=== PATIENT | female | born 1990 | race Caucasian/White ===

== ENCOUNTER 2019-08-03 11:59 | Outpatient (CLI) | payer OTHER, SELFPAY ==
--- NOTE | 2019-08-03 12:39 | ECG_ITS ---
Measurements Intervals [place] Rate: 64 P: 27 MT: 137 QRS: 10 QRSD: 106 T: 5 QT: 447 QTc: 463 Interpretive Statements SINUS RHYTHM INCOMPLETE RIGHT BUNDLE BRANCH BLOCK BORDERLINE T WAVE ABNORMALITY- INFERIOR LEADS BORDERLINE ECG Electronically Signed On 08-03-2019 14:22:39 COMMUNITY EDUCATOR by Jaciel Amaro D.O.
[2019-08-03 12:49] LABS: Hematocrit 40.5 % (37.0-47.0); Hemoglobin 13.3 g/dL (12.0-15.0); Mean Corpuscular HGB Conc 32.8 g/dl (32-36); Mean Corpuscular Hemoglobin 30.5 pg (26-34); Mean Corpuscular Volume 92.9 fl (80-100); Mean Platelet Volume 11.7 fl (7.4-10.4); Platelet Count Result 236 k/mm3 (150-375); Red Blood Count 4.36 M/mm3 (4.2-5.4); Red Cell Distribution Width 13.1 % (11.5-14.5); White Blood Count 10.8 K/mm3 (4.5-10.0)
[2019-08-03 12:55] LABS: Alanine Aminotransferase 36 U/L (4-35); Alkaline Phosphatase 71 U/L (38-126); Aspartate Amino Transferase 28 U/L (14-36); Bilirubin,Total 0.4 mg/dL (0.2-1.3); Blood Urea Nitrogen 9 mg/dL (7-17); Calcium 9.1 mg/dL (8.4-10.2); Carbon Dioxide 23 mmol/L (22-30); Chloride 103 mmol/L (98-107); Estimated Glomerular Filt Rate > 60; Glucose 98 mg/dL (65-105); Potassium 4.3 mmol/L (3.4-5.0); Sodium 141 mmol/L (137-145)
[2019-08-03 13:14] LABS: Add Urine Microscopic? YES; Appearance Urine Cloudy (Clear); Bacteria Urine Trace /hpf; Bilirubin Urine Negative (Negative); Blood Urine Negative (Negative); Color Urine Yellow (Yellow); Glucose Urine UA Negative (Negative); Ketones Urine Negative (Negative); Leukocyte Esterase Ur 2+ LEU/UL (NEGATIVE); Mucus Urine Heavy /lpf; Nitrate Urine Negative (Negative); Protein Urine Negative (Negative); Specific Grav Ur 1.021 (1.001-1.035); Squamous Epithelial Cell Urine Many /hpf (Few); Urobilinogen Urine Negative mg/dL (<2.0)
[2019-08-03 13:25] LABS: Hepatitis B Surface Antigen Negative (Negative)
[2019-08-03 13:31] LABS: HAV RESULT Negative (Negative); Hepatitis B Core IgM Result Negative (Negative)
[2019-08-03 13:43] LABS: Hepatitis C Virus Antibody Negative (Negative)
[2019-08-06 00:44] LABS: Amphetamines negative; Barbiturates negative; Benzodiazepines negative; Cocaine Metabolites negative; Marijuana Metabolites POSITIVE; PCP negative
[2019-08-06 07:26] LABS: Rapid Plasma Reagin Non-Reactive (NonReactive)
== END 2019-08-03 12:00 | disposition home or self-care (01) ==
DX: Z51.81 Encounter for therapeutic drug level monitoring (principal); Z79.899 Other long term (current) drug therapy; F11.20 Opioid dependence, uncomplicated; I45.10 Unspecified right bundle-branch block
CPT/HCPCS: 36415; 80053; 80074; 80307; 81001; 85027; 86592; 93005

== ENCOUNTER 2023-04-28 17:17 | Emergency (ER) | payer OTHER, SELFPAY ==
--- NOTE | ~2023-04-28 | XR_ITS ---
EXAMINATION: XR chest 2V DATE: 04/28/2023 17:45 INDICATION: Cough. Shortness of breath. TECHNIQUE: Frontal and lateral views of the chest were obtained. COMPARISON: Chest 2 views 10/12/2018, chest CT 10/12/2018 FINDINGS: There is no pneumonia, pleural effusion, or pneumothorax. The heart size is normal. IMPRESSION: 1. No acute cardiopulmonary disease. Reviewed, dictated and finalized at location E. [facility]
--- NOTE | 2023-04-28 17:30 | ED.URI ---
HPI - URI/Sore Throat General Chief Complaint: Upper Respiratory Infection Stated Complaint: short of breath, sinus pressure Time Seen by Provider: 04/28/23 17:30 Source: patient, RN notes reviewed and old records reviewed Mode of arrival: ambulatory Limitations: no limitations History of Present Illness HPI Narrative: 32-year-old female presents to the [facility] with complaints of sinus congestion, shortness of breath, productive cough for 10 days. Had been taking Mucinex with no relief. Patient is a smoker. Related Data Home Medications Medication Instructions Recorded Confirmed buprenorphine 8 mg-naloxone 2 mg 1 tablet sublingual DIRECTED 04/28/23 04/28/23 sublingual tablet quetiapine 50 mg tablet 50 mg DIRECTED 04/28/23 04/28/23 Allergies Allergy/AdvReac Type Severity Reaction Status Date / Time amoxicillin [From Augmentin] Allergy Mild Hypertensio Verified 04/28/23 17:49 n clavulanic acid Allergy Mild Hypertensio Verified 04/28/23 17:49 [From Augmentin] n Review of Systems Review of Systems: All systems reviewed & are unremarkable except as noted in HPI and below Constitutional: Constitutional: Reports no additional constitutional complaints Eyes: Eyes: Reports no additional eye complaints ENT: Reports as per HPI Cardiovascular: Cardiovascular: Reports no additional cardiovascular complaints, Denies chest pain and Denies dyspnea Respiratory: Respiratory: Reports as per HPI, Reports chest congestion, Reports cough and Denies dyspnea Gastrointestinal: Gastrointestinal: Reports no additional gastrointestinal complaints, Denies abdominal pain, Denies nausea and Denies vomiting Musculoskeletal: Musculoskeletal: Reports no additional musculoskeletal complaints Integumentary/Breasts: Skin/Breast: Reports system reviewed and no additional complaints, except as docu Neurologic: Reports system reviewed and no additional complaints, except as documented Psychiatric: Psychiatric: Reports no additional psychiatric complaints Allergic/Immunologic: Allergic/Immunologic: Reports no additional allergic/immunologic complaints PMFSH Past Medical History Medical History (Updated 04/28/23 @ 19:24 by Keeley Kaba APRN) Anxiety and depression Comments At the time of my signature, I reviewed and agree with the nursing past medical, surgical, social, and family history. There is no relevant family history pertinent to the patient complaint. Exam Const: General: cooperative, healthy appearing, comfortable, no acute distress, well developed, alert and well nourished Nutritional Appearance: well nourished and obese Orientation/consciousness: patient oriented x3 Limitations: no limitations HENMT: Head: normal to inspection Ears: hearing grossly normal bilaterally, external ears normal, TM's normal bilaterally, EAC's normal, mastoids normal and no periauricular adenopathy Face/Nose/Sinus: Normal external nose present, Normal nares present, Normal nasal mucous membranes and turbinates present, normal facial exam and face symmetric Face and sinus: normal facial exam and face symmetric Mouth: Yes Normal oral and palatal mucosa present, Yes lip normal and Yes moist mucous membranes Throat: posterior oropharynx normal, uvula midline and postnasal drainage Eyes: General: appearance normal, both eyes and all related structures Alignment and Position: alignment normal Periorbital: periorbital findings normal Pupils: Equal, round and reactive pupils present EOM: EOMs intact bilaterally Neck: Neck: normal visual inspection, full ROM, no lymphadenopathy and no meningeal signs Chest: Chest palpation & inspection: normal inspection of the chest Resp: Effort & Inspection: normal respiratory effort and able to speak in complete sentences Auscultation: no crackles, no rales, no rhonchi and wheezes inspiratory wheezes and throughout Cardio: Rate: regular rate Rhythm: regular rhythm Back/Spine/Pelvis: Ce
[2023-04-28 17:31] VITALS: BP 116/76; PULSE 81; RESP 16; TEMP 36.7; O2SAT 97
[2023-04-28 17:49] VITALS: BP 116/76; PULSE 81; RESP 16; TEMP 36.7; O2SAT 97
== END 2023-04-28 18:04 | disposition home or self-care (01) ==
PROVIDERS: Emergency Provider Nurse Practitioner
DX: J40 Bronchitis, not specified as acute or chronic (principal)
CPT/HCPCS: 71046; 99213; G0463

== ENCOUNTER 2023-06-18 16:43 | Emergency (ER) | payer OTHER, SELFPAY ==
[2023-06-18 16:53] VITALS: BP 137/69; PULSE 65; RESP 16; TEMP 36.1; O2SAT 98
--- NOTE | 2023-06-18 17:51 | ED.DENTAL ---
HPI - Dental/Oral General Chief complaint: Dental/Oral Stated complaint: tooth pain right side Time Seen by Provider: 06/18/23 17:51 Source: patient Mode of arrival: ambulatory Limitations: no limitations History of Present Illness HPI Narrative: 32-year-old female presents with right lower dental pain for 2 days. Afebrile. Does not a dentist. Requesting antibiotic and viscous lidocaine. All systems reviewed and negative except as noted above. Related Data Allergies Allergy/AdvReac Type Severity Reaction Status Date / Time amoxicillin [From Augmentin] Allergy Mild Hypertensio Verified 04/28/23 17:49 n clavulanic acid Allergy Mild Hypertensio Verified 04/28/23 17:49 [From Augmentin] n Review of Systems Review of Systems: CONSTITUTIONAL: Denies fever, chills, or sweats. EYES: Denies visual changes, redness, or discharge. ENT: Denies rhinorrhea, congestion, sore throat, or otalgia. Reports right lower dental pain. CARDIOVASCULAR: Denies chest pain, palpitations, or edema. RESPIRATORY: Denies cough or dyspnea. GASTROINTESTINAL: Denies abdominal pain, nausea, vomiting, or diarrhea. GENITOURINARY: Denies dysuria or hematuria. SKIN: Denies rash or itching. MUSCULOSKELETAL: Denies back pain, joint pain, or myalgia. NEUROLOGIC: Denies headache, numbness, or weakness. PSYCHIATRIC: Denies anxiety or depression. All other systems reviewed are negative, except as documented in HPI. [facility] Past Medical History Medical History (Updated 06/18/23 @ 17:55 by Jennyfer So NP) Anxiety and depression Comments At time of signature, agree with nursing past medical, surgical, social and family history. There is no relevant family history pertinent to the presenting complaint. Exam Narrative: GENERAL: This is a well-nourished, well-developed patient, in no apparent distress. HEAD: normocephalic, atraumatic. EYES: PERRL. Sclera clear/white. Vision is grossly intact. EARS: External ears normal NOSE: External nose normal MOUTH: multiple decayed broken teeth. some broken down to gumline. tooth # 31 decayed, broken down to gumline, tender on palpation. NECK: Neck supple, non-tender without lymphadenopathy, masses or thyromegaly. CARDIOVASCULAR: Regular rate and rhythm without murmurs, gallops, or rubs. RESPIRATORY: Clear to auscultation. Breath sounds equal bilaterally. No wheezes, rales, or rhonchi. SKIN: warm, Dry, intact with no suspicious lesions or rash, good texture and turgor. NEURO: awake, alert, and oriented to person, place and time. There were no obvious focal neurologic abnormalities. EXTREMITIES: No joint tenderness, effusion, or edema noted. Course Course Level of Care: Express Care Visit Vital Signs Vital signs: Vital Signs Temperature 36.1 C L 06/18/23 16:53 Pulse Rate 65 06/18/23 16:53 Respiratory Rate 16 06/18/23 16:53 Blood Pressure 137/69 06/18/23 16:53 Pulse Oximetry 98 06/18/23 16:53 Oxygen Delivery Room Air 06/18/23 16:53 Temperature 36.1 C L 06/18/23 16:53 Pulse Rate 65 06/18/23 16:53 Respiratory Rate 16 06/18/23 16:53 Blood Pressure 137/69 06/18/23 16:53 Pulse Oximetry 98 06/18/23 16:53 Oxygen Delivery Room Air 06/18/23 16:53 Reviewed MDM - Dental/Oral MDM Narrative Medical decision making narrative: Patient is aware of diagnosis, understands and agrees to treatment plan. Anticipatory guidance given. Patient agrees to follow-up as directed and is aware of reasons to seek care at the emergency department. Portions of this record may have been created with voice recognition software Differential Diagnosis Differential diagnosis: Likely dental caries and toothache Discharge Plan Discharge Clinical Impression: Pain, dental Patient Disposition: Home, Self-Care Condition: Stable Instructions: Antibiotic Form, Toothache (ED) Additional Instructions: take medications as prescribed. Take ibuprofen or Ty
== END 2023-06-18 18:07 | disposition home or self-care (01) ==
PROVIDERS: Emergency Provider Nurse Practitioner Family
DX: K08.89 Other specified disorders of teeth and supporting structures (principal)
CPT/HCPCS: 99213; G0463

== ENCOUNTER 2023-11-22 19:46 | Emergency (ER) | payer OTHER, SELFPAY ==
--- NOTE | 2023-11-22 19:48 | ED.BACK ---
HPI - Back Pain/Injury General Chief Complaint: Abdominal Pain Stated Complaint: pain in lower back Time Seen by Provider: 11/22/23 19:57 Source: patient, RN notes reviewed and old records reviewed Mode of arrival: ambulatory Limitations: no limitations History of Present Illness HPI Narrative: 33-year-old female presents to the [facility] with complaints abdominal pain wrapping around to her lower back. States this started about a week ago. States that she has taken ibuprofen with no relief. Patient denies any concerns for STDs. Patient reports that the right lower quadrant has been getting worse. In clinic patient is tachycardic, low-grade fever Last menstrual period was 10 years ago, is currently on her 2nd IUD which she states is over 5 years Onset (ago): week(s) (1) Treatments prior to arrival: NSAIDS Related Data Home Medications Medication Instructions Recorded Confirmed buprenorphine 8 mg-naloxone 2 mg 1 film buccal Q24H 11/22/23 11/22/23 sublingual film (Suboxone) quetiapine 50 mg tablet 50 mg PO HS 11/22/23 11/22/23 Allergies Allergy/AdvReac Type Severity Reaction Status Date / Time amoxicillin [From Augmentin] Allergy Mild Hypertensio Verified 11/22/23 19:48 n clavulanic acid Allergy Mild Hypertensio Verified 11/22/23 19:48 [From Augmentin] n Review of Systems Review of Systems: All systems reviewed & are unremarkable except as noted in HPI and below Constitutional: Constitutional: Reports no additional constitutional complaints Eyes: Eyes: Reports no additional eye complaints ENT: Reports system reviewed and no additional complaints, except as documented Cardiovascular: Cardiovascular: Reports no additional cardiovascular complaints, Denies chest pain and Denies dyspnea Respiratory: Respiratory: Reports no additional respiratory complaints, Denies chest congestion, Denies cough and Denies dyspnea Gastrointestinal: Gastrointestinal: Reports as per HPI, Reports abdominal pain, Reports nausea and Denies vomiting Genitourinary: Genitourinary: Reports as per HPI Musculoskeletal: Musculoskeletal: Reports as per HPI Integumentary/Breasts: Skin/Breast: Reports system reviewed and no additional complaints, except as docu Neurologic: Reports system reviewed and no additional complaints, except as documented Psychiatric: Psychiatric: Reports no additional psychiatric complaints Allergic/Immunologic: Allergic/Immunologic: Reports no additional allergic/immunologic complaints PMFSH Past Medical History Medical History (Updated 11/22/23 @ 20:05 by Keeley Kaba APRN) Anxiety and depression Social History Social History (Updated 11/22/23 @ 20:16 by Keeley Kaba APRN) Substance use type: former substance user Other substance usage details: Fentanyl Comments At the time of my signature, I reviewed and agree with the nursing past medical, surgical, social, and family history. There is no relevant family history pertinent to the patient complaint. Exam Const: General: cooperative, healthy appearing, comfortable, no acute distress, well developed, alert and well nourished Nutritional Appearance: well nourished and obese Orientation/consciousness: patient oriented x3 Limitations: no limitations HENMT: Head: normal to inspection Ears: hearing grossly normal bilaterally and external ears normal Face/Nose/Sinus: Normal external nose present, Normal nares present, Normal nasal mucous membranes and turbinates present, normal facial exam and face symmetric Face and sinus: normal facial exam and face symmetric Eyes: General: appearance normal, both eyes and all related structures Alignment and Position: alignment normal Periorbital: periorbital findings normal Pupils: Equal, round and reactive pupils present EOM: EOMs intact bilaterally Neck: Neck: normal visual inspection, full ROM, no lymphadenopathy and no meningeal signs Chest: Chest palpation & inspection: normal inspection
[2023-11-22 19:55] VITALS: BP 140/79; PULSE 123; RESP 18; TEMP 37.8; O2SAT 98
--- NOTE | 2023-11-22 20:11 | PC.NURSE ---
CALL TO 911 FOR FURTHER EVAL AT [facility] FOR WORSENING LOWER ABD PAIN, RLQ PAIN. [facility]
== END 2023-11-22 20:17 | disposition short-term general hospital (02) ==
PROVIDERS: Emergency Provider Nurse Practitioner
DX: N39.0 Urinary tract infection, site not specified (principal); B96.20 Unspecified Escherichia coli [E. coli] as the cause of diseases classified elsewhere; Z32.02 Encounter for pregnancy test, result negative; F32.A Depression, unspecified
CPT/HCPCS: 81003; 81025; 87077; 87086; 87186; 99215; G0463

== ENCOUNTER 2023-11-22 20:28 | Inpatient (IN) | payer OTHER, SELFPAY ==
--- NOTE | ~2023-11-22 | MR_ITS ---
EXAMINATION: MR MRCP wo/w con/w 3D wo ind DATE: 11/23/2023 13:24 INDICATION: Pancreas lesion. TECHNIQUE: Magnetic resonance imaging (MRI) of the abdomen was performed without and with 20 mL Multi Jh intravenous contrast. Sequences included coronal T2-weighted FS FSE, coronal T2-weighted FSE, a xial T1-weighted LAVA, coronal FS FIESTA, axial dual-echo T1-weighted SPGR, coronal lava-FLEX, sagitt al T2-weighted FSE, axial T2-weighted FSE, and axial DWI. Thick-slab T2-weighted FSE images were obta ined for magnetic resonance cholangiopancreatography (MRCP). Maximum intensity projection 3-D reconst ructions of the volumetric data were created by the technologist. Postcontrast sequences included cor onal LAVA-flex and time course of axial T1-weighted LAVA. COMPARISON: CT abdomen and pelvis 11/22/2023 FINDINGS: ABDOMEN MRI: There is diffuse hepatic steatosis. There is a gallstone in the gallbladder which is nor mal in size. The spleen, pancreas, and adrenal glands are normal. The kidneys demonstrate striated ne phrograms, consistent with pyelonephritis. There are no dilated loops of bowel. There is mild peripor calixto lymphadenopathy, likely reactive. ABDOMEN MRCP: The common duct is normal and measures 5 mm. No choledocholithiasis. IMPRESSION: 1. Bilateral pyelonephritis. 2. Normal pancreas. 3. Mild periportal lymphadenopathy, likely reactive. Reviewed, dictated and finalized at location A.
--- NOTE | ~2023-11-22 | CT_ITS ---
EXAMINATION: CT abdomen pelvis w con DATE: 11/22/2023 23:34 INDICATION: B/L flank pain TECHNIQUE: Computed tomography (CT) of the abdomen and pelvis was performed with 100 mL Omnipaque-350 intravenous contrast. Automated exposure control and iterative reconstruction technique were employe d. The dose-length product was 1799.16 mGy-cm. COMPARISON: 08/10/2017. FINDINGS: Lower thorax: Unremarkable Liver: Normal. Biliary/Gallbladder: Gallbladder is normal. No bile duct dilation. Pancreas: Lobular contour of the head of the pancreas with the suggestion of a 2.5 cm slightly hypere nhancing lesion. Spleen: Normal. Adrenals:No mass. Kidneys: Patchy bilateral renal enhancement. Mild urothelial enhancement in the ureters. Subcentimete r left midpole angiomyolipoma. No suspicious mass or obstructing stone. GI tract: No small or large bowel dilation. Normal appendix. Mesentery/Peritoneum: No ascites, mass, or free air. Retroperitoneum: No mass. Pelvis: Well distended urinary bladder with mild wall thickening. Normal uterus. Normal ovaries. 3.2 cm simple right ovarian cyst which requires no additional evaluation. Soft Tissues: Soft tissues and body wall unremarkable. Bones: No acute osseous finding. IMPRESSION: Possible 2.5 cm slightly hyperenhancing pancreatic head lesion, recommend nonemergent but timely outp atient MRI of the pancreas without and with contrast for further evaluation. Cystitis with ascending infection and bilateral pyelonephritis. Reviewed, dictated and finalized at location K. IMPRESSION: Possible 2.5 cm slightly hyperenhancing pancreatic head lesion, recommend nonem ergent but timely outpatient MRI of the pancreas without and with contrast for further evaluation. Cystitis with ascending infection and bilateral pyelonephritis.
[2023-11-22 20:37] VITALS: BP 140/88; PULSE 130; RESP 15; TEMP 37.5; O2SAT 100
[2023-11-22] MEDS: SODIUM CHLORIDE 0.9% IV 1,000 ML 999 ML IV CONT ×2 (21:07→22:50)
[2023-11-22] MEDS: ONDANSETRON INJ 4 MG/2 ML VIAL IV PUSH ×2 (21:09→22:51)
[2023-11-22 21:14] LABS: Basophils Percent Auto 0.3 % (0.2-1.2); Eosinophils Absolute Auto 0.1 K/mm3 (0-0.3); Eosinophils Percent Auto 0.7 % (0-4.4); Hematocrit 41.8 % (37.0-47.0); Hemoglobin 13.9 g/dL (12.0-15.0); Immature Granulocyte Absolute 0.04 K/mm3 (0.00-0.031); Immature Granulocyte Percent A 0.3 % (0-0.5); Lymphocytes Absolute Auto 1.95 K/mm3 (0.9-3.2); Lymphocytes Percent Auto 15.5 % (18.3-44.2); Mean Corpuscular HGB Conc 33.3 g/dl (32-36); Mean Corpuscular Hemoglobin 30.5 pg (26-34); Mean Corpuscular Volume 91.9 fl (80-100); Mean Platelet Volume 11.2 fl (7.4-10.4); Monocytes Absolute Auto 0.9 K/mm3 (0.1-0.6); Monocytes Percent Auto 6.8 % (2.6-8.5); Neutrophils Absolute Auto 9.6 K/mm3 (1.3-6.7); Neutrophils Percent Auto 76.4 % (45.5-73.1); Platelet Count Result 196 k/mm3 (150-375); Red Blood Count 4.55 M/mm3 (4.2-5.4); Red Cell Distribution Width 12.9 % (11.5-14.5); White Blood Count 12.6 K/mm3 (4.5-10.0)
[2023-11-22 21:18] LABS: Appearance Urine Cloudy (Clear); Bacteria Urine 4+ /hpf; Bilirubin Urine Negative (Negative); Blood Urine 1+ (Negative); Color Urine Yellow (Yellow); Glucose Urine UA Negative (Negative); Ketones Urine Negative (Negative); Leukocyte Esterase Ur 3+ LEU/UL (Negative); Nitrate Urine Positive (Negative); Non Pathogenic Casts 0-2; Protein Urine 2+ mg/dL (Negative); RBC Urine 0-2 /hpf (0-2); Specific Grav Ur 1.012 (1.001-1.035); Squamous Epithelial Cell Urine Few /hpf (Few); WBC Urine >100 /hpf (0-3); pH Urine 7.5 (5.0-9.0)
[2023-11-22 21:24] LABS: Add Urine Microscopic? YES; Lactic Acid Reflex 1.3 mmol/L (0.7-2.0)
[2023-11-22 21:31] VITALS: BP 111/45; PULSE 109; RESP 22; O2SAT 100
--- NOTE | 2023-11-22 21:45 | PC.NURSE ---
Phlebotomy contacted to redraw pt labs.
[2023-11-22 22:15] VITALS: BP 128/74; PULSE 106; RESP 20; O2SAT 100
[2023-11-22] MEDS: ACETAMINOPHEN 500 MG TABLET 1000 MG PO (22:51)
[2023-11-22] MEDS: MORPHINE SULFATE (*CRX) 4 MG/ML INJ IV PUSH (22:56)
[2023-11-22 23:04] LABS: Alanine Aminotransferase 95 U/L (6-35); Albumin Level 4.6 g/dL (3.5-5.1); Alkaline Phosphatase 84 U/L (38-126); Anion Gap 8 mmol/L (4-12); Aspartate Amino Transferase 57 U/L (14-36); Blood Urea Nitrogen 12 mg/dL (7-17); Calcium 9.1 mg/dL (8.4-10.2); Carbon Dioxide 26 mmol/L (22-30); Chloride 105 mmol/L (98-107); Estimated CRCL calculation 104 ml/min; Estimated Glomerular Filt Rate > 60; Glucose 108 mg/dL (65-110); Lipase 97 U/L (23-300); Potassium 5.1 mmol/L (3.4-5.0); Sodium 139 mmol/L (137-145)
--- NOTE | 2023-11-22 23:14 | ED.ABDPAIN ---
HPI - Abdominal Pain General Chief Complaint: Abdominal Pain <SARAH Carodna Last Filed: 11/23/23 01:59> Stated Complaint: R flank pain <SARAH Cardona Last Filed: 11/23/23 01:59> Time Seen by Provider: 11/22/23 21:58 <SARAH Cardona Last Filed: 11/23/23 01:59> Source: patient <SARAH Cardona Last Filed: 11/23/23 01:59> Mode of arrival: EMS <SARAH Cardona Filed: 11/23/23 01:59> Limitations: no limitations <SARAH Cardona Last Filed: 11/23/23 01:59> History of Present Illness HPI narrative: Patient is a 33-year-old female, with PMH of former IVDA currently on Suboxone therapy, who presents to the ED with report of abdominal pain. Patient reports having pain throughout her right-sided abdomen, radiating around to her right mid back for the last 1 week. States pain became significantly worse yesterday into today. Does extend slightly to left sided abd/back. She went to an urgent care where she was found to be tachycardic, febrile, positive urinalysis for infection. She was then sent here for further evaluation. Patient denies any urinary complaints. Denies dysuria or hematuria. She does report nausea with dry heaving, denies diarrhea, constipation. Denied knowingly having a fever. She has family history of kidney stones, denies personal history. <SARAH Cardona Last Filed: 11/23/23 01:59> Related Data Home Medications: Home Medications Medication Instructions Recorded Confirmed buprenorphine 8 mg-naloxone 2 mg 1 film buccal TID 11/22/23 11/23/23 sublingual film (Suboxone) quetiapine 50 mg tablet 50 mg PO HS 11/22/23 11/23/23 <SARAH Cardona Last Filed: 11/23/23 01:59> Allergies/Adverse Reactions: Allergies Allergy/AdvReac Type Severity Reaction Status Date / Time amoxicillin [From Augmentin] Allergy Mild Hypertensio Verified 11/22/23 19:48 n clavulanic acid Allergy Mild Hypertensio Verified 11/22/23 19:48 [From Augmentin] n <Danielle Jackson PA-C - Last Filed: 11/23/23 01:59> Review of Systems Review of Systems: CONSTITUTIONAL: See HPI GASTROINTESTINAL: See HPI. GENITOURINARY: Denies dysuria or hematuria. MUSCULOSKELETAL: See HPI. <Danielle Jackson PA-C - Last Filed: 11/23/23 01:59> All systems reviewed & are unremarkable except as noted in HPI and below <SARAH Cardona Last Filed: 11/23/23 01:59> [facility] Past Medical History Medical History: Medical History (Updated 11/23/23 @ 03:42 by Nadine Gutiérrez DO) Anxiety and depression Hepatitis C Intravenous drug abuse in remission Patient used IV methamphetamines, heroin, fentanyl, prescription narcotics and smoked methamphetamines in the past. She entered rehab in October of 2022. Morbid obesity <SARAH Cardona Last Filed: 11/23/23 01:59> Surgical History Surgical History: Surgical History (Updated 11/23/23 @ 03:42 by Nadine Gutiérrez DO) History of tonsillectomy and adenoidectomy <SARAH Cardona Last Filed: 11/23/23 01:59> Family History Family History: Family History Grandparent Pancreatic cancer Cancer <SARAH Cardona Last Filed: 11/23/23 01:59> Social History Social History: Social History (Updated 11/23/23 @ 03:49 by Nadine Gutiérrez DO) Social History: Patient lives at home with her 10-year-old son and her grandmother and grandfather. She was raised by her grandparents after her father overdosed and her mother committed suicide. Her son is 10 years old (as of November 2023). She has smoked 1-2 packs cigarettes per day since she was in her early teens. She does drink alcohol on occasion. She has a long history of polysubstance abuse. She started smoking and injecting meth at 21 and then in her mid 20s transit
[2023-11-22 23:39] LABS: SPREG INTERNAL CONTROL Positive; Serum Qual hCG Negative
--- NOTE | 2023-11-22 23:49 | PC.NURSE ---
IV US placed by EDP Dr. Chappell infiltrated. EDP Danielle made aware. Meds paused in AUG. IV removed.
[2023-11-23] VITALS (10 sets, daily range): BP systolic 101–129; BP diastolic 57–77; PULSE 82–110; RESP 16–22; TEMP 36.5–37.2; O2SAT 97–100; BMI 44.6
[2023-11-23] MEDS: KETOROLAC (*BKC) 60 MG/2 ML VIAL IM (00:09)
--- NOTE | 2023-11-23 01:40 | ADMGEN ---
This patient, Yohana Mathis, was admitted to Medical Room 243-. Patient/family oriented to hospital policies and general routines including ID bracelet, bed and alarms, visiting hours, pain management, procedures, bathroom and other care routines, personal items, smoking policy, room service/diet, and visiting hours. Information on how to activate the Rapid Response Team has been discussed. Patient/Family are encouraged to report perceived risks to care and to ask questions if they do not understand what they are told or what they should do.
--- NOTE | 2023-11-23 03:30 | PM.IMHP ---
H&P: HPI History of Present Illness Date/Time: 11/23/23 03:30 Chief Complaint: Lower abdominal pain and bilateral back Narrative: 33-year-old female with a mass medical history of IV drug abuse in remission for 1 year, depression, hepatitis-C and morbid obesity presented to the ER with suprapubic pain and bilateral flank pain for 1 week. The patient reports that while at work the other day she began having lower abdominal pain and bilateral flank pain. 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 She denied having any dysuria or changes in urinary frequency. She reports she has chronic urinary frequency but had not noticed any increased urgency or urinary incontinence. She did have her port of feeling feverish but did not check her temperature. She reports denies feeling nauseated or having decreased appetite but was having regurgitation of anything she would eat or drink. She reports that the pain her back is aching in nature and worse with walking and movement. Pain is not reproducible with exam or palpation. She reports that the lower abdominal pain was more for pressure-like sensation. As time progressed the pain in her back seemed to be getting worse and was developing a pulsating quality her pain was severe in intensity. She reports that after she received Tylenol, Toradol, antiemetics and antibiotics in the ER her pain went from a 10/10 down to a 3/10. Patient was initially tachycardic on presentation with heart rates in the 130s but after she received 1 L of IV fluids her heart rate was down to the 90s. Unfortunately the patient has poor venous access due to her history of IV meth and heroin use over the years and she lost her IV access and was unable to received a complete 2 L in bolus. She is intermittently sexually active and does not practice post coital voiding. She denies any GI symptoms but does know that she has a history of hepatitis C. she has had difficulty following through with follow-up for outpatient studies in the past including treatment of her hepatitis-C. She was afraid received treatment due to perceived risk of side effects. She does not have a history of frequent UTIs. Patient had taken [id number] NSAIDs without relief in symptoms CT scan with contrast performed in the ER demonstrated cystitis with ascending infection and bilateral pyelonephritis as well as a 2.5 cm slightly hyperenhancing pancreatic head lesion for which nonemergent MRI without contrast was recommended. The patient reports that her grandmother is currently undergoing treatment for stage IV pancreatic cancer. She reports that since she quit using drugs in October of 2022 she has gained a significant amount of weight. She does report flat mood and chronic fatigue. She says that that is why she started using drugs years ago was to give herself some energy than she discovered she ended up after intake other drugs to bring her down. She has no desire to use drugs at this time but is taking Suboxone t.i.d.. She has been trying to get into a counselor for her mood difficulties and was unable to establish follow-up with chest not and has now switched to [facility]. She does report intermittent tooth pain and dental infections but has not had a dental infection in a couple of months. She does occasionally report shortness of breath with anxiety. She also states that she feels short of breath a lot of the time with activity due to her size. Hypothyroidism is listed under the patient's past medical history on nursing documentation but patient had denied history of thyroid disease at the time of my evaluation Review of Systems Review of Systems: 12 systems were reviewed with pertinent positives and negatives per HPI. Except as documented in the HPI, all other systems were reviewed and are negative. She reports poor memory due to her drug use. She reports fatigue, anhedonia and weight gain is worsened over t
[2023-11-23] MEDS: QUEtiapine FUMARATE 25 MG TABLET 50 MG PO ×2 (03:40→21:18)
[2023-11-23 05:36] LABS: Thyroid Stimulating Hormone Reflex 0.752 uIU/mL (0.465-4.68)
[2023-11-23] MEDS: KETOROLAC 30 MG/ML VIAL (*BKC) IV PUSH (08:20)
[2023-11-23] MEDS: FAMOTIDINE 20 MG TABLET PO ×2 (09:07→21:18)
[2023-11-23] MEDS: ACETAMINOPHEN 500 MG TABLET 1000 MG PO ×2 (09:07→21:18)
[2023-11-23] MEDS: BUPRENORPHINE/NALOXONE (*CRX) 4 MG/1 MG SL FILM 2 EACH SUBLINGUAL ×2 (09:08→21:16)
--- NOTE | 2023-11-23 10:14 | PM.IMPN ---
Progress Note: A&P Assessment and Plan (1) Sepsis: Qualifiers: Sepsis acute organ dysfunction status: unspecified Sepsis type: sepsis due to unspecified organism Qualified Code(s): A41.9 - Sepsis, unspecified organism Code(s): A41.9 - Sepsis, unspecified organism Status: Acute Assessment and Plan: Urine and blood cultures in process. UA indicative of urinary tract infection and imaging indicates cystitis with ascending infection and bilateral pyelonephritis. Continue Rocephin pending cultures. No obstructive uropathy noted. (2) Pyelonephritis: Code(s): N12 - Tubulo-interstitial nephritis, not specified as acute or chronic Status: Acute Assessment and Plan: See above (3) Dehydration: Code(s): E86.0 - Dehydration Status: Acute Assessment and Plan: Status post IV fluid rehydration and oral rehydration after loss of IV site. New IV inserted by vascular access team (4) Lesion of pancreas: Code(s): K86.9 - Disease of pancreas, unspecified Status: Acute Assessment and Plan: MRCP with and without contrast ordered results pending (5) Fatigue: Qualifiers: Fatigue type: unspecified Qualified Code(s): R53.83 - Other fatigue Code(s): R53.83 - Other fatigue Status: Acute Assessment and Plan: Likely related to sepsis/urinary tract infection but also could be result pancreatic lesion (6) Morbid obesity: Code(s): E66.01 - Morbid (severe) obesity due to excess calories Status: Acute (7) Continuous tobacco abuse: Code(s): Z72.0 - Tobacco use Status: Acute Assessment and Plan: Nicotine patch in place Encouraged smoking cessation (8) Intravenous drug abuse in remission: Code(s): F19.11 - Other psychoactive substance abuse, in remission Status: Acute Assessment and Plan: Patient requesting Suboxone only twice daily instead of 3 times a day while hospitalized States that taking Suboxone too late in the day will cause her not to be able to sleep. Request dosing 8:00 a.m. and 8:00 p.m. so this was ordered. Patient aware that additional narcotic pain medication may not be effective due to taking Suboxone. Time Spent With Patient Time with patient: 25 - 35 minutes Subjective Date/time seen: 11/23/23 10:14 Interval history: 33-year-old female patient admitted for bilateral pyelonephritis with increased pain as well as a pancreatic lesion. Patient has history of IV drug abuse and is on Suboxone that she takes either 2 or 3 times a day depending on whether she is active in working up for just resting. If she takes it too late in the day it causes her difficulty to sleep. Patient requesting Suboxone twice daily while in the hospital instead of 3 times a day. She was having significant back pain this morning and new IV access was established so patient received Toradol 30 mg IV and then 15 mg IV q.6 was made available p.r.n. Review of Systems Review of Systems: All systems reviewed & are unremarkable except as noted in HPI and below Exam Narrative: Weight 102.8 kg BMI 44.7 Const: Other: Obese, uncomfortable appearing, appears stated age HENMT: Other: Head is normocephalic atraumatic, crowded posterior oropharynx, no oral pharyngeal erythema, multiple dental caries and several missing or broken teeth Eyes: Other: Pupils are equal and reactive bilaterally, mild conjunctival pallor, no scleral icterus Neck: Other: Large neck circumference, no JVD no obvious thyromegaly Resp: Other: Clear to auscultation bilaterally, no increased work of breathing Cardio: Other: Sinus tachycardia, 2+ bilateral radial pedal pulses, no murmur GI: Other: Obese, soft, nontender, normoactive bowel sounds, bilateral CVA tenderness Skin: Other: Warm and diaphoretic Neuro: Other: Alert orient x4, speech is clear, no facial
[2023-11-23 14:12] LABS: Alanine Aminotransferase 70 U/L (6-35); Albumin Level 3.6 g/dL (3.5-5.1); Alkaline Phosphatase 75 U/L (38-126); Anion Gap 9 mmol/L (4-12); Aspartate Amino Transferase 42 U/L (14-36); Bilirubin,Total 0.8 mg/dL (0.2-1.3); Blood Urea Nitrogen 16 mg/dL (7-17); Calcium 8.4 mg/dL (8.4-10.2); Carbon Dioxide 21 mmol/L (22-30); Chloride 107 mmol/L (98-107); Estimated CRCL calculation 116 ml/min; Estimated Glomerular Filt Rate > 60; Glucose 145 mg/dL (65-110); Potassium 3.8 mmol/L (3.4-5.0); Sodium 137 mmol/L (137-145)
[2023-11-23] MEDS: NICOTINE (*PBKC) 21 MG PATCH 1 PATCH TRANSDERM (14:13)
[2023-11-23] MEDS: cefTRIAXone 2 GM/NS 100 ML 2 GM/100 ML BAG IVPB (15:40)
[2023-11-23] MEDS: KETOROLAC 15 MG/ML VIAL (*BKC) IV PUSH ×3 (15:40→22:55)
[2023-11-23] MEDS: PROMETHAZINE HCL 25 MG/ML AMPUL IM (21:18)
[2023-11-24 04:43] VITALS: BP 108/53; PULSE 78; RESP 14; TEMP 36.5; O2SAT 100
[2023-11-24 05:01] LABS: Basophils Absolute Auto 0.1 K/mm3 (0.0-0.1); Basophils Percent Auto 0.3 % (0.2-1.2); Eosinophils Absolute Auto 0.1 K/mm3 (0-0.3); Eosinophils Percent Auto 0.3 % (0-4.4); Hematocrit 38.9 % (37.0-47.0); Hemoglobin 12.5 g/dL (12.0-15.0); Immature Granulocyte Absolute 0.18 K/mm3 (0.00-0.031); Lymphocytes Absolute Auto 1.61 K/mm3 (0.9-3.2); Lymphocytes Percent Auto 8.8 % (18.3-44.2); Mean Corpuscular HGB Conc 32.1 g/dl (32-36); Mean Corpuscular Hemoglobin 30.9 pg (26-34); Mean Corpuscular Volume 96.3 fl (80-100); Monocytes Absolute Auto 1.8 K/mm3 (0.1-0.6); Monocytes Percent Auto 9.6 % (2.6-8.5); Neutrophils Absolute Auto 14.7 K/mm3 (1.3-6.7); Platelet Count Result 145 k/mm3 (150-375); Red Blood Count 4.04 M/mm3 (4.2-5.4); Red Cell Distribution Width 13.1 % (11.5-14.5); White Blood Count 18.4 K/mm3 (4.5-10.0)
[2023-11-24 05:13] LABS: Alanine Aminotransferase 59 U/L (6-35); Albumin Level 3.7 g/dL (3.5-5.1); Alkaline Phosphatase 83 U/L (38-126); Anion Gap 7 mmol/L (4-12); Aspartate Amino Transferase 32 U/L (14-36); Bilirubin,Total 0.9 mg/dL (0.2-1.3); Blood Urea Nitrogen 19 mg/dL (7-17); Calcium 8.1 mg/dL (8.4-10.2); Carbon Dioxide 21 mmol/L (22-30); Chloride 108 mmol/L (98-107); Estimated CRCL calculation 104 ml/min; Estimated Glomerular Filt Rate > 60; Glucose 117 mg/dL (65-110); Magnesium 2.1 mg/dL (1.6-2.3); Potassium 3.9 mmol/L (3.4-5.0); Sodium 136 mmol/L (137-145)
[2023-11-24] MEDS: KETOROLAC 15 MG/ML VIAL (*BKC) IV PUSH ×3 (08:11→20:25)
[2023-11-24 08:15] VITALS: O2SAT 97
[2023-11-24] MEDS: NICOTINE (*PBKC) 21 MG PATCH 1 PATCH TRANSDERM (08:16)
[2023-11-24] MEDS: FAMOTIDINE 20 MG TABLET PO ×2 (08:18→20:27)
[2023-11-24] MEDS: BUPRENORPHINE/NALOXONE (*CRX) 4 MG/1 MG SL FILM 2 EACH SUBLINGUAL (10:39)
[2023-11-24] MEDS: diphenhydrAMINE HCl INJ 50 MG/ML VIAL 25 MG IV PUSH (10:43)
[2023-11-24] MEDS: METOCLOPRAMIDE HCL INJ 10 MG/2 ML VIAL IV PUSH (10:44)
[2023-11-24] MEDS: SUMAtriptan SUCCINATE 6 MG/0.5 ML VIAL SUB-Q (10:56)
--- NOTE | 2023-11-24 12:22 | P.PNIM_ITS ---
Progress Note: A&P Assessment and Plan (1) Bacteremia due to Escherichia coli: Code(s): R78.81 - Bacteremia; B96.20 - Unspecified Escherichia coli [E. coli] as the cause of diseases classified elsewhere Status: Acute Assessment and Plan: * Blood cultures positive for E coli and anaerobic bottle * Ceftriaxone converted to Bactrim * Awaiting sensitivities (2) Sepsis: Qualifiers: Sepsis acute organ dysfunction status: unspecified Sepsis type: sepsis due to unspecified organism Qualified Code(s): A41.9 - Sepsis, unspecified organism Code(s): A41.9 - Sepsis, unspecified organism Status: Acute Assessment and Plan: * Presented with WBC 12.6, tachycardia (HR 105-130), tachypnea RR of 22 which meets SIRS criteria * IV fluids given in the ED and continued on the unit * Blood cultures positive in one set as Ecoli * Urine culture positive Ecoli * Currently on Ceftriaxone, convert to levaquin 750 mg PO daily * WBC increasing 18.4 * Cultures pending sensitivities * Continue to follow * Most likely discharge in the am (3) Pyelonephritis: Code(s): N12 - Tubulo-interstitial nephritis, not specified as acute or chronic Status: Acute Assessment and Plan: * CT indicated pyelonephritis bilaterally with cystitis * IV ceftriaxone was converted to Bactrim * Continue trend labs and vital signs * White blood cell count to 18.4 today * Awaiting current sensitivities. (4) Lesion of pancreas: Code(s): K86.9 - Disease of pancreas, unspecified Status: Acute Assessment and Plan: * CT of the abdomen pelvis 2.5 cm hyperenhancing pancreatic head lesion * MRCP with and without contrast normal pancreas * Stable at this time (5) Morbid obesity: Code(s): E66.01 - Morbid (severe) obesity due to excess calories Status: Acute Assessment and Plan: * Lifestyle changes * Calorie restriction (6) Continuous tobacco abuse: Code(s): Z72.0 - Tobacco use Status: Acute Assessment and Plan: * Nicotine patch in place * Encouraged smoking cessation (7) Intravenous drug abuse in remission: Code(s): F19.11 - Other psychoactive substance abuse, in remission Status: Acute Assessment and Plan: * Patient requesting Suboxone only twice daily instead of 3 times a day while hospitalized * States that taking Suboxone too late in the day will cause her not to be able to sleep. * Request dosing 8:00 a.m. and 8:00 p.m. so this was ordered. * Patient aware that additional narcotic pain medication may not be effective due to taking Suboxone. Plan Patient is complaining of a migraine. Migraine cocktail given patient did state that she was relieved of her migraine at this time. Time Spent With Patient Time: 51 minutes Time with patient: Greater than 35 minutes Subjective Date/time seen: 11/24/23 12:22 Interval history: 11/22/2023 03:30 33-year-old female with a mass medical history of IV drug abuse in remission for 1 year, depression, hepatitis-C and morbid obesity presented to the ER with suprapubic pain and bilateral flank pain for 1 week. The patient reports that while at work the other day she began having lower abdominal pain and bilateral flank pain. 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
--- NOTE | 2023-11-24 12:22 | PM.IMPN ---
Progress Note: A&P Assessment and Plan (1) Bacteremia due to Escherichia coli: Code(s): R78.81 - Bacteremia; B96.20 - Unspecified Escherichia coli [E. coli] as the cause of diseases classified elsewhere Status: Acute Assessment and Plan: Blood cultures positive for E coli and anaerobic bottle Ceftriaxone converted to Bactrim Awaiting sensitivities (2) Sepsis: Qualifiers: Sepsis acute organ dysfunction status: unspecified Sepsis type: sepsis due to unspecified organism Qualified Code(s): A41.9 - Sepsis, unspecified organism Code(s): A41.9 - Sepsis, unspecified organism Status: Acute Assessment and Plan: Presented with WBC 12.6, tachycardia (HR 105-130), tachypnea RR of 22 which meets SIRS criteria IV fluids given in the ED and continued on the unit Blood cultures positive in one set as Ecoli Urine culture positive Ecoli Currently on Ceftriaxone, convert to levaquin 750 mg PO daily WBC increasing 18.4 Cultures pending sensitivities Continue to follow Most likely discharge in the am (3) Pyelonephritis: Code(s): N12 - Tubulo-interstitial nephritis, not specified as acute or chronic Status: Acute Assessment and Plan: CT indicated pyelonephritis bilaterally with cystitis IV ceftriaxone was converted to Bactrim Continue trend labs and vital signs White blood cell count to 18.4 today Awaiting current sensitivities. (4) Lesion of pancreas: Code(s): K86.9 - Disease of pancreas, unspecified Status: Acute Assessment and Plan: CT of the abdomen pelvis 2.5 cm hyperenhancing pancreatic head lesion MRCP with and without contrast normal pancreas Stable at this time (5) Morbid obesity: Code(s): E66.01 - Morbid (severe) obesity due to excess calories Status: Acute Assessment and Plan: Lifestyle changes Calorie restriction (6) Continuous tobacco abuse: Code(s): Z72.0 - Tobacco use Status: Acute Assessment and Plan: Nicotine patch in place Encouraged smoking cessation (7) Intravenous drug abuse in remission: Code(s): F19.11 - Other psychoactive substance abuse, in remission Status: Acute Assessment and Plan: Patient requesting Suboxone only twice daily instead of 3 times a day while hospitalized States that taking Suboxone too late in the day will cause her not to be able to sleep. Request dosing 8:00 a.m. and 8:00 p.m. so this was ordered. Patient aware that additional narcotic pain medication may not be effective due to taking Suboxone. Plan Patient is complaining of a migraine. Migraine cocktail given patient did state that she was relieved of her migraine at this time. Time Spent With Patient Time: 51 minutes Time with patient: Greater than 35 minutes Subjective Date/time seen: 11/24/23 12:22 Interval history: 11/22/2023 03:30 33-year-old female with a mass medical history of IV drug abuse in remission for 1 year, depression, hepatitis-C and morbid obesity presented to the ER with suprapubic pain and bilateral flank pain for 1 week. The patient reports that while at work the other day she began having lower abdominal pain and bilateral flank pain. 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 She denied having any dysuria or changes in urinary frequency. She reports she has chronic urinary frequency but had not noticed any increased urgency or urinary incontinence. She did have her port of feeling feverish but did not check her temperature. She reports denies feeling nauseated or having decreased appetite but was having regurgitation of anything she would eat or drink. She reports that the pain her back is aching in nature and worse with walking and movement. Pain is not reproducible with exam or palpation. She reports that the lower ab
[2023-11-24 13:51] VITALS: BP 113/53; PULSE 87; RESP 24; TEMP 36.5; O2SAT 100
[2023-11-24] MEDS: SULFAMETHOXAZOLE/TRIMETHOPRIM 800/160 MG DS TABLET 1 TAB PO (20:27)
[2023-11-24] MEDS: QUEtiapine FUMARATE 25 MG TABLET 50 MG PO (20:27)
[2023-11-24 21:31] VITALS: BP 116/59; PULSE 90; RESP 16; TEMP 36.6; O2SAT 99
[2023-11-25] MEDS: KETOROLAC 15 MG/ML VIAL (*BKC) IV PUSH ×2 (04:16→10:23)
[2023-11-25] MEDS: ONDANSETRON INJ 4 MG/2 ML VIAL IV PUSH (04:24)
[2023-11-25 04:55] LABS: Basophils Percent Auto 0.2 % (0.2-1.2); Eosinophils Absolute Auto 0.2 K/mm3 (0-0.3); Eosinophils Percent Auto 1.6 % (0-4.4); Hematocrit 38.1 % (37.0-47.0); Hemoglobin 12.5 g/dL (12.0-15.0); Immature Granulocyte Absolute 0.04 K/mm3 (0.00-0.031); Immature Granulocyte Percent A 0.3 % (0-0.5); Lymphocytes Percent Auto 18.7 % (18.3-44.2); Mean Corpuscular HGB Conc 32.8 g/dl (32-36); Mean Corpuscular Hemoglobin 30.6 pg (26-34); Mean Corpuscular Volume 93.4 fl (80-100); Mean Platelet Volume 11.6 fl (7.4-10.4); Monocytes Absolute Auto 1.1 K/mm3 (0.1-0.6); Monocytes Percent Auto 8.7 % (2.6-8.5); Neutrophils Absolute Auto 8.7 K/mm3 (1.3-6.7); Neutrophils Percent Auto 70.5 % (45.5-73.1); Platelet Count Result 184 k/mm3 (150-375); Red Blood Count 4.08 M/mm3 (4.2-5.4); Red Cell Distribution Width 13.2 % (11.5-14.5); White Blood Count 12.3 K/mm3 (4.5-10.0)
[2023-11-25 05:06] VITALS: BP 130/66; PULSE 100; RESP 16; TEMP 36.6; O2SAT 98
[2023-11-25 05:07] LABS: Alanine Aminotransferase 54 U/L (6-35); Albumin Level 3.9 g/dL (3.5-5.1); Alkaline Phosphatase 95 U/L (38-126); Anion Gap 7 mmol/L (4-12); Aspartate Amino Transferase 32 U/L (14-36); Bilirubin,Total 0.5 mg/dL (0.2-1.3); Blood Urea Nitrogen 18 mg/dL (7-17); Calcium 8.6 mg/dL (8.4-10.2); Carbon Dioxide 24 mmol/L (22-30); Chloride 108 mmol/L (98-107); Estimated CRCL calculation 94 ml/min; Estimated Glomerular Filt Rate > 60; Glucose 100 mg/dL (65-110); Magnesium 2.4 mg/dL (1.6-2.3); Potassium 3.8 mmol/L (3.4-5.0); Sodium 139 mmol/L (137-145)
--- NOTE | 2023-11-25 07:50 | P.DS_ITS ---
DS: Admitting Diagnosis Discharge Date 11/25/2023 0800 Admitting Diagnosis pylonephritis DS: Discharge Diagnosis Discharge Diagnosis (1) Bacteremia due to Escherichia coli: Code(s): R78.81 - Bacteremia; B96.20 - Unspecified Escherichia coli [E. coli] as the cause of diseases classified elsewhere Status: Acute Assessment and Plan: * Blood cultures positive for E coli and anaerobic bottle * Ceftriaxone converted to Bactrim * Awaiting sensitivities (2) Sepsis: Qualifiers: Sepsis acute organ dysfunction status: unspecified Sepsis type: sepsis due to unspecified organism Qualified Code(s): A41.9 - Sepsis, unspecified organism Code(s): A41.9 - Sepsis, unspecified organism Status: Acute Assessment and Plan: * Presented with WBC 12.6, tachycardia (HR 105-130), tachypnea RR of 22 which meets SIRS criteria * IV fluids given in the ED and continued on the unit * Blood cultures positive in one set as Ecoli * Urine culture positive Ecoli * Currently on Ceftriaxone, convert to levaquin 750 mg PO daily * WBC increasing 18.4 * Cultures pending sensitivities * Continue to follow * Most likely discharge in the am (3) Pyelonephritis: Code(s): N12 - Tubulo-interstitial nephritis, not specified as acute or chronic Status: Acute Assessment and Plan: * CT indicated pyelonephritis bilaterally with cystitis * IV ceftriaxone was converted to Bactrim * Continue trend labs and vital signs * White blood cell count to 18.4 today * Awaiting current sensitivities. (4) Lesion of pancreas: Code(s): K86.9 - Disease of pancreas, unspecified Status: Acute Assessment and Plan: * CT of the abdomen pelvis 2.5 cm hyperenhancing pancreatic head lesion * MRCP with and without contrast normal pancreas * Stable at this time (5) Morbid obesity: Code(s): E66.01 - Morbid (severe) obesity due to excess calories Status: Acute Assessment and Plan: * Lifestyle changes * Calorie restriction (6) Continuous tobacco abuse: Code(s): Z72.0 - Tobacco use Status: Acute Assessment and Plan: * Nicotine patch in place * Encouraged smoking cessation (7) Intravenous drug abuse in remission: Code(s): F19.11 - Other psychoactive substance abuse, in remission Status: Acute Assessment and Plan: * Patient requesting Suboxone only twice daily instead of 3 times a day while hospitalized * States that taking Suboxone too late in the day will cause her not to be able to sleep. * Request dosing 8:00 a.m. and 8:00 p.m. so this was ordered. * Patient aware that additional narcotic pain medication may not be effective due to taking Suboxone. Plan Patient is complaining of a migraine. Migraine cocktail given patient did state that she was relieved of her migraine at this time. DS: Summary Hospital Course Hospital Course: Patient is adamant female with a past medical history IV drug abuse, depression, CP, morbid obesity presented to the ED super pubic pain and bilateral flank pain for a week. Upon arrival white blood cell count was 12.6 did reach 18.4. IV fluids were given in the ED blood cultures did test positive for E coli 1 set. Urine culture was also positive for E coli. Patient was initiated on ceftriaxone to been converted to Levaquin. Levaquin had been cohen
--- NOTE | 2023-11-25 07:50 | PM.DS ---
DS: Admitting Diagnosis Discharge Date 11/25/2023 0800 Admitting Diagnosis pylonephritis DS: Discharge Diagnosis Discharge Diagnosis (1) Bacteremia due to Escherichia coli: Code(s): R78.81 - Bacteremia; B96.20 - Unspecified Escherichia coli [E. coli] as the cause of diseases classified elsewhere Status: Acute Assessment and Plan: Blood cultures positive for E coli and anaerobic bottle Ceftriaxone converted to Bactrim Awaiting sensitivities (2) Sepsis: Qualifiers: Sepsis acute organ dysfunction status: unspecified Sepsis type: sepsis due to unspecified organism Qualified Code(s): A41.9 - Sepsis, unspecified organism Code(s): A41.9 - Sepsis, unspecified organism Status: Acute Assessment and Plan: Presented with WBC 12.6, tachycardia (HR 105-130), tachypnea RR of 22 which meets SIRS criteria IV fluids given in the ED and continued on the unit Blood cultures positive in one set as Ecoli Urine culture positive Ecoli Currently on Ceftriaxone, convert to levaquin 750 mg PO daily WBC increasing 18.4 Cultures pending sensitivities Continue to follow Most likely discharge in the am (3) Pyelonephritis: Code(s): N12 - Tubulo-interstitial nephritis, not specified as acute or chronic Status: Acute Assessment and Plan: CT indicated pyelonephritis bilaterally with cystitis IV ceftriaxone was converted to Bactrim Continue trend labs and vital signs White blood cell count to 18.4 today Awaiting current sensitivities. (4) Lesion of pancreas: Code(s): K86.9 - Disease of pancreas, unspecified Status: Acute Assessment and Plan: CT of the abdomen pelvis 2.5 cm hyperenhancing pancreatic head lesion MRCP with and without contrast normal pancreas Stable at this time (5) Morbid obesity: Code(s): E66.01 - Morbid (severe) obesity due to excess calories Status: Acute Assessment and Plan: Lifestyle changes Calorie restriction (6) Continuous tobacco abuse: Code(s): Z72.0 - Tobacco use Status: Acute Assessment and Plan: Nicotine patch in place Encouraged smoking cessation (7) Intravenous drug abuse in remission: Code(s): F19.11 - Other psychoactive substance abuse, in remission Status: Acute Assessment and Plan: Patient requesting Suboxone only twice daily instead of 3 times a day while hospitalized States that taking Suboxone too late in the day will cause her not to be able to sleep. Request dosing 8:00 a.m. and 8:00 p.m. so this was ordered. Patient aware that additional narcotic pain medication may not be effective due to taking Suboxone. Plan Patient is complaining of a migraine. Migraine cocktail given patient did state that she was relieved of her migraine at this time. DS: Summary Hospital Course Hospital Course: Patient is adamant female with a past medical history IV drug abuse, depression, CP, morbid obesity presented to the ED super pubic pain and bilateral flank pain for a week. Upon arrival white blood cell count was 12.6 did reach 18.4. IV fluids were given in the ED blood cultures did test positive for E coli 1 set. Urine culture was also positive for E coli. Patient was initiated on ceftriaxone to been converted to Levaquin. Levaquin had been changed to p.o. Bactrim. CT was performed did show pyelonephritis bilaterally with cystitis. White blood cell count trended down and is currently 12. CT of the abdomen pelvis also showed pancreatic head lesion however MRCP did rule at home. Patient was giving cessation education about nicotine. Patient also did complain of a migraine which was treated a migraine cocktail. Currently patient is doing better she denies any current chest pain, shortness a breath, nausea, vomiting, diarrhea constipation. Patient this time is stable for discharge
[2023-11-25] MEDS: SULFAMETHOXAZOLE/TRIMETHOPRIM 800/160 MG DS TABLET 1 TAB PO (08:46)
[2023-11-25] MEDS: FAMOTIDINE 20 MG TABLET PO (08:46)
[2023-11-25] MEDS: BUPRENORPHINE/NALOXONE (*CRX) 4 MG/1 MG SL FILM 2 EACH SUBLINGUAL (08:48)
[2023-11-25] MEDS: NICOTINE (*PBKC) 21 MG PATCH 1 PATCH TRANSDERM (08:48)
[2023-12-13 10:13] LABS: Estimated CRCL calculation 104 ml/min; Estimated Glomerular Filt Rate > 60
== END 2023-11-25 11:26 | disposition home or self-care (01) | DRG 720 ==
LOC: ANHED 21:58 → ANH2MED 11-23 01:20
PROVIDERS: Emergency Medicine; Nurse Practitioner; Admitting Provider Internal Medicine; Emergency Provider Physician Assistant; Visit Provider Nurse Practitioner
DX: A41.51 Sepsis due to Escherichia coli [E. coli] (principal); N12 Tubulo-interstitial nephritis, not specified as acute or chronic; K86.9 Disease of pancreas, unspecified; E86.0 Dehydration; E66.01 Morbid (severe) obesity due to excess calories; F41.9 Anxiety disorder, unspecified; F32.A Depression, unspecified; F15.11 Other stimulant abuse, in remission; F17.210 Nicotine dependence, cigarettes, uncomplicated; Z68.41 Body mass index [BMI] 40.0-44.9, adult; Z86.19 Personal history of other infectious and parasitic diseases; G43.909 Migraine, unspecified, not intractable, without status migrainosus
CPT/HCPCS: 36415; 74177; 74183; 76376; 80053; 81001; 81025; 82565; 83605; 83690; 83735; 84443; 84703; 85025; 87040; 87077; 87086; 87088; 87186; 96361; 96365; 96372; 96374; 96375; 96376; 99285; A9270; A9577; G0378; G0379; J0696; J1200; J1885; J2270; J2405; J2550; J2765; J3030; J7030; Q9967

== ENCOUNTER 2024-01-04 15:14 | Emergency (ER) | payer OTHER, SELFPAY ==
[2024-01-04 15:35] LABS: EDUAAPPEAR Clear; EDUABILI 1+; EDUABLOOD Negative; EDUACOLOR1 Amber; EDUAGLUCOSE Negative; EDUAKETONE Negative; EDUALEUKO 1+; EDUANITRATE Negative; EDUAPH 5.5; EDUAPROTEIN Negative; EDUAUROBILI 0.2
--- NOTE | 2024-01-04 15:47 | ED.URI ---
HPI - URI/Sore Throat General Chief Complaint: Urogenital-Female Stated Complaint: urinary issue,Covid exposure, achey Time Seen by Provider: 01/04/24 15:48 Source: patient Mode of arrival: ambulatory Limitations: no limitations History of Present Illness HPI Narrative: 33-year-old female presents with complaint of urinary frequency, urgency, dysuria, suprapubic pain and pain to left side of back for the past 3-4 days. Also reports some vaginal discharge. Reports pain with intercourse. Also wants COVID test due to recent exposure. No URI symptoms. All systems reviewed and negative except as noted above. Related Data Home Medications Medication Instructions Recorded Confirmed buprenorphine 8 mg-naloxone 2 mg 1 film buccal TID 11/22/23 11/23/23 sublingual film (Suboxone) quetiapine 50 mg tablet 50 mg PO HS 11/22/23 11/23/23 Allergies Allergy/AdvReac Type Severity Reaction Status Date / Time amoxicillin [From Augmentin] Allergy Mild Hypertensio Verified 01/04/24 15:17 n clavulanic acid Allergy Mild Hypertensio Verified 01/04/24 15:17 [From Augmentin] n Review of Systems Review of Systems: CONSTITUTIONAL: Denies fever, chills, or sweats. EYES: Denies visual changes, redness, or discharge. ENT: Denies rhinorrhea, congestion, sore throat, or otalgia. CARDIOVASCULAR: Denies chest pain, palpitations, or edema. RESPIRATORY: Denies cough or dyspnea. GASTROINTESTINAL: Denies abdominal pain, nausea, vomiting, or diarrhea. GENITOURINARY: Reports dysuria, frequency, urgency. Denies hematuria. SKIN: Denies rash or itching. MUSCULOSKELETAL: Denies back pain, joint pain, or myalgia. NEUROLOGIC: Denies headache, numbness, or weakness. PSYCHIATRIC: Denies anxiety or depression. All other systems reviewed are negative, except as documented in HPI. [facility] Past Medical History Medical History (Updated 01/04/24 @ 15:56 by Jennyfer So NP) Anxiety and depression Cervical dysplasia Hepatitis C HPV (human papilloma virus) anogenital infection Intravenous drug abuse in remission Patient used IV methamphetamines, heroin, fentanyl, prescription narcotics and smoked methamphetamines in the past. She entered rehab in October of 2022. Irritable bowel syndrome Morbid obesity Schizophrenia ?? Surgical History Surgical History (Updated 11/23/23 @ 03:42 by Nadine Gutiérrez DO) History of tonsillectomy and adenoidectomy Family History Family History (Updated 11/23/23 @ 03:54 by Nadine Gutiérrez DO) Grandparent Pancreatic cancer Social History Social History (Updated 11/23/23 @ 03:49 by Nadine Gutiérrez DO) Social History: Patient lives at home with her 10-year-old son and her grandmother and grandfather. She was raised by her grandparents after her father overdosed and her mother committed suicide. Her son is 10 years old (as of November 2023). She has smoked 1-2 packs cigarettes per day since she was in her early teens. She does drink alcohol on occasion. She has a long history of polysubstance abuse. She started smoking and injecting meth at 21 and then in her mid 20s transition to combination of meth and fentanyl. She still smokes marijuana somewhat regularly. Code status: Full code Surrogate decision maker: Joseph Mathis Smoking packs per day: 2 Smoking cigarettes per day: 40.0 Years smoked: 15 Smoking pack-years: 30.00 Smoking status: Current every day smoker Tobacco type: cigarettes Alcohol intake: current Substance use: current Substance use type: marijuana, heroin, opiates, IV drugs and methamphetamine Other substance usage details: Patient has used a combination of meth, fentanyl/opiates in various forms Last use: October 2022 Do You Feel Safe in your Home?: Yes Lack of Transportation: No Lack of Food: Sometimes True Current Housing: I Have Housing Concerned About Future Housing: No Difficulty Paying Gas/Electric Bills: No Difficulty Paying for
[2024-01-04 20:48] LABS: Trichomonas Vag PCR DETECTED (NOT DETECTE)
[2024-01-04 21:25] LABS: Chlamydia trachomatis NOT DETECTED (NOT DETECTE); Neisseria gonorrhoeae PCR NOT DETECTED (NOT DETECTE)
== END 2024-01-04 16:00 | disposition home or self-care (01) ==
PROVIDERS: Emergency Provider Nurse Practitioner Family
DX: N39.0 Urinary tract infection, site not specified (principal); A59.9 Trichomoniasis, unspecified; F17.210 Nicotine dependence, cigarettes, uncomplicated; Z20.822 Contact with and (suspected) exposure to COVID-19
CPT/HCPCS: 81003; 87086; 87088; 87426; 87491; 87591; 87661; 99214; G0463

== ENCOUNTER 2024-05-13 17:10 | Emergency (ER) | payer SELFPAY ==
[2024-05-13 17:24] VITALS: BP 135/74; PULSE 99; RESP 18; TEMP 37.1; O2SAT 97
--- NOTE | 2024-05-13 17:50 | ED.URI ---
HPI - URI/Sore Throat General Chief Complaint: Upper Respiratory Infection Stated Complaint: Sinus Time Seen by Provider: 05/13/24 17:31 Source: patient and RN notes reviewed Mode of arrival: ambulatory Limitations: no limitations History of Present Illness HPI Narrative: Patient presents today complaining of 4 day history of productive cough, headache, nausea, fever of 99 max. She does report some shortness of breath, but states she does have some at baseline due to obesity and smoking and it is no worse than normal. She has been taking Zofran for her nausea and Tylenol with some relief. Son sick with similar symptoms. Related Data Home Medications Medication Instructions Recorded Confirmed buprenorphine 8 mg-naloxone 2 mg 1 film buccal TID 11/22/23 05/13/24 sublingual film (Suboxone) quetiapine 50 mg tablet 50 mg PO HS 11/22/23 05/13/24 Allergies Allergy/AdvReac Type Severity Reaction Status Date / Time amoxicillin [From Augmentin] Allergy Mild Hypertensio Verified 05/13/24 17:11 n clavulanic acid Allergy Mild Hypertensio Verified 05/13/24 17:11 [From Augmentin] n Review of Systems Review of Systems: CONSTITUTIONAL: Denies body aches, chills, or sweats.+ fever EYES: Denies visual changes, redness, or discharge. ENT: Denies rhinorrhea, congestion, sore throat, or otalgia. CARDIOVASCULAR: Denies chest pain, palpitations, or edema. RESPIRATORY: +, shortness of breath GASTROINTESTINAL: Denies abdominal pain, vomiting, or diarrhea.+ nausea GENITOURINARY: Denies dysuria or hematuria. SKIN: Denies rash, itching, or wounds. MUSCULOSKELETAL: Denies back pain, joint pain, or myalgia. NEUROLOGIC: Denies numbness, tingling, or weakness.+ headache PSYCH: Denies depression or anxiety. [facility] Past Medical History Medical History (Reviewed 05/13/24 @ 17:52 by Vanessa Dowell, [facility], ) Anxiety and depression Cervical dysplasia Hepatitis C HPV (human papilloma virus) anogenital infection Intravenous drug abuse in remission Patient used IV methamphetamines, heroin, fentanyl, prescription narcotics and smoked methamphetamines in the past. She entered rehab in October of 2022. Irritable bowel syndrome Morbid obesity Schizophrenia ?? Surgical History Surgical History (Reviewed 05/13/24 @ 17:52 by Vanessa Dowell, [facility], ) History of tonsillectomy and adenoidectomy Family History Family History (Reviewed 05/13/24 @ 17:52 by Vanessa Dowell, [facility], ) Grandparent Pancreatic cancer Social History Social History (Reviewed 05/13/24 @ 17:52 by Vanessa Dowell, [facility], ) Social History: Patient lives at home with her 10-year-old son and her grandmother and grandfather. She was raised by her grandparents after her father overdosed and her mother committed suicide. Her son is 10 years old (as of November 2023). She has smoked 1-2 packs cigarettes per day since she was in her early teens. She does drink alcohol on occasion. She has a long history of polysubstance abuse. She started smoking and injecting meth at 21 and then in her mid 20s transition to combination of meth and fentanyl. She still smokes marijuana somewhat regularly. Code status: Full code Surrogate decision maker: Joseph Mathis Smoking packs per day: 2 Smoking cigarettes per day: 40.0 Years smoked: 15 Smoking pack-years: 30.00 Smoking status: Current every day smoker Tobacco type: cigarettes Alcohol intake: current Substance use: current Substance use type: marijuana, heroin, opiates, IV drugs and methamphetamine Other substance usage details: Patient has used a combination of meth, fentanyl/opiates in various forms Last use: October 2022 Do You Feel Safe in your Home?: Yes Lack of Transportation: No Lack of Food: Sometimes True Current Housing: I Have Housing Concerned About Future Housing: No Difficulty Paying Gas/Electric Bills: No Difficulty Paying for Meds: No Currently Unemployed: No Education: High School Diploma/GED Difficulty w/ Childcare or Family Care: No Occupation/Education: occupation Additional occupation/education comments: She works in a [employer] Spiritual care concerns: No Comments At time of signature, I have reviewed and agree with nursing past medical, surgical, social and family history unless otherwise noted. Please see nursing chart for further information. There is no relevant family history pertinent to the presenting complaint Exam Narrative: GENERAL: Mildly ill-appearing, well-nourished, and in no acute distress. HEAD: Normocephalic, atraumatic. EYES: EOMI. No redness or drainage. Conjunctivae normal. ENT: Mucous membranes pink and moist. Nares congested with rhinorrhea. TMs normal bilaterally. Throat normal. Uvula midline. NECK: Normal AROM. Supple. No lymphadenopathy. CHEST: No respiratory distress. Clear to auscultation. HEART: Regular rate and rhythm. No murmur appreciated. EXTREMITIES: Normal range of motion. No edema. SKIN: Warm, dry, no rash. Capillary refill normal. Normal skin turgor. NEURO: No focal deficits. Alert and oriented x3. Gait steady. PSYCH: Normal affect. No signs of depression or anxiety. Course Course Level of Care: Express Care Visit Vital Signs Vital signs: Vital Signs Temperature 98.7 F 05/13/24 17:24 Pulse Rate 99 05/13/24 17:24 Respiratory Rate 18 05/13/24 17:24 Blood Pressure 135/74 05/13/24 17:24 Pulse Oximetry 97 05/13/24 17:24 Oxygen Delivery Room Air 05/13/24 17:24 Temperature 98.7 F 05/13/24 17:24 Pulse Rate 99 05/13/24 17:24 Respiratory Rate 18 05/13/24 17:24 Blood Pressure 135/74 05/13/24 17:24 Pulse Oximetry 97 05/13/24 17:24 Oxygen Delivery Room Air 05/13/24 17:24 Reviewed MDM - URI/Sore Throat MDM Narrative Medical decision making narrative: COVID and influenza negative. Symptoms likely viral in etiology. Discussed [id number] medication use and duration of illness. Patient would like some additional Zofran for her intermittent nausea. Prescription sent to pharmacy.. Anticipatory guidance given. ED precautions given. Differential Diagnosis Differential diagnosis: Likely upper respiratory infection, sinusitis, viral infection, bronchitis, influenza and other (COVID) Lab Data Attestation: I reviewed the patient's lab results. Labs: Lab Results 05/13/24 Range/Units 17:54 POC Influenza A Ag Negative (Negative) POC Influenza B Ag Negative (Negative) POC SARS CoV-2 Ag Negative (Negative) Critical Care Time Critical Care Time Critical Care Time: No Discharge Plan Discharge Clinical Impression: Upper respiratory infection Qualifiers: URI type: unspecified URI Qualified Code(s): J06.9 - Acute upper respiratory infection, unspecified Patient Disposition: Home, Self-Care Condition: Stable Instructions: Upper Respiratory Infection (DC) Additional Instructions: Your COVID and influenza swabs are both negative today. Your Symptoms are likely due to a viral illness, which is not treated with antibiotics. Virus symptoms can last for up to 7-14 days. Take Tylenol or ibuprofen for pain or fever. Continue [id number] medication as needed. Take Zofran for nausea. Rest and stay hydrated. Follow up with your PCP in 7 days if symptoms are not improving. Go to the ER immediately if you develop shortness of breath, difficulty swallowing, or any other concerning symptoms. Your blood pressure was elevated above 120/80 today at Urgent Care. This puts you above the threshold for follow up. Please schedule a followup visit with your personal physician as soon as possible, for further evaluation and treatment. Even blood pressure exceeding 120/80 may indicate pre-hypertension. Prescriptions: New ondansetron 4 mg tablet,disintegrating 4 mg PO TID PRN (Reason: nausea and vomiting) Qty: 15 0RF No Action quetiapine 50 mg tablet 50 mg PO HS buprenorphine-naloxone [Suboxone] 8-2 mg Film 1 film BUCCAL TID Follow-up/Referrals: PHYSICIAN,[employer] [Primary Care Provider] - Time of Disposition: 18:04
[2024-05-13 17:56] LABS: EDCOVIDSCREEN Negative (Negative); EDINFLUASCREEN Negative (Negative); EDINFLUBSCREEN Negative (Negative)
== END 2024-05-13 18:10 | disposition home or self-care (01) ==
PROVIDERS: Emergency Provider Nurse Practitioner
DX: J06.9 Acute upper respiratory infection, unspecified (principal); Z20.822 Contact with and (suspected) exposure to COVID-19; F17.210 Nicotine dependence, cigarettes, uncomplicated; F32.A Depression, unspecified; E66.01 Morbid (severe) obesity due to excess calories; Z68.42 Body mass index [BMI] 45.0-49.9, adult; F12.90 Cannabis use, unspecified, uncomplicated
CPT/HCPCS: 87426; 87804; 99213; G0463

== ENCOUNTER 2024-08-09 11:12 | Emergency (ER) | payer SELFPAY ==
[2024-08-09 11:21] VITALS: BP 104/53; PULSE 81; RESP 15; TEMP 36.8; O2SAT 100
[2024-08-09 11:38] LABS: EDCOVIDSCREEN Negative (Negative); EDINFLUASCREEN Negative (Negative); EDINFLUBSCREEN Negative (Negative)
--- NOTE | 2024-08-09 11:48 | ED.URI ---
HPI - URI/Sore Throat General Chief Complaint: Upper Respiratory Infection Stated Complaint: SOB Time Seen by Provider: 08/09/24 11:15 Source: patient Mode of arrival: ambulatory Limitations: no limitations History of Present Illness HPI Narrative: Patient is a 33-year-old female who presents with 10 days of congestion and cough. Patient states over the last 2 days cough has become more productive and has feelings of shortness of breath when having coughing fits. Patient reports cough is worse at night. Patient states last night was the worst it has been with wheezing and inability to take a deep breath. Patient states she is also smoking 1 pack per day. Has tried [id number] medication with no relief. Denies any fever, chills, nausea, vomiting, diarrhea. Related Data Home Medications ?Medication ?Instructions ?Recorded ?Confirmed ?Last Taken ?Type buprenorphine 8 mg-naloxone 2 mg 1 film buccal TID 11/22/23 05/13/24 Unknown History sublingual film (Suboxone) quetiapine 50 mg tablet 50 mg PO HS 11/22/23 05/13/24 Unknown History Allergies Allergy/AdvReac Type Severity Reaction Status Date / Time amoxicillin (From Augmentin) Allergy Mild Hypertensio Verified 08/09/24 11:14 n clavulanic acid (From Allergy Mild Hypertensio Verified 08/09/24 11:14 Augmentin) n Review of Systems Review of Systems: All systems reviewed & are unremarkable except as noted in HPI and below Constitutional: Constitutional: Denies chills, Denies fatigue, Denies fever(s), Denies headache(s), Denies malaise and Denies weakness Eyes: Eyes: Denies blurry vision, Denies itchy eyes and Denies loss of vision ENT: Denies otalgia, Denies headache(s), Reports nasal congestion, Denies sinus pain and Denies sore throat Cardiovascular: Cardiovascular: Denies chest pain, Denies irregular heart rhythm and Denies dyspnea Respiratory: Respiratory: Reports chest congestion, Reports cough, Denies dyspnea and Reports wheezing Gastrointestinal: Gastrointestinal: Denies abdominal pain, Denies diarrhea, Denies nausea and Denies vomiting Musculoskeletal: Musculoskeletal: Denies back pain, Denies myalgias and Denies arthralgias Integumentary/Breasts: Skin/Breast: Denies pruritus and Denies rash Neurologic: Denies headache(s), Denies loss of vision and Denies weakness Psychiatric: Psychiatric: Reports no additional psychiatric complaints Endocrine: Endocrine: Denies fatigue Allergic/Immunologic: Allergic/Immunologic: Denies itchy eyes PMFSH Past Medical History Medical History Schizophrenia ?? Irritable bowel syndrome HPV (human papilloma virus) anogenital infection Cervical dysplasia Hepatitis C Intravenous drug abuse in remission Patient used IV methamphetamines, heroin, fentanyl, prescription narcotics and smoked methamphetamines in the past. She entered rehab in October of 2022. Morbid obesity Anxiety and depression Surgical History Surgical History History of tonsillectomy and adenoidectomy Family History Family History Grandparent Pancreatic cancer Social History Social History Social History: Patient lives at home with her 10-year-old son and her grandmother and grandfather. She was raised by her grandparents after her father overdosed and her mother committed suicide. Her son is 10 years old (as of November 2023). She has smoked 1-2 packs cigarettes per day since she was in her early teens. She does drink alcohol on occasion. She has a long history of polysubstance abuse. She started smoking and injecting meth at 21 and then in her mid 20s transition to combination of meth and fentanyl. She still smokes marijuana somewhat regularly. Code status: Full code Surrogate decision maker: Joseph Briceñosonali Smoking packs per day: 2 Smoking cigarettes per day: 40.0 Years smoked: 15 Smoking pack-years: 30.00 Smoking status: Current every day smoker Tobacco type: cigarettes Alcohol intake: current Substance use: current Substance use type: marijuana, heroin, opiates, IV drugs and methamphetamine Other substance usage details: Patient has used a combination of meth, fentanyl/opiates in various forms Last use: October 2022 Do You Feel Safe in your Home?: Yes Lack of Transportation: No Lack of Food: Sometimes True Current Housing: I Have Housing Concerned About Future Housing: No Difficulty Paying Gas/Electric Bills: No Difficulty Paying for Meds: No Currently Unemployed: No Education: High School Diploma/GED Difficulty w/ Childcare or Family Care: No Occupation/Education: occupation Additional occupation/education 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 There is no relevant family history pertinent to the presenting complaint. Exam Const: General: cooperative, healthy appearing, comfortable, no acute distress and well nourished Nutritional Appearance: well nourished Orientation/consciousness: patient oriented x3 Limitations: no limitations HENMT: Head: normal to inspection, normocephalic and atraumatic Ears: hearing grossly normal bilaterally, external ears normal, TM's normal bilaterally, EAC's normal and no periauricular adenopathy Face/Nose/Sinus: Normal external nose present, Abnormal mucous membranes and turbinates present erythematous bilateral and diffuse, normal facial exam, sinuses nontender and face symmetric Face and sinus: normal facial exam, sinuses nontender and face symmetric Mouth: Yes Normal oral and palatal mucosa present, Yes lip normal, Yes tongue normal, Yes Normal salivary glands and ducts present, Yes oropharynx normal and Yes moist mucous membranes Teeth and gingiva: dentition normal Throat: posterior oropharynx normal, tonsils normal and uvula midline Eyes: General: appearance normal, both eyes and all related structures Alignment and Position: alignment normal and position normal Periorbital: periorbital findings normal Eyelids: eyelids normal Pupils: Equal, round and reactive pupils present Neck: Neck: normal visual inspection, full ROM, no lymphadenopathy and supple Chest: Chest palpation & inspection: normal inspection of the chest and normal palpation of entire chest wall Resp: Effort & Inspection: normal respiratory effort and able to speak in complete sentences Auscultation: no crackles, no rales, rhonchi upper bilaterally (clears with cough) and wheezes scattered wheezes Cardio: Rate: regular rate Rhythm: regular rhythm Heart sounds: S1 normal heart sound present and S2 normal heart sound present GI: Inspection: normal to inspection Skin: General skin exam: normal color and no rashes or lesions noted Neuro: General: patient oriented x3 and moves all extremities Cranial nerves: Yes Equal, round and reactive pupils present Speech: normal speech Gait exam (Neuro): Normal gait present Extrem: General: normal to inspection, full ROM and no edema Psych: Appearance: grossly normal and well kempt Mental Status: mental status grossly normal Speech and movement: Normal speech and movement present Affect: normal affect Attitude: cooperative Thought process: Normal thought process present Course Course Emergency Course: Discharge instructions reviewed with patient, as well as provided in writing per nursing staff. The instructions also include specific and strict return/GO TO THE ER as well as f/u information. All questions have been answered, and the patient deny any further questions with discharge and discharge plan. Portions of this record may have been created with voice recognition software Level of Care: Express Care Visit Vital Signs Vital signs: Vital Signs Temperature 36.8 C 08/09/24 11:21 Pulse Rate 81 08/09/24 11:21 Respiratory Rate 15 08/09/24 11:21 Blood Pressure 104/53 L 08/09/24 11:21 Pulse Oximetry 100 08/09/24 11:21 Oxygen Delivery Room Air 08/09/24 11:21 Temperature 36.8 C 08/09/24 11:21 Pulse Rate 81 08/09/24 11:21 Respiratory Rate 15 08/09/24 11:21 Blood Pressure 104/53 L 08/09/24 11:21 Pulse Oximetry 100 08/09/24 11:21 Oxygen Delivery Room Air 08/09/24 11:21 Reviewed MDM - URI/Sore Throat MDM Narrative Medical decision making narrative: Pt well hydrated appearing, in no respiratory distress, hemodynamically stable. Recommend supportive care. The patient is stable at time of discharge the clinical impression was discussed and the patient was given the opportunity to ask questions, which were addressed as completely as possible given the information available at present. Anticipatory guidance and return to care precautions were discussed and the importance of primary care follow-up was stressed and encouraged. The patient voiced understanding of the plan, indications to return, and the need for follow-up. Differential diagnosis considered: Bronchitis, Infante virus, strep pharyngitis, allergic rhinitis, upper respiratory tract infection, sinusitis, rhinosinusitis, nasopharyngitis. viral pharyngitis, otitis media, otitis externa, otitis effusion, foreign body, cerumen impaction, viral syndrome, and influenza.? Exam findings show no acute concerns or changes; patient is non-toxic appearing and is in no distress.? Patient is appropriate for outpatient treatment and follow-up.? Medical Records Attestation: I reviewed the patient's medical records. Lab Data Attestation: I reviewed the patient's lab results. Labs: Lab Results 08/09/24 Range/Units 11:36 POC Influenza A Ag Negative (Negative) POC Influenza B Ag Negative (Negative) POC SARS CoV-2 Ag Negative (Negative) Discharge Plan Discharge Clinical Impression: Acute purulent bronchitis Patient Disposition: Home, Self-Care Condition: Stable Instructions: Acute Bronchitis (ED) Additional Instructions: Take antibiotic as prescribed. Take steroids in the morning with food. Use Tessalon Perles as needed for cough. Use inhaler with spacer as needed. Other symptomatic treatments include: -Alternate Tylenol and Motrin per package directions for fever or pain: Tylenol 650-1000mg by mouth every 4-6 hours. Do not exceed 4000mg in 24 hours. Advil (Ibuprofen) 600 mg by mouth every 6 hours. Do not exceed 2400mg in 24 hours. 8 AM: Tylenol 11 AM: Ibuprofen 2 PM: Tylenol 5 PM: Ibuprofen 8 PM: Tylenol 11 PM: Ibuprofen 2 AM: Tylenol 5 AM: Ibuprofen -Antihistamine medication such as Benadryl at night and Zyrtec/Claritin/Nola during the day can help improve symptoms. -Use Flonase twice a day for 5 days then daily to help reduce the inflammation and dry up your sinuses. -You can also use Sudafed or Mucinex. Be sure to drink plenty of water with these medications at least 8 ounces with every dose and it is important to drink 8 to 10 glasses of water per day. Water is a natural decongestant -Eat and drink things that are easy to swallow, like tea or soup, or popsicles. -Oral rinses such as: Salt water gargles and/or may use topical anesthetic (eg. Chloraseptic spray) or lozenges to relieve dryness or throat pain). -Frequent hand washing or hand airline transport pilot is one of the best ways to prevent spread of infection. -Using a vaporizer or humidifier at night will also help thin secretions and help with coughing up phlegm. Call your Primary Care Doctor and make a follow-up appointment in 3 days. If your cough worsens, you develop a fever greater than 103, you develop shaking chills, a fast heartbeat, trouble breathing and/or feel you are are breathing much faster than usual, call your Primary Care Doctor or go to the ER. Patient Language: Kosovan Prescriptions: New prednisone 20 mg tablet 40 mg PO DAILY 5 Days Qty: 10 0RF amoxicillin 875 mg tablet 875 mg PO Q12H 7 Days Qty: 14 0RF benzonatate 100 mg capsule 100 mg PO BID PRN (Reason: cough) Qty: 14 0RF albuterol sulfate 90 mcg/actuation HFA aerosol inhaler 2 puff inhalation QID PRN (Reason: shortness of breath or wheezing) Qty: 6.7 0RF (DME) Aerochamber MV Spacer See Rx Instructions .Route Qty: 1 0RF Rx Instructions: As directed No Action quetiapine 50 mg tablet 50 mg PO HS buprenorphine-naloxone [Suboxone] 8-2 mg Film 1 film BUCCAL TID ondansetron 4 mg tablet,disintegrating 4 mg PO TID PRN (Reason: nausea and vomiting) Qty: 15 0RF Follow-up/Referrals: PHYSICIAN,ELECTROLYTIC DE SCALER [Primary Care Provider] - Duy Hall MD [Physician] - 3 Days Stand Alone Forms: Work/School Release IP Time of Disposition: 11:50
== END 2024-08-09 11:59 | disposition home or self-care (01) ==
PROVIDERS: Emergency Provider Nurse Practitioner Family
DX: J20.9 Acute bronchitis, unspecified (principal); Z20.822 Contact with and (suspected) exposure to COVID-19; F17.210 Nicotine dependence, cigarettes, uncomplicated; E66.01 Morbid (severe) obesity due to excess calories; Z68.42 Body mass index [BMI] 45.0-49.9, adult
CPT/HCPCS: 87426; 87804; 99213; G0463

== ENCOUNTER 2024-09-19 13:49 | Emergency (ER) | payer SELFPAY ==
[2024-09-19 13:56] VITALS: BP 137/63; PULSE 80; RESP 19; TEMP 36.7; O2SAT 98
--- NOTE | 2024-09-19 14:36 | ED_ITS ---
HPI - Abdominal Pain General Chief Complaint: Dental/Oral Stated Complaint: Back Pain/Abdominal Pain Time Seen by Provider: 09/19/24 14:18 Source: patient and RN notes reviewed History of Present Illness HPI narrative: Patient presents today complaining of a 4 to five-day history of bilateral low back pain, nausea, and bilateral lower abdominal pain. Pain has been constant. Denies injury or trauma to the back. Denies lifting. Denies radiation of the back pain. Denies loss of bowel or bladder control, numbness or tingling in the extremities or genitalia. Denies vomiting or fever, urinary frequency, dysuria, hematuria.. She currently rates her pain 4/10. She has tried Tylenol with some mild relief. Related Data Home Medications ?Medication ?Instructions ?Recorded ?Confirmed ?Last Taken ?Type buprenorphine 8 mg-naloxone 2 mg 1 film buccal TID 11/22/23 05/13/24 Unknown History sublingual film (Suboxone) quetiapine 50 mg tablet 50 mg PO HS 11/22/23 05/13/24 Unknown History Allergies Allergy/AdvReac Type Severity Reaction Status Date / Time amoxicillin (From Augmentin) Allergy Mild Hypertensio Verified 09/19/24 13:51 n clavulanic acid (From Allergy Mild Hypertensio Verified 09/19/24 13:51 Augmentin) n Review of Systems Review of Systems: CONSTITUTIONAL: Denies body aches, fever, chills, or sweats. EYES: Denies visual changes, redness, or discharge. ENT: Denies rhinorrhea, congestion, sore throat, or otalgia. CARDIOVASCULAR: Denies chest pain, palpitations, or edema. RESPIRATORY: Denies cough or dyspnea. GASTROINTESTINAL: Abdominal pain, nausea GENITOURINARY: Denies dysuria or hematuria. SKIN: Denies rash, itching, or wounds. MUSCULOSKELETAL: Denies joint pain, or myalgia.+ low back pain NEUROLOGIC: Denies headache, numbness, tingling, or weakness. PSYCH: Denies depression or anxiety. [facility]LY [facility], [facility] Past Medical History Medical History Schizophrenia ?? Irritable bowel syndrome HPV (human papilloma virus) anogenital infection Cervical dysplasia Hepatitis C Intravenous drug abuse in remission Patient used IV methamphetamines, heroin, fentanyl, prescription narcotics and smoked methamphetamines in the past. She entered rehab in October of 2022. Morbid obesity Anxiety and depression Surgical History Surgical History History of tonsillectomy and adenoidectomy Family History Family History Grandparent Pancreatic cancer Social History Social History Social History: Patient lives at home with her 10-year-old son and her grandmother and grandfather. She was raised by her grandparents after her father overdosed and her mother committed suicide. Her son is 10 years old (as of November 2023). She has smoked 1-2 packs cigarettes per day since she was in her early teens. She does drink alcohol on occasion. She has a long history of polysubstance abuse. She started smoking and injecting meth at 21 and then in her mid 20s transition to combination of meth and fentanyl. She still smokes marijuana somewhat regularly. Code status: Full code Surrogate decision maker: Joseph Mathis Smoking packs per day: 2 Smoking cigarettes per day: 40.0 Years smoked: 15 Smoking pack-years: 30.00 Smoking status: Current every day smoker Tobacco type: cigarettes Alcohol intake: current Substance use: current Substance use type: marijuana, heroin, opiates, IV drugs and methamphetamine Other substance usage details: Patient has used a combination of meth, fentanyl/opiates in various forms Last use: October 2022 Do You Feel Safe in your Home?: Yes Lack of Transportation: No Lack of Food: Sometimes True Current Housing: I Have Housing Concerned About Future Housing: No Difficulty Paying Gas/Electric Bills: No Difficulty Paying for Meds: No Currently Unemployed: No Education: High School Diploma/GED Difficulty w/ Childcare or Family Care: No Occupation/Education: occupation Additional occupation/education comments: She works in a [employer] Spiritual care concerns: No Comments At time of signature, I have reviewed and agree with nursing past medical, surgical, social and family history unless otherwise noted. Please see nursing chart for further information. There is no relevant family history pertinent to the presenting complaint Exam Narrative: GENERAL: Well-appearing, well-nourished, and in no acute distress. HEAD: Normocephalic, atraumatic. EYES: EOMI. No redness or drainage. Conjunctivae normal. ENT: Mucous membranes pink and moist. NECK: Normal AROM. CHEST: No respiratory distress. Clear to auscultation. HEART: Regular rate and rhythm. No murmur appreciated. Normal peripheral pulses. ABDOMEN: Soft, nondistended, normal active bowel sounds.+ tenderness to the right lower quadrant without rebound or guarding MUSCULOSKELETAL: No bony tenderness of the spine. Mild tenderness in bilateral lower lumbar paraspinal muscle tenderness. Distal sensation intact. Saddle sensation intact. Capillary refill normal. 5/5 strength in BLE EXTREMITIES: Normal range of motion. No edema. SKIN: Warm, dry, no rash. Capillary refill normal. Normal skin turgor. NEURO: No focal deficits. Alert and oriented x3. Gait steady. PSYCH: Normal affect. No signs of depression or anxiety. Course Course Level of Care: Express Care Visit Vital Signs Vital signs: Vital Signs Temperature 98.1 F 09/19/24 13:56 Pulse Rate 80 09/19/24 13:56 Respiratory Rate 19 09/19/24 13:56 Blood Pressure 137/63 09/19/24 13:56 Pulse Oximetry 98 09/19/24 13:56 Oxygen Delivery Room Air 09/19/24 13:56 Temperature 98.1 F 09/19/24 13:56 Pulse Rate 80 09/19/24 13:56 Respiratory Rate 19 09/19/24 13:56 Blood Pressure 137/63 09/19/24 13:56 Pulse Oximetry 98 09/19/24 13:56 Oxygen Delivery Room Air 09/19/24 13:56 Reviewed Transfer Transfered to: [facility] Transportation: Other (Private vehicle) Transfer rationale: Abdominal pain, back pain Accepting physician: Glen KAPADIA - Abdominal Pain MDM Narrative Medical decision making narrative: Urinalysis is not consistent with infection. Patient will be transferred to the ER for further evaluation of her abdominal pain. Differential Diagnosis Differential diagnosis: Likely abdominal pain, acute appendicitis, diverticulitis and other (UTI, ovarian cyst, ovarian torsion) Lab Data Attestation: I reviewed the patient's lab results. Labs: Lab Results 09/19/24 Range/Units 14:05 POC Urine Color [place] POC Urine Clarity Cloudy POC Urine pH 5.5 POC Ur Specif [place] 1.030 POC Urine Protein Negative (Negative) POC Ur Glucose (UA) Negative (Negative) POC Urine Ketones Negative (Negative) POC Urine Blood Negative (Negative) POC Urine Nitrite Negative (Negative) POC Urine Bilirubin 1+ (Negative) POC Urine Urobilinogen 1.0 POC U Leukocyte Esteras Negative (Negative) Critical Care Time Critical Care Time Critical Care Time: No Discharge Plan Discharge Clinical Impression: Abdominal right lower quadrant tenderness Qualifiers: Presence of rebound: absent Qualified Code(s): R10.813 - Right lower quadrant abdominal tenderness Low back pain Qualifiers: Chronicity: acute Back pain laterality: bilateral Sciatica presence: without sciatica Qualified Code(s): M54.50 - Low back pain, unspecified Patient Disposition: Acute Care Hospital Condition: Stable Patient Language: Vincentian Prescriptions: No Action (DME) Aerochamber MV Spacer See Rx Instructions .Route Qty: 1 0RF Rx Instructions: As directed quetiapine 50 mg tablet 50 mg PO HS buprenorphine-naloxone [Suboxone] 8-2 mg Film 1 film BUCCAL TID ondansetron 4 mg tablet,disintegrating 4 mg PO TID PRN (Reason: nausea and vomiting) Qty: 15 0RF Follow-up/Referrals: PHYSICIAN,STRAP MAKER [Primary Care Provider] - Time of Disposition: 14:43
[2024-09-19 14:44] LABS: EDUAAPPEAR Cloudy; EDUABILI 1+ (Negative); EDUABLOOD Negative (Negative); EDUACOLOR1 Amber; EDUAGLUCOSE Negative (Negative); EDUAKETONE Negative (Negative); EDUALEUKO Negative (Negative); EDUANITRATE Negative (Negative); EDUAPH 5.5; EDUAPROTEIN Negative (Negative)
== END 2024-09-19 14:35 | disposition short-term general hospital (02) ==
PROVIDERS: Emergency Provider Nurse Practitioner
DX: R10.813 Right lower quadrant abdominal tenderness (principal); M54.50 Low back pain, unspecified; F17.210 Nicotine dependence, cigarettes, uncomplicated; E66.01 Morbid (severe) obesity due to excess calories; Z68.42 Body mass index [BMI] 45.0-49.9, adult
CPT/HCPCS: 81003; 99212; G0463

== ENCOUNTER 2024-09-19 15:34 | Emergency (ER) | payer SELFPAY ==
--- NOTE | ~2024-09-19 | US_ITS ---
EXAM: PELVIC ULTRASOUND HISTORY: L ovarian enlargement, lower abd pain, r/o torsion COMPARISON: . Reference is also made to the CT examination of the abdomen and pelvis performed on the same day, pili roximately 1 hour earlier FINDINGS: UTERUS: 10.1 x 3.4 x 4.1 cm. The uterus is anteverted and retroflexed. The endometrial complex measures 3.9 mm. RIGHT OVARY: The right ovary is unremarkable in echogenicity and size measuring 2.0 x 1.6 x 2.6 cm. Dopplerable flow is identified. LEFT OVARY: The left ovary is increased in size measuring 4.6 x 4.3 x 4.4 cm Dopplerable flow is identified. A single anechoic avascular focus is identified within the left ovary measuring 4.6 x 3.5 x 3.6 cm, r epresenting a cyst. A smaller cystic cavity is identified within the larger cyst. No Doppler interrogation was performed of the smaller cystic cavity confirm the absence of flow. No free fluid is identified within the pelvis. IMPRESSION: Within the left adnexa is a focus of fluid (as described on previous CT examination) within the left ovary. This cystic focus is consistent with a simple cyst measuring 4.6 cm in greatest dimension, which cont ains a smaller cystic cavity. Nonemergent follow-up is recommended to confirm the absence of vascularity within this smaller cystic focus, as detailed above. Typically, no follow-up is needed for cysts less than 5 to 6 cm in size. Reviewed, dictated and finalized at location A. IMPRESSION: Within the left adnexa is a focus of fluid (as described on previous CT examina tion) within the left ovary. This cystic focus is consistent with a simple cyst measuring 4.6 cm in greatest dimension, which contains a smaller cystic cavity. Nonemergent follow-up is recommended to confirm the absence of vascularity with in this smaller cystic focus, as detailed above. Typically, no follow-up is needed for cysts less than 5 to 6 cm in size.
--- NOTE | ~2024-09-19 | CT_ITS ---
CLINICAL INDICATION: Lower abdominal and lower back pain COMPARISON: 11/22/2023. TECHNIQUE: Multiple contiguous axial images of the abdomen, pelvis and lumbar spine were performed fo llowing the administration of with 100 mL Omnipaque-350 intravenous contrast The dose-length product (DLP) was 1675.37 mGy-cm. Automated exposure control and iterative reconstruction technique were employed. FINDINGS/OBSERVATIONS: Visualized lower thorax: The bilateral lung bases are clear. The heart is of normal size, without pericardial effusion. Small hiatal hernia is present. Liver: The liver demonstrates homogeneous enhancement and is enlarged measuring 23 cm in longitudinal dimens ion. Gallbladder and biliary system: The gallbladder is only minimally distended, and otherwise unremarkable. Pancreas: The pancreas enhances homogeneously without ductal dilatation. Spleen: The spleen enhances homogeneously and is enlarged measuring 13 the cm in longitudinal dimension. Kidneys: The bilateral kidneys enhance symmetrically without hydronephrosis or renal calculi. Adrenal glands: Unremarkable. Gastrointestinal tract: Trace fecal stasis within the colon. Appendix: The air-filled appendix is of normal caliber (axial series, images 134 through 137). Vasculature: Unremarkable. Lymph nodes: No pathologically enlarged or morphologically suspicious lymph nodes within the retroperitoneum or at the root of the mesentery. Pelvic structures: The bladder is only minimally distended, and otherwise unremarkable. The uterus is retroverted and retroflexed. Within the left hemipelvis, the left ovary measures 6.2 x 4.5 x 5.3 cm, asymmetrically enlarged when compared to the right, for which nonemergent follow-up ultrasound is suggested. Internally, the left ovary measures fluid attenuation, consistent with a cyst, and is without surrounding inflammatory héctor nge. Body wall and musculoskeletal: Small fat-containing umbilical hernia. No significant degenerative disease within the lower thoracic or lumbosacral spine. Specifically: No acute fracture or significant degenerative disease is identified within the lumbar spine. IMPRESSION: Hepatosplenomegaly. Asymmetric enlargement of the left ovary, likely representing a cyst (rather than ovarian torsion) fo r which ultrasound examination may be performed as nonemergent follow-up. Reviewed, dictated and finalized at location A. IMPRESSION: Hepatosplenomegaly. Asymmetric enlargement of the left ovary, likely representing a cyst (rather th an ovarian torsion) for which ultrasound examination may be performed as noneme rgent follow-up.
[2024-09-19 15:47] VITALS: BP 138/71; PULSE 80; RESP 20; TEMP 36.5; O2SAT 99
--- OUTSIDE RECORDS SUMMARY | 2024-09-19 16:36 | XMS_ITS ---
Author Organization [facility] Address [address] [place] [address] Care Team Providers Care Laser Machine Operator Name Role Phone JimLaure Primary Care Provider [phone] Mar Eason Unavailable [phone] REASON FOR VISIT Housing Resources Social History Sex Assigned At : Social History Observation Description Sex Assigned At Female Encounters Encounter Location Date Provider Diagnosis [address] [address] 08/21/2024 Mar Eason Plan Of Treatment No Information Progress Notes * Vic MATHISOB:1990 (33 yo F)Acc No.[id number]:08/21/2024 Patient: Yohana SUTTON :1990 A ge:33 Y S ex:Female Address:[address] [place], [address] * true * Date: Generated for Printi ng/Faselenag/eTransmitting on: 0 09/19/2024 04:36 PM CDT
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
--- OUTSIDE RECORDS SUMMARY | 2024-09-19 16:36 | XMS_ITS ---
Author Organization [facility] Address [address] [place] [address] Care Team Providers Care Vessel Ordinary Seaman Name Role Phone JimAnibalLaure Primary Care Provider Carlos Holley [phone] Allergies Allergen (clinical drug ingredient) Drug/Non Drug Allergy documented on EMR Reaction Allergy Type Onset Date Status amoxicillin / clavulanate Augmentin Unknown Drug Allergy Active Results Component Value Reference Range Notes 12 Panel Urine Drug Screen Reviewed date:07/19/2024 02:10:17 PM Interpretation: Performing Lab: Notes/Report: THC NEG ZAIRA NEG MOP (OPI) NEG AMP NEG MET NEG BAR NEG BZO NEG MDMA NEG MTD NEG OXY NEG PCP NEG BUP POS REASON FOR VISIT Walk-In Medications Medication SIG (Take, Route, Frequency, Duration) Notes Start Date End Date Status QUEtiapine Fumarate 50 mg TAKE 1 TABLET BY MOUTH AT BEDTIME Active Nicotine 21 MG/24HR 1 patch to skin Transdermal Once a day for 30 days remove at bedtime 02/22/2024 Active Buprenorphine HCl-Naloxone HCl 8-2 MG 1 film under the tongue and allow to dissolve Sublingual twice a day for 30 days will lease picker 07/2307/19/2024 Active Nicotine Polacrilex 4 MG 1 piece chew for 30 minutes as needed Mouth/Throat WINTER 1-2 HOURS As needed smoking cessation 02/22/2024 Active Social History Tobacco Use: Social History Observation Description Date Details (start date - stop date) Current Smoker NA - NA Sex Assigned At : Social History Observation Description Sex Assigned At Female Dont use, Tobacco Use/Smoking Question Answer Notes Are you a light tobacco smoker Additional Findings: Tobacco User Moderate cigar ette smoker (10-19 cigs/day) Alcohol Screen (Audit-C) Question Answer Notes Did [...] with others, in a hotel, in a prison, living outside on the street, on a [...] phone, visiting friends or family, going to mormon or club meetings) More than 5 times a week How stressed are you? Stress is when someone feels tense, nervous, anxious, or can\t sleep at night because their mind is troubled Very much In the past year have you sp ent more than 2 nights in a row in a long-term, care home, residential center, or juvenile correctional facility? No Are you a refugee? No What country are you from? [place] Do you feel physically and emotionally safe where you currently live? Yes In the past year, have you b een afraid of your partner or ex-partner? Yes PRAPARE Score: 10 Tobacco Control (Standard) Question Answer Notes Tobacco use: Current smoker Section Notes: - - - - - [...] Father Anxiety - None Vital Signs Weight 297.2 lbs 07/19/2024 Height 65 in 07/19/2024 BMI 49.45 kg/m2 07/19/2024 Blood pressure systolic 118 mm Hg 07/19/19 25 Blood pressure diastolic 68 mm Hg 025 Heart Rate 87 /min 07/19/2024 Oximetry 98 % 07/19/2024 Respiratory Rate 16 /min 07/19/2024 Encounters Encounter Location Date Provider Diagnosis [address] [place] [address] 07/19/2024 Carlos Holley Opioid use disorder F11.99 Assessments Encounter Date Diagnosis (ICD Code) Assessment Notes Treatment Notes Treatment Clinical Notes Section Notes 07/19/2024 Opioid use disorder (ICD-10 - F11.99) Plan Of Treatment Medication Medication Name Sig Start Date Stop Date Notes Buprenorphine HCl-Naloxone HCl 8-2 MG 1 film under the tongue and allow to dissolve Sublingual twice a day for 30 days 07/19/2024 will lease picker 2/3 Next Appt Details Follow Up: 4 Weeks, Reason: mar Progress Notes * Vic MATHISOB:1990 (33 yo F)Acc No.[id number]:07/19/2024 Patient: Yohana SUTTON Provider: Cherrie Holley :1990 A ge:33 Y S ex:Female Date:07/19/2024 Address:[address] [place], [place] [id number] Pcp:Laure Fernandez Check 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 Was hospitalized N o. D epression Screening: PHQ-9 L ittle interest or pleasure in doing things?Several days F eeling down, depressed, or hopeless S everal days T rouble falling or staying asleep, or sleeping too much N early every day F eeling tired or having little energy N early every day P oor appetite or overeating S everal days F eeling bad about yourself or that you are a failure, or have let yourself or your family down N ot at all T rouble concentrating on things, such as reading the newspaper or watching television N ot at all M oving or speaking so slowly that other people could have noticed; or the opposite, being so fidgety or restless that you have been moving around a lot more than usual N ot at all T houghts that you would be better off or of hurting yourself in some way N ot at all T otal Score 9 I nterpretation M ild Depression Intervention D epression Screening Findings P ositive F ollow-Up for Depression N o Referral necessary, patient involved in behavioral health treatment . S creening: [place] Suicide Severity Rating Scale (LF) 1 . Wish to be : Have you wished you were or wished you could go to sleep and not wake up? N o 2 . Suicidal Thoughts: Have you actually had any thoughts of killing yourself? N o 6 . Suicide Behaviour: Have you ever done anything,started to do anything, or prepared to end your life? N o I nterpretation: L ow Risk C SSRS Interpretation and Follow Up Plan: CSSRS Interpretation and Follow Up Plan C SSRS Screen documented using SF Y es R isk Disposition from SF L ow - No Follow Up Plan Required F ollow Up Plan N o Follow Up Plan required at this time. P reventative Health and Wellness follow-up: Action Plans for Clinical Quality Measures: C ervical Cancer Screening: N ot addressed during this visit. See notes for details. . M AR follow-up: AUG W/I W/O ISSUES. WAS STRETCHING OUT BUP DUE TO DIFFICULTY GETTING TO APPT. FOUND THAT 8 MG BID WORKED WELL 8 MG TID. 8 MG DAILY NOT EFFECTIVE. WOULD LIKE TO CONTINUE 8 MG BID. Medication Monitoring and Risk Mitigation U p-to-date on ASAM recommended lab testing??Yes P rescribed a buprenorphine product? Y es H as patient had a buprenorphine and metabolite lab ordered/collected? Y es (see notes for date of last metabolite testing) D ate of last buprenorphine and metabolite?11/15/2023 P rescription Drug Monitoring Program Review?Yes. No concerns at this time. P austin to address any concerns identified: N o concerns identified. Will continue treatment plan as is. Cravings, Setbacks, Substance use, and Stressors C ravings since last visit: N o. Patient denies cravings since last visit. S etbacks since last visit? N o, patient denies setbacks since last visit. M isuse of substances since last visit: N o, patient denies. S tressors Y es, patient admits to stressors. See notes. Recent lapse in insurance. Withdrawal and Intoxication Symptoms I ntoxication Symptoms: N o signs of intoxication are present during visit. W ithdrawal Symptoms: N o withdrawal signs are present during visit. Mental Health, Support System, and Social Determinants M ental Health Status S table. S upport Systems Include: P ersonal support system (see notes). C ourt System Involvement? N o H ousing Stability: S table and safe housing. 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 R eferrals needed: N o referrals needed at this time. Recommended Wellness and Prevention Follow-up R ecommended Wellness and Prevention reviewed:?Yes. No additional orders/actions needed at this time. Other concerns: O ther Concerns? N o. N arcan need N o. Patient already has Narcan. * ROS: B asic ROS: Denies S ubstance Abuse. * Medical History: * Surgical History: t onsillectomy 2009 * Hospitalization/Major Diagno stic Procedure: c hild 04/09 [facility] 11/2023 * Family History: F ather: , suicide. M other: , suicide. 1 sister(s) - healthy. 1 son(s) - healthy. . * Social History: P genevieve Social History: L iving Arrangement L iving Arrangement: I ndependent Living I s this a supportive environment? 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 I do not have housing (staying with others, in a hotel, in a prison, living outside on the street, on a beach, or in a park) Staying with sister for right now. A re you worried about losing your housing??No W hat is the highest level of school that you have finished? M ore than high school W hat is your current work situation? U nemployed and seeking work H as lack of transportation kept you from medical appointments, meetings, work or from getting things needed for daily living? Y es, it has kept me from medical appointments or from getting my medications,Yes, it has kept me from non-medical meetings, appointments, work, or getting things needed for daily living H ow often do you see or talk to people that you care about and feel close to? (For example: talking to friends on the phone, visiting friends or family, going to mormon or club meetings) M ore than 5 times a week H ow stressed are you? Stress is when someone feels tense, nervous, anxious, or can\t sleep at night because their mind is troubled V deandra much I n the past year have you spent more than 2 nights in a row in a long-term, care home, residential center, or juvenile correctional facility? N o A re you a refugee? N o W hat country are you from[place] D o you feel physically and emotionally safe where you currently live? Y es I n the past year, have you been afraid of your partner or ex-partner? Y es P RAPARE Score: 1 0 T obacco Use: D ont use, Tobacco Use/Smoking A re you a l ight tobacco smoker A dditional Findings: Tobacco User M oderate cigarette smoker (10-19 cigs/day) Tobacco Control (Standard) T obacco use: C urrent smoker D rugs/Alcohol: A lcohol Screen (Audit-C) D id you have a drink containing alcohol in the past year? Y es H ow often did you have a drink containing alcohol in the past year? 2 to 4 times a month (2 points) H ow many drinks did you have on a typical day when you were drinking in the past year? 1 or 2 drinks (0 point) H ow often did you have 6 or more drinks on one occasion in the past year? L ess than monthly (1 point) P oints 3 I nterpretation P ositive M iscellaneous: M ethod of learning P referred method of learning: D emonstration - - - - - - - [...] Concerta, Vyvanse Inpt Psych Hospitalizations - Multiple MH stays for SI/self harm when younger and [...] the tongue and allow to dissolve Sublingual three times daily Taking Nicotine Polacrilex 4 MG Gum 1 piece [...] the tongue and allow to dissolve Sublingual three times daily * Allergies: A ugmentin: Allergyno[Allergies Verified] Objective: * Vitals: I nitials: cv, Wt:297.2, Ht: 65, BMI:49.45, BP:118/68, HR:87, Oxygen sat %:98, RR:16, LMP: nexplanon, Pain scale:2. * Examination: A [facility] Physical Assessment: Intoxication and Withdrawal signs I ntoxication signs N o signs of intoxication are present during examination. W ithdrawal Signs N o withdrawal signs are present during examination. Assessment: * Assessment: 1. O pioid use disorder - F11.99 (Primary) Plan: * Treatment: Value Reference Range T HC NEG * C OC NEG * M OP (OPI) NEG * A MP NEG * M ET NEG * B AR NEG * B ZO NEG * M DMA NEG * M TD NEG * O XY NEG * P CP NEG * B UP POS * Recommended Wellness and Pre vention Guidelines: * S tatus A lert L ast Done N ext Due A ction Taken N ONCOMPLIANT C ervical cancer screening - 0 07/19/2024 - N ONCOMPLIANT I nfluenza vaccine (high risk) - 0 07/19/2024 - * Procedure Codes: 9 9000 SPECIMEN [id number] BODY MASS INDEX [id number] MEDICAL NUTRITION, INDIV, [id number] BEHAV CHNG SMOKING 3-10 MIN * Preventive Medicine: Counseling: C are goal follow-up plan: BMI management provided Y es Above Normal BMI Follow-up L ifestyle education regarding diet S MOKING: Patient counselled on the dangers of tobacco use and urged to quit. . * Follow Up: 4 Weeks (Reason: aug) * * LE PRESS OPERATOR Sign off status: Completed true * Provider: Cherrie Holley Date: 07/19/2024 Generated for Agustina ware/Angelique/Leora on: 0 09/19/2024 04:35 PM CDT History and Physical Notes * HPI (History of Present Illness) Category Sub-Category Detail Notes Category Not es Interim History Was hospitalized No Emergency room visit No Depression Screening PHQ-9 Little inte rest or pleasure in doing things: Several days Feeling down, depressed, or hopeless: Se veral days Trouble falling or staying asleep, or sl eeping too much: Nearly every day Feeling tired or having little energy: N early every day Poor appetite or overeating: Several day s Feeling bad about yourself o r that [...] some way: Not at all Total Score: 9 Interpretation: Mild Depression Intervention Depression Screening Findings: P ositive Follow-Up for Depression: No Referral necessary, patient involved in behavioral health treatment . Screening [place] Suicide Sev erity Rating Scale (LF) 1. Wish to be : Have you [...] testing) Date of last buprenorphine and metabolite: 11/15/2023 Prescription Drug Monitoring Program Rev iew: Yes. [...] hous ing. 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 Referrals needed:: No referrals needed a t [...]
--- OUTSIDE RECORDS SUMMARY | 2024-09-19 16:36 | XMS_ITS | Referral Summary ---
Author Organization [facility] Address [address] [place] [address] Care Team Providers Care Bushing And Broach Operator Name Role Phone No, Physician Primary Care Provider [phone] Allergies Active Allergy Reactions Criticality Noted Date Comments Amoxicillin-Pot Clavulanate Nausea & Vomiting Low 0 02/17/2024 Medications fluticasone propionate (FLONASE) 50 mcg/actuation nasal spray Administer 2 sprays into each nostril daily 16 g 3 Active loratadine (CLARITIN) 10 mg tablet Take 1 tablet (10 mg total) by mouth daily 20 tablet 3 Active doxycycline (VIBRAMYCIN) 100 mg capsule Take 1 tablet/capsule (100 mg total) by mouth 2 (two) times a day 20 capsule 3 Active ondansetron ODT (ZOFRAN-ODT) 4 mg disintegrating tabletIndications: nausea and vomiting Take 1 tablet (4 mg total) by mouth every 8 (eight) hours as needed for nausea or vomiting 12 tablet 3 Active nitrofurantoin monohydrate (MACROBID) 100 mg capsule Take 1 capsule (100 mg total) by mouth 2 (two) times a day 20 capsule 4 Active phenazopyridine (PYRIDIUM) 200 mg tablet Take 1 tablet (200 mg total) by mouth 3 (three) times a day 6 tablet 4 Active Social History Tobacco Use Types Packs/Day Years Used Date Smoking Tobacco: Every Day Smokeless Tobacco: Never Personal Safety Answer Date Recorded Have you ever been in or are you currently in a harmful physical or emotional relationship or is someone making you feel afraid or unsafe? 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 Gender Identity Not on file Sexual Orientation Not on file Last Filed Vital Signs Vital Sign Reading Time Taken Comments Blood Pressure 135/67 02/18/2024 1:00 AM CDT Pulse 78 02/18/2024 1:00 AM CDT Temperature 36.3 C (97.3 F) 02/17/2024 7:21 PM CDT Respiratory Rate 18 02/18/2024 1:00 AM CDT Oxygen Saturation 97% 02/18/2024 1:00 AM CDT Inhaled Oxygen Concentration - - Weight 124.8 kg (275 lb 2.2 oz) 02/17/2024 7:21 PM CDT Height 165.1 cm (5' 5 ) 02/17/2024 7:21 PM CDT Body Mass Index 45.78 02/17/2024 7:21 PM CDT Plan of Treatment Not on file Insurance [facility] OTHER Address: [address] [address] [place] [facility] Care Teams Bushing And Broach Operator Relationship Specialty Start Date End Date No, Physician PCP - General 05/25/18
--- OUTSIDE RECORDS SUMMARY | 2024-09-19 16:36 | XMS_ITS | Clinical Summary ---
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 Gender Identity Not on file Sexual Orientation Not on file Obstetrics History Last Filed Vital Signs Vital Sign Reading [...] 02/17/2024 7:21 PM CDT Plan of Treatment Health Maintenance Due Date Last Done Comments Cervical Cancer Screening 1992 Depression Screening 1992 Hepatitis C Screening 1992 DTaP/Tdap/Td Vaccine (4 - Tdap) 11/12/2003 06/24/1994, 07/30/1993, 03/05/1993 Varicella Vaccines (1 of 2 - 13+ 2-dose series) 2005 Regular Well Visit/Exam 18-64 2010 Pneumococcal vaccine <65 (1 of 2 - PCV) 11/12/2011 Influenza Vaccine (#1) 2024 Hepatitis B Screening Completed 07/30/1993 , 03/05/1993, 1992 HPV Vaccines Aged Out No longer eligi ble based on patient's age to complete this topic Insurance [facility] [employer] Member Subscriber Plan / Payer (Ef fective 2018-Present) Name:Yohana Mathis Relation to Subscriber:Self Name:Keyannasonali Yohana A Payer ID:[id number] (NAIC) Type:MEDICAID RISK OTHER Address: [address] [address] Care Teams Marketing Support Specialist Relationship Specialty Start Date End Date No, Physician PCP - General 05/25/18
--- OUTSIDE RECORDS SUMMARY | 2024-09-19 16:36 | XMS_ITS | Clinical Summary ---
Author Organization [facility] Address [address] [place] [address] Care Team Providers Care Blood Bank Coordinator Name Role Phone Unavailable Primary Care Provider Unavailabl e Source Comments [facility],non-owned Affiliates and Associated Physician Practices is amultiple site organization consisting of ambulatory clinics and hospital sitesin [place], [place], [place] and [place]. This disclosure is being madepursuant to the Care Everywhere program and may not contain all information available regarding this patient. Last updated 18.uBeam Allergies No known active allergies Medications * Be aware that medications may not be up to date on this document. Alwaysverify current medications with the patient. Medication Sig Dispensed Refills Start Date End Date Status methadone (DOLOPHINE) 10 MG tabletIndications:O pioid Dependence Take 285 mg by mouth once daily Reasons: Opioid Dependence Active buPROPion XL 24hr (WELLBUTRIN-XL) 150 MG tabletIndications:M ajor Depressive Disorder Take 1 tablet by mouth once daily Reasons: Major Depressive Disorder 15 tablet 1 04/07/2019 Active cephalexin (KEFLEX) 500 MG capsuleIndications: Genitourinary Infection Take 1 capsule by mouth 2 times daily Reasons: Infection of Genitals and/or Urinary Tract 8 capsule 04/06/2019 Active nicotine (NICODERM CQ) 14 MG/24HR patchIndications:Ni cotine Dependence Apply 1 patch to skin once daily Remove old patch before applying new patch. Reasons: Nicotine Addiction 7 patch 04/06/2019 Active ondansetron, disintegrating, (Zofran ODT) 4 MG tabletIndications:N ausea without vomiting Take 1 (one) tablet by mouth every 6 hours as needed for Nausea/Vomiting Allow tablet to dissolve on the tongue Reasons: Nausea without vomiting 30 tablet 06/29/2022 Active albuterol HFA (ProAir HFA) 108 (90 Base) MCG/ACT inhalerIndications: Shortness of breath Inhale 2 (two) puffs by mouth every 6 hours as needed for Shortness of Breath Reasons: Shortness of breath 8 g 06/29/2022 Active aspirin-acetaminoph en-caffeine (Excedrin Migraine) 250-250-65 MG tabletIndications:H eadache Take 2 (two) tablets by mouth every 24 hours as needed for Headache Reasons: Headache 15 tablet 06/29/2022 Active fluticasone propionate (Flonase) 50 MCG/ACT nasal sprayIndications:Ac adilson non-recurrent frontal sinusitis [place] 2 (two) sprays into each nostril once daily 16 g 06/29/2022 Active naloxone HCl (Narcan) 4 MG/0.1ML nasal spray [place] 1 (one) spray into the nose as needed (May repeat every 2 min in alternating nostrils until emergency medical help arrives for overdose) 2 Each 10/03/2022 Active Active Problems Problem Noted Date Diagnosed Date Bipolar disorder 03/30/2019 Opioid withdrawal 09/29/2018 Family History Medical History Relation Name Comments Cancer - Other Maternal Grandfather Throa t Cancer - Renal Maternal Grandfather Relation Name Status Comments Maternal Grandfather Social History Tobacco Use Types Packs/Day Years Used Date Smoking Tobacco: Every Day Cigarettes Smokeless Tobacco: Never Tobacco Cessation:Ready to Q uit: No; Counseling Given: No Alcohol Use Standard Drinks/Week Comments Never 0 (1 standard drink = 0.6 oz pur e alcohol) AUDIT-C Answer Date Recorded Q1: How often do you have a drink containing alcohol? Never 10/03/2022 Q2: How many drinks containi ng alcohol do you have on a typical day when you are drinking? Patient does not drink Q3: How often do you have si x or more drinks on one occasion? Never 10/03/2022 Sex and Gender Information Value Date Recorded Sex Assigned at Not on file Gender Identity Not on file Sexual Orientation Not on file Last Filed Vital Signs Vital Sign Reading Time Taken Comments Blood Pressure 144/89 10/03/2022 1:00 AM CDT Pulse 89 10/03/2022 1:00 AM CDT Temperature 36.8 C (98.3 F) 10/03/2022 1:15 AM CDT Respiratory Rate 14 10/03/2022 1:00 AM CDT Oxygen Saturation 98% 10/03/2022 1:00 AM CDT Inhaled Oxygen Concentration - - Weight 99.8 kg (220 lb) 10/03/2022 12:57 AM CDT Height 167.6 cm (5' 6 ) 10/03/2022 12:57 AM CDT Body Mass Index 35.51 10/03/2022 12:57 AM CDT Plan of Treatment Health Maintenance Due Date Last Done Comments PAP SMEAR 1992 DTAP/TDAP/TD VACCINES (1 - Tdap) 11/12/2011 HEPATITIS B VACCINE (1 of 3 - 19+ 3-dose series) 11/12/2011 PNEUMOCOCCAL VACCINE (1 of 2 - PCV) 11/12/2011 COVID-19 VACCINE ( - 2023-2 5 season) 2024 INFLUENZA VACCINE (#1) 2024 ZOSTER VACCINE (1 of 2) 2042 HEPATITIS C SCREENING Completed 09/29/2018 HIV SCREENING Completed 09/30/2018 HIB VACCINE Aged Out No longer eligi ble based on patient's age to complete this topic HPV VACCINE Aged Out No longer eligi ble based on patient's age to complete this topic MENINGOCOCCAL (Group B) VACC INE SHARED DECISION-MAKING Aged Out No longer eligibl e based on patient's age to complete this topic MENINGOCOCCAL GROUPS A/C/Y/W VACCINE Aged Out No longer eligible b ased on patient's age to complete this topic Procedures Procedure Name Priority Date/Time Associated Diagnosis Comments HIV-1 HIV-2 ANTIBODY + HIV P24 AG PANEL AM Draw 09/30/2018 1:01 AM CDT HEPATITIS SCREEN ACUTE Routine 09/29/2018 3:01 PM CDT from Last 3 Months or Most Recently Relevant to Health Maintenance Results * HIV-1 HIV-2 ANTIBODY + HIV P24 AG PANEL (09/30/2018 1:01 AM CDT) HIV1/2 Ab + P24 Ag Non Reactive Non Reactive 09/30/2018 2:40 AM CDT [facility] Blood BLOOD SPECIMEN / Unknown Venipuncture / Unknown 09/30/2018 1:01 AM CDT 09/30/2018 2:00 AM CDT Narrative [facility] - 09/30/2018 2:40 AM CDT No Laboratory evidence of HIV infection. Tai Thorne MD LAB - CHEMISTRY [facility] Performing Organization Address [facility]/ZIP Co de Phone Number [facility] [address] [place] [address] * HEPATITIS SCREEN ACUTE (09/29/2018 3:01 PM CDT) [facility] Antibody IgM Non Reactive Non Reactive 09/29/2018 3:51 PM CDT [facility] HBsAg Non Reactive Non Reactive 09/29/2018 3:51 PM CDT [facility] HBc Antibody IgM Non Reactive Non Reactive 09/29/2018 3:51 PM CDT [facility] HCV Antibody Screen Non Reactive Non Reactive 09/29/2018 3:51 PM CDT [facility] HCV S/C Ratio 0.23 0.00 - 0.79 09/29/2018 3:51 PM CDT [facility] Comment: Zyospp-cx-zayked ratio (S/CO) <0.80: Non Reactive Blood BLOOD SPECIMEN / Unknown Venipuncture / Unknown 09/29/2018 3:01 PM CDT 09/29/2018 3:10 PM CDT Narrative [facility] - 09/29/2018 3:51 PM CDT Non Reactive - Antibodies to Hepatitis C virus (HCV) were not detected, result does not exclude early acute HCV infection. Tai Thorne MD LAB - CHEMISTRY [facility] Performing Organization Address [facility]/ZIP Co de Phone Number [facility] [address] [place] [address] from Last 3 Months or Most Recently Relevant to Health Maintenance Advance Directives * Full Code (Latest Code Status on File) Date Activated Date Inactivated Comments 03/30/2019 4:20 AM 04/06/2019 9:37 PM * Full Code Date Activated Date Inactivated Comments 09/29/2018 2:34 PM 10/02/2018 11:50 AM
--- OUTSIDE RECORDS SUMMARY | 2024-09-19 16:36 | XMS_ITS | Clinical Summary ---
Author Organization [facility] Address [facility] [place] [address] Care Team Providers Care Change Of Address Clerk Name Role Phone None, Provider MD Primary Care Provider Unavaila ble Allergies No known active allergies Medications buprenorphine-na loxone (SUBOXONE) 4 mg-[address] 1 Film under the tongue 3 (three) times daily. Active naloxone (NARCAN) 4 MG/0.1ML nasal spray 1 spray by Nasal route as needed for Opioid reversal. Active Social History Tobacco Use Types Packs/Day Years Used Date Smoking Tobacco: Never Assessed Smokeless Tobacco: Current Tobacco Cessation:Ready to Q uit: Not Asked; Counseling Given: Not Answered Comments Unknown Sex and Gender Information Value Date Recorded Sex Assigned at Not on file Legal Sex Female 6:01 PM CDT Gender Identity Not on file Sexual Orientation Not on file Last Filed Vital Signs Vital Sign Reading Time Taken Comments Blood Pressure 132/82 10/10/2022 11:31 AM CDT Pulse 85 10/10/2022 11:31 AM CDT Temperature - - Respiratory Rate 20 10/10/2022 11:31 AM CDT Oxygen Saturation 99% 10/10/2022 11:31 AM CDT Inhaled Oxygen Concentration - - Weight 92.2 kg (203 lb 4.2 oz) 10/10/2022 11:31 AM CDT Height 165.1 cm (5' 5 ) 10/10/2022 11:31 AM CDT Body Mass Index 33.82 10/10/2022 11:31 AM CDT Plan of Treatment Health Maintenance Due Date Last Done Comments Annual Physical 11/12/1995 Hepatitis C 2010 DTaP, Tdap and Td Vaccines ( 4 - Tdap) 11/12/2011 06/24/1994, 07/30/1993, 03/05/1993 Cervical Cancer Screening Pa p with HPV Testing (Age 30 to 64) Every 5 Years 2022 06/30/2022 COVID-19 Vaccine (2023-2 5 season) 2024 Influenza Adult (#1) 2024 Cervical Cancer Screening Pa p Smear (Age 30 to 64) Every 3 Years 06/30/2025 06/30/2022 Cervical Cancer Screening wi th HPV 06/30/2025 Hepatitis B Vaccines Completed 07/30/1993, 03/05/1993, 1992 HPV Vaccines Aged Out No longer eligi ble based on patient's age to complete this topic Meningococcal B Vaccine Aged Out No l onger eligible based on patient's age to complete this topic Meningococcal Vaccine Aged Out No marlee kwaku eligible based on patient's age to complete this topic Pneumococcal Vaccine: Pediatrics (0 to 5 Years) and At-Risk Patients (6 to 64 Years) Aged Out No longer eligible b ased on patient's age to complete this topic RSV Immunizations Under 20 Months Aged Out No longer eligible b ased on patient's age to complete this topic Insurance LEMA Care Teams Change Of Address Clerk Relationship Specialty Start Date End Date None, Provider, MD PCP - General UNKNOWN PHYSICIAN SPECIALTY 10/10/22
--- OUTSIDE RECORDS SUMMARY | 2024-09-19 16:36 | XMS_ITS | CONTINUITY OF CARE DOCUMENT ---
Author Name kalyani auguste Address Unknown Organization [facility] Address [address] [place] [address] [address] [place] [address] Phone [phone] Care Team Providers Care Barista Name Role Phone Joe PARRA, Emir Unavailable Emir Diaz MD Unavailable INSURANCE PROVIDERS Payer name Policy type / Coverage type [place] red republican ID [id number] PAY
[2024-09-19 16:38] LABS: BEDSIDEPREGUCG Negative (Negative)
[2024-09-19 17:07] LABS: Basophils Percent Auto 0.2 % (0.2-1.2); Eosinophils Absolute Auto 0.1 K/mm3 (0-0.3); Eosinophils Percent Auto 1.3 % (0-4.4); Hematocrit 40.1 % (37.0-47.0); Hemoglobin 13.5 g/dL (12.0-15.0); Immature Granulocyte Absolute 0.02 K/mm3 (0.00-0.031); Immature Granulocyte Percent A 0.2 % (0-0.5); Lymphocytes Absolute Auto 2.96 K/mm3 (0.9-3.2); Lymphocytes Percent Auto 31.9 % (18.3-44.2); Mean Corpuscular HGB Conc 33.7 g/dl (32-36); Mean Corpuscular Hemoglobin 30.5 pg (26-34); Mean Corpuscular Volume 90.7 fl (80-100); Mean Platelet Volume 11.5 fl (7.4-10.4); Monocytes Absolute Auto 0.5 K/mm3 (0.1-0.6); Monocytes Percent Auto 4.8 % (2.6-8.5); Neutrophils Absolute Auto 5.7 K/mm3 (1.3-6.7); Neutrophils Percent Auto 61.6 % (45.5-73.1); Platelet Count Result 201 k/mm3 (150-375); Red Blood Count 4.42 M/mm3 (4.2-5.4); Red Cell Distribution Width 13.5 % (11.5-14.5); White Blood Count 9.3 K/mm3 (4.5-10.0)
[2024-09-19 17:08] LABS: Add Urine Microscopic? YES; Appearance Urine Clear (Clear); Bilirubin Urine Negative (Negative); Blood Urine Negative (Negative); Color Urine Yellow (Yellow); Glucose Urine UA Negative (Negative); Ketones Urine Negative (Negative); Leukocyte Esterase Ur Negative LEU/UL (Negative); Nitrate Urine Negative (Negative); Protein Urine Negative (Negative); Specific Grav Ur 1.024 (1.001-1.035)
--- NOTE | 2024-09-19 17:09 | ED_ITS ---
HPI - Back Pain/Injury General Chief Complaint: Back Pain/Injury Stated Complaint: pain in back and abd Time Seen by Provider: 09/19/24 16:41 Source: patient Mode of arrival: ambulatory Limitations: no limitations History of Present Illness HPI Narrative: Patient is a 33-year-old female who presents the ED with report of lower abdomen and back pain. Patient reports she has been having pain throughout her lower back and lower abdomen over the last 4 days. Was concerned she may be developing a urinary tract infection. Went to an urgent care today and was told her urine sample did not show evidence of infection. Sent to the ED for further evaluation. Patient voices concern for possibly sexually transmitted diseases and yeast infection. Reports having some thick white vaginal discharge. Reports intermittent nausea, denies vomiting. Reports chills and diaphoresis without known fevers. Denies dysuria or hematuria. Denies abnormal vaginal bleeding. Related Data Home Medications ?Medication ?Instructions ?Recorded ?Confirmed ?Last Taken ?Type buprenorphine 8 mg-naloxone 2 mg 1 film buccal TID 11/22/23 05/13/24 Unknown History sublingual film (Suboxone) quetiapine 50 mg tablet 50 mg PO HS 11/22/23 05/13/24 Unknown History Allergies Allergy/AdvReac Type Severity Reaction Status Date / Time amoxicillin (From Augmentin) Allergy Mild Hypertensio Verified 09/19/24 13:51 n clavulanic acid (From Allergy Mild Hypertensio Verified 09/19/24 13:51 Augmentin) n Review of Systems 2 Review of Systems: All systems reviewed & are unremarkable except as noted in HPI. All systems reviewed & are unremarkable except as noted in HPI and below PMFSH Past Medical History Medical History Schizophrenia ?? Irritable bowel syndrome HPV (human papilloma virus) anogenital infection Cervical dysplasia Hepatitis C Intravenous drug abuse in remission Patient used IV methamphetamines, heroin, fentanyl, prescription narcotics and smoked methamphetamines in the past. She entered rehab in October of 2022. Morbid obesity Anxiety and depression Surgical History Surgical History History of tonsillectomy and adenoidectomy Family History Family History Grandparent Pancreatic cancer Social History Social History Social History: Patient lives at home with her 10-year-old son and her grandmother and grandfather. She was raised by her grandparents after her father overdosed and her mother committed suicide. Her son is 10 years old (as of November 2023). She has smoked 1-2 packs cigarettes per day since she was in her early teens. She does drink alcohol on occasion. She has a long history of polysubstance abuse. She started smoking and injecting meth at 21 and then in her mid 20s transition to combination of meth and fentanyl. She still smokes marijuana somewhat regularly. Code status: Full code Surrogate decision maker: Joseph Mathis Smoking packs per day: 2 Smoking cigarettes per day: 40.0 Years smoked: 15 Smoking pack-years: 30.00 Smoking status: Current every day smoker Tobacco type: cigarettes Alcohol intake: current Substance use: current Substance use type: marijuana, heroin, opiates, IV drugs and methamphetamine Other substance usage details: Patient has used a combination of meth, fentanyl/opiates in various forms Last use: October 2022 Do You Feel Safe in your Home?: Yes Lack of Transportation: No Lack of Food: Sometimes True Current Housing: I Have Housing Concerned About Future Housing: No Difficulty Paying Gas/Electric Bills: No Difficulty Paying for Meds: No Currently Unemployed: No Education: High School Diploma/GED Difficulty w/ Childcare or Family Care: No Occupation/Education: occupation Additional occupation/education comments: She works in a [employer] Spiritual care concerns: No Exam 2 Narrative: GENERAL: Well appearing, morbidly obese with BMI of 48.0, non-toxic, in no acute distress. HEAD: Normocephalic, atraumatic. RESPIRATORY: Airway patent, respirations nonlabored. Clear to auscultation bilaterally, no rales, rhonchi, wheezing. CARDIOVASCULAR: Regular rate and rhythm without murmurs, rubs, or gallops. ABDOMINAL: Soft, mild tenderness to palpation suprapubic region, nondistended. Normoactive BS. MUSCULOSKELETAL: Moves all extremities. No gross deformities. Diffuse tenderness to palpation throughout your sacral region. No significant midline spinal tenderness. SKIN: Warm, dry, normal color. NEURO: A&O X3. Speech clear. PSYCHIATRIC: Appropriate mood and affect. Normal interaction. Course Vital Signs Vital signs: Vital Signs Temperature 97.7 F 09/19/24 15:47 Pulse Rate 80 09/19/24 15:47 Respiratory Rate 20 09/19/24 15:47 Blood Pressure 138/71 09/19/24 15:47 Pulse Oximetry 99 09/19/24 15:47 Oxygen Delivery Room Air 09/19/24 15:47 Temperature 98.2 F 09/19/24 21:00 Pulse Rate 82 09/19/24 21:00 Respiratory Rate 20 09/19/24 21:00 Blood Pressure 115/65 09/19/24 21:00 Pulse Oximetry 97 09/19/24 21:00 Oxygen Delivery Room Air 09/19/24 15:47 MDM - Back Pain/Injury MDM Narrative Medical decision making narrative: Patient presented to ED with several day hx of lower abd/back pain. VSS upon arrival. Patient was concerned for possible yeast infection versus STI. Discussed performing pelvic exam. Patient declined at this time. Given 1 time dose of Diflucan in the ED. Gonorrhea, chlamydia, Trichomonas negative. Laboratory studies are otherwise unremarkable. Minimal transaminitis. UA is clear. Urine negative. CT scan of abdomen/pelvis was obtained and showing asymptomatic enlargement of left ovary. Otherwise negative. Pelvic ultrasound obtained to rule out torsion. Pelvic ultrasound showing good vascular blood flow to both ovaries, did show complex cystic structure on left ovary. Discussed imaging findings with patient. She has remained stable throughout ED stay. Feel she is safe for discharge home with close outpatient follow-up with OBGYN. Patient is in agreement with this plan. Discussed strict return precautions. She voiced understanding. Feels comfortable going home. Discharged in stable condition. Medical Records Attestation: I reviewed the patient's medical records. Lab Data Attestation: I reviewed the patient's lab results. 09/19/24 17:00 09/19/24 17:00 Labs: Lab Results 09/19/24 09/19/24 09/19/24 Range/Units 16:36 16:59 17:00 WBC 9.3 (4.5-10.0) K/mm3 RBC 4.42 (4.2-5.4) M/mm3 Hgb 13.5 (12.0-15.0) g/dL Hct 40.1 (37.0-47.0) % MCV 90.7 (80-100) fl MCH 30.5 (26-34) pg MCHC 33.7 (32-36) g/dl RDW 13.5 (11.5-14.5) % Plt Count 201 (150-375) k/mm3 MPV 11.5 H (7.4-10.4) fl Immature Gran % (Auto) 0.2 (0-0.5) % Neut % (Auto) 61.6 (45.5-73.1) % Lymph % (Auto) 31.9 (18.3-44.2) % Armstrong % (Auto) 4.8 (2.6-8.5) % Eos % (Auto) 1.3 (0-4.4) % Baso % (Auto) 0.2 (0.2-1.2) % Lymph # (Auto) 2.96 (0.9-3.2) K/mm3 Armstrong # (Auto) 0.5 (0.1-0.6) K/mm3 Eos # (Auto) 0.1 (0-0.3) K/mm3 Baso # (Auto) 0.0 (0.0-0.1) K/mm3 Abs Immat Gran (auto) 0.02 (0.00-0.031) K/mm3 Absolute Neuts (auto) 5.7 (1.3-6.7) K/mm3 Absolute Nucleated RBC 0.000 (0.0-0.012) K/mm3 Nucleated RBC % 0.0 (0.0-0.2) % Sodium 139 (137-145) mmol/L Potassium 4.0 (3.4-5.0) mmol/L Chloride 104 (98-107) mmol/L Carbon Dioxide 25 (22-30) mmol/L Anion Gap 10 (4-12) mmol/L BUN 12 D (7-17) mg/dL Creatinine 0.68 L (0.7-1.0) mg/dL Estim Creat Clear Calc 141 ml/min Estimated GFR > 60 (59 - ) Glucose 85 (65-110) mg/dL Calcium 9.7 (8.4-10.2) mg/dL Total Bilirubin 0.5 (0.2-1.3) mg/dL AST 74 H (14-36) U/L ALT 128 H (6-35) U/L Alkaline Phosphatase 76 (38-126) U/L Total Protein 8.0 (6.3-8.2) g/dL Albumin 4.5 (3.5-5.1) g/dL Lipase 113 (23-300) U/L Urine Color Yellow (Yellow) Urine Appearance Clear (Clear) Urine pH 6.0 (5.0-9.0) Ur Specific Preston 1.024 (1.001-1.035) Urine Protein Negative (Negative) mg/dL Urine Glucose (UA) Negative (Negative) mg/dL Urine Ketones Negative (Negative) mg/dL Ur Blood (Man) Negative (Negative) Urine Nitrate Negative (Negative) Urine Bilirubin Negative (Negative) Urine Urobilinogen 2.0 H (<2.0) mg/dL Leukocyte Esterase Rfl Negative (Negative) PANCHITO/UL POC Urine HCG, Qual Negative (Negative) C. trachomatis (PCR) Not detected (NOT DETECTE) N. gonorrhoeae (PCR) Not detected (NOT DETECTE) T. vaginalis (PCR) Not detected (NOT DETECTE) Imaging Data Attestation: I personally reviewed and interpreted this imaging study as follows: Radiologist's impression: ITS Impressions Miscellaneous CT Procedure 09/19/24 17:44 IMPRESSION: Hepatosplenomegaly. Asymmetric enlargement of the left ovary, likely representing a cyst (rather than ovarian torsion) for which ultrasound examination may be performed as nonemergent follow-up. Transvaginal US 09/19/24 20:20 IMPRESSION: Within the left adnexa is a focus of fluid (as described on previous CT examination) within the left ovary. This cystic focus is consistent with a simple cyst measuring 4.6 cm in greatest dimension, which contains a smaller cystic cavity. Nonemergent follow-up is recommended to confirm the absence of vascularity within this smaller cystic focus, as detailed above. Typically, no follow-up is needed for cysts less than 5 to 6 cm in size. Discharge Plan Discharge Clinical Impression: Intermittent lower abdominal pain, Left ovarian cyst Lower back pain Qualifiers: Chronicity: acute Back pain laterality: bilateral Sciatica presence: without sciatica Qualified Code(s): M54.50 - Low back pain, unspecified Patient Disposition: Home, Self-Care Condition: Stable Instructions: Antibiotic Form, Ovarian Cyst (ED), Acute Low Back Pain (ED) Additional Instructions: Continue Tylenol and ibuprofen as needed for pain. Zofran as needed for further nausea. Stay well hydrated. Follow-up with primary care doctor and OBGYN for further evaluation. Return to the ED if you experience worsening or severe pain, unable to keep down food or drink, difficulty urinating, abnormal vaginal bleeding, persistent fevers, or any other symptoms of concern. Patient Language: Swedish Prescriptions: New ondansetron 4 mg tablet,disintegrating 4 mg PO Q8H PRN (Reason: nausea and vomiting) Qty: 15 0RF No Action (DME) Aerochamber MV Spacer See Rx Instructions .Route Qty: 1 0RF Rx Instructions: As directed quetiapine 50 mg tablet 50 mg PO HS buprenorphine-naloxone [Suboxone] 8-2 mg Film 1 film BUCCAL TID ondansetron 4 mg tablet,disintegrating 4 mg PO TID PRN (Reason: nausea and vomiting) Qty: 15 0RF Follow-up/Referrals: Lora Ortiz MD [Physician] - (OBGYN) PHYSICIAN,INGOT HEADER [Non-Staff] -
[2024-09-19 17:17] LABS: Alanine Aminotransferase 128 U/L (6-35); Albumin Level 4.5 g/dL (3.5-5.1); Alkaline Phosphatase 76 U/L (38-126); Anion Gap 10 mmol/L (4-12); Aspartate Amino Transferase 74 U/L (14-36); Bilirubin,Total 0.5 mg/dL (0.2-1.3); Blood Urea Nitrogen 12 mg/dL (7-17); Calcium 9.7 mg/dL (8.4-10.2); Carbon Dioxide 25 mmol/L (22-30); Chloride 104 mmol/L (98-107); Estimated CRCL calculation 141 ml/min; Estimated Glomerular Filt Rate > 60; Glucose 85 mg/dL (65-110); Lipase 113 U/L (23-300); Sodium 139 mmol/L (137-145)
[2024-09-19] MEDS: FLUCONAZOLE 150 MG TABLET PO (17:19)
[2024-09-19] MEDS: ONDANSETRON INJ 4 MG/2 ML VIAL IV PUSH (17:19)
--- OUTSIDE RECORDS SUMMARY | 2024-09-19 18:20 | XMS_ITS | Clinical Summary ---
Author Organization [facility] Address [facility] [place] [address] Care Team Providers Care Metal Buggy Operator Name Role Phone None, Provider MD Primary [...] complete this topic Insurance LEMA Care Teams Metal Buggy Operator Relationship Specialty Start Date End Date None, Provider, MD PCP - General UNKNOWN PHYSICIAN SPECIALTY 10/10/22
--- OUTSIDE RECORDS SUMMARY | 2024-09-19 18:20 | XMS_ITS | Clinical Summary ---
Author Organization [facility] Address [address] [place] [address] Care Team Providers Care Nicu Rn Name Role Phone Unavailable Primary Care Provider Unavailabl e Source Comments [facility],non-owned Affiliates and Associated Physician Practices is amultiple site organization consisting of ambulatory clinics and hospital sitesin [place], [place], [place] and [place]. This disclosure is being madepursuant to the Care Everywhere program and may not contain all information available regarding this patient. Last updated 18.[employer] Allergies No known active allergies Medications * [...] MCG/ACT nasal sprayIndications:Ac adilson non-recurrent frontal sinusitis [place] 2 (two) sprays into each nostril once daily 16 g 06/29/2022 Active naloxone HCl (Narcan) 4 MG/0.1ML nasal spray [place] 1 (one) spray into the nose as [...] AM CDT 09/30/2018 2:00 AM CDT Narrative [facility] - 09/30/2018 2:40 AM CDT No Laboratory evidence of HIV infection. Tai Thorne MD LAB - CHEMISTRY [facility] Performing Organization Address [facility]/ZIP Co de Phone Number [facility] [address] [place] [address] * HEPATITIS SCREEN ACUTE (09/29/2018 3:01 PM CDT) [facility] HAV Antibody IgM Non Reactive Non Reactive 09/29/2018 3:51 PM CDT [facility] HBsAg Non Reactive Non Reactive 09/29/2018 3:51 PM CDT [facility] HBc Antibody IgM Non Reactive Non Reactive 09/29/2018 3:51 PM CDT [facility] HCV Antibody Screen Non Reactive Non Reactive 09/29/2018 3:51 PM CDT [facility] HCV S/C Ratio 0.23 0.00 - 0.79 09/29/2018 3:51 PM CDT [facility] Comment: Rzcibm-mc-mgksqw ratio (S/CO) <0.80: Non Reactive Blood BLOOD SPECIMEN / Unknown Venipuncture / Unknown 09/29/2018 3:01 PM CDT 09/29/2018 3:10 PM CDT Narrative [facility] - 09/29/2018 3:51 PM CDT Non Reactive - Antibodies to Hepatitis C virus (HCV) were not detected, result does not exclude early acute HCV infection. Tai Thorne MD LAB - CHEMISTRY [facility] Performing Organization Address [facility]/ZIP Co de Phone Number [facility] [address] [place] [address] from Last 3 Months or Most Recently Relevant to Health Maintenance Advance Directives * Full Code (Latest Code Status on File) Date Activated Date Inactivated Comments 03/30/2019 4:20 AM 04/06/2019 9:37 PM * Full Code Date Activated Date Inactivated Comments 09/29/2018 2:34 PM 10/02/2018 11:50 AM
--- OUTSIDE RECORDS SUMMARY | 2024-09-19 18:20 | XMS_ITS | Referral Summary ---
Author Organization [facility] Address [address] [place] [address] Care Team Providers Care Buttoner Name Role Phone No, Physician Primary Care Provider [phone] Allergies Active Allergy Reactions Criticality Noted Date [...] on file Legal Sex Female 8:47 AM [employer] Gender Identity Not on file Sexual Orientation [...] Plan of Treatment Not on file Insurance [facility] OTHER Address: [address] [address] [place] [facility] [place] [facility] Care Teams Buttoner Relationship Specialty Start Date End Date No, Physician PCP - General 05/25/18
--- OUTSIDE RECORDS SUMMARY | 2024-09-19 18:20 | XMS_ITS | CONTINUITY OF CARE DOCUMENT ---
Author Name kalyani auguste Address Unknown Organization [facility] Address [address] [place] [address] [address] [place] [address] Phone [phone] Care Team Providers Care Document Examiner Name Role Phone Joe PARRA, Emir Unavailable [phone] Emir Diaz MD Unavailable INSURANCE PROVIDERS Payer name Policy type / Coverage type [place] [employer] green party ID [id number] PAY
--- OUTSIDE RECORDS SUMMARY | 2024-09-19 18:20 | XMS_ITS | Patient Health Record ---
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 grandmother ADD/ADHD - None Schizophrenia - Mother Bipolar - Mother Depression - Father Anxiety - None ADDITIONAL SOCIAL HISTORY 02/25/2023: PERSONAL BACKGROUND HISTORY Describe childhood- Reports bad [...] On probation for meth possession Spiritual Affiliation- [facility] PAST PSYCHIATRIC HISTORY Past Psychiatrist or Therapist [...] Self-Injury/High Risk Bx - Cutting when younger FAMILY PSYCHIATRIC HISTORY Suicides or Attempts - Mom by suicide Alcohol/Drug Use - Both parents and maternal grandmother ADD/ADHD - None Schizophrenia - Mother Bipolar - Mother Depression - Father Anxiety - None ADDITIONAL SOCIAL HISTORY 02/25/2023: PERSONAL BACKGROUND HISTORY Describe childhood- Reports bad [...] probation for meth possession Spiritual Affiliation- [employer] PAST PSYCHIATRIC HISTORY Past Psychiatrist or Therapist [...] Self-Injury/High Risk Bx - Cutting when younger FAMILY PSYCHIATRIC HISTORY Suicides or Attempts - Mom by suicide Alcohol/Drug Use - Both parents and maternal grandmother ADD/ADHD - None Schizophrenia - Mother Bipolar - Mother Depression - Father Anxiety - None ADDITIONAL SOCIAL HISTORY 02/25/2023: PERSONAL BACKGROUND HISTORY Describe childhood- Reports bad [...] probation for meth possession Spiritual Affiliation- [employer] PAST PSYCHIATRIC HISTORY Past Psychiatrist or Therapist [...] Self-Injury/High Risk Bx - Cutting when younger FAMILY PSYCHIATRIC HISTORY Suicides or Attempts - Mom by suicide Alcohol/Drug Use - Both parents and maternal grandmother ADD/ADHD - None Schizophrenia - Mother Bipolar - Mother Depression - Father Anxiety - None ADDITIONAL SOCIAL HISTORY 02/25/2023: PERSONAL BACKGROUND HISTORY Describe childhood- Reports bad [...] probation for meth possession Spiritual Affiliation- [employer] PAST PSYCHIATRIC HISTORY Past Psychiatrist or Therapist [...] Self-Injury/High Risk Bx - Cutting when younger FAMILY PSYCHIATRIC HISTORY Suicides or Attempts - Mom by suicide Alcohol/Drug Use - Both parents and maternal grandmother ADD/ADHD - None Schizophrenia - Mother Bipolar - Mother Depression - Father Anxiety - None ADDITIONAL SOCIAL HISTORY 02/25/2023: PERSONAL BACKGROUND HISTORY Describe childhood- Reports bad [...] probation for meth possession Spiritual Affiliation- [employer] PAST PSYCHIATRIC HISTORY Past Psychiatrist or Therapist [...] Self-Injury/High Risk Bx - Cutting when younger FAMILY PSYCHIATRIC HISTORY Suicides or Attempts - Mom by suicide Alcohol/Drug Use - Both parents and maternal grandmother ADD/ADHD - None Schizophrenia - Mother Bipolar - Mother Depression - Father Anxiety - None ADDITIONAL SOCIAL HISTORY 02/25/2023: PERSONAL BACKGROUND HISTORY Describe childhood- Reports bad [...] probation for meth possession Spiritual Affiliation- [employer] PAST PSYCHIATRIC HISTORY Past Psychiatrist or Therapist [...] Self-Injury/High Risk Bx - Cutting when younger FAMILY PSYCHIATRIC HISTORY Suicides or Attempts - Mom by suicide Alcohol/Drug Use - Both parents and maternal grandmother ADD/ADHD - None Schizophrenia - Mother Bipolar - Mother Depression - Father Anxiety - None - - - - - - - [...] Mother Depression - Father Anxiety - None - - - - - - - [...] Mother Depression - Father Anxiety - None - - - - - - - [...] Mother Depression - Father Anxiety - None - - - - - - - [...] Mother Depression - Father Anxiety - None - - - - - - - [...] Mother Depression - Father Anxiety - None Problems Problem Type SNOMED Code ICD Code Onset Dates Problem Status W/U Status Risk Notes Problem 157486434 Morbid obesity (E66.01) Active confirmed Problem Generalized anxiety disorder (54313914) RADHA (generalized anxiety disorder) (F41.1) Active confirmed Problem Psychoactive substance dependence (9045050) Chemical dependency (F19.20) Active confirmed Problem 6768164 Urinary hesitanc y (R39.11) Active confirmed Problem Depressive disorder (19525595) Depressive disorder (F32.9) Active confirmed Problem Schizoaffective disorder (67563504) Schizoaffective disorder (F25.9) Active confirmed Problem Hyperlipidaemia (54080455) Hyperlipemia (E78.5) Active confirmed Problem 304244531 Obesity (BMI 30-39.9) (E66.9) Active confirmed Problem 104532875 Insomnia, unspecified type (G47.00) Active confirmed Problem Opioid dependence (07922792) Opioid use disorder, severe (F11.20) Active confirmed Problem Tobacco use (253186540) Tobacco use disorder (F17.200) Active confirmed Problem Morbid obesity (148297165) Obesity, morbid, BMI 40.0-49.9 (E66.01) Active confirmed Problem Mental disorder caused by drug (566577333) Opioid use disorder (F11.99) Active confirmed Problem Metabolic syndrome (757004043) Metabolic syndrome (E88.810) Active confirmed Vital Signs Heart Rate 101 /min 08/21/2024 Temperature 98.3 degrees Fahrenheit 05/18/2024 Respiratory Rate 16 /min 08/21/2024 Oximetry 98 % 08/21/2024 Blood pressure diastolic 82 mm Hg 08/21/2024 Height 65 in 08/21/2024 Blood pressure systolic 128 mm Hg 08/21/2024 Weight 290.2 lbs 08/21/2024 BMI 48.29 kg/m2 08/21/2024 Encounters Encounter Location Date Provider Diagnosis [address] [place] [address] 02/22/2024 Carlos Holley Exposure to potentia l infection Z20.9 ; Fatigue R53.83 ; Metabolic syndrome E88.810 ; Hepatitis C virus infection without hepatic coma, unspecified chronicity B19.20 and Hyperlipemia E78.[address] [place] [address] 10/14/2023 Mayco Leal Opioid use disorder, severe F11.20 ; Tooth abscess K04.7 ; Morbid obesity E66.01 ; Nutritional counseling Z71.3 and Nicotine dependence, unspecified, uncomplicated F17.[address] [place] [address] 10/14/2023 [facility] [address] [address] 11/15/2023 Mar Szlufik Opioid use disorder, severe F11.20 ; Nicotine dependence, unspecified, uncomplicated F17.200 ; Morbid obesity E66.01 and Nutritional counseling Z71.[address] [address] 11/15/[address] [address] 12/05/2023 Laure Tanwangco Nausea R11.0 ; Pyelonephritis N12 and Nicotine dependence, unspecified, uncomplicated F17.[address] [address] 12/16/2023 Mayco Leal Opioid use disorder F11.99 ; Morbid obesity E66.01 ; Nutritional counseling Z71.3 and Nicotine dependence, unspecified, uncomplicated F17.[address] [address] 12/16/2023 [facility] [address] [address] 01/16/2024 Mar Szlufik Opioid use disorder F11.99 ; Nicotine dependence, unspecified, uncomplicated F17.200 ; Nutritional counseling Z71.3 and Obesity, morbid, BMI 40.0-49.[address] [address] 01/16/2024 [facility] [address] 02/16/2024 Mar Eason Nicotine dependence, unspecified, uncomplicated F17.200 ; Opioid use disorder F11.99 ; Obesity, morbid, BMI 40.0-49.9 E66.01 and Nutritional counseling Z71.[address] [address] 02/16/2024 Kimberly Ac [address] [address] 02/22/2024 Carlos Holley Fatigue R53.83 ; Hepatitis C virus infection without hepatic coma, unspecified chronicity B19.20 ; Opioid use disorder, severe F11.20 ; Schizoaffective disorder F25.9 ; Metabolic syndrome E88.810 ; Hyperlipemia E78.5 ; Nicotine dependence, unspecified, uncomplicated F17.200 ; Edema of both legs R60.0 ; Exposure to potential infection Z20.9 ; Nutritional counseling Z71.3 ; Obesity, morbid, BMI 40.0-49.9 E66.01 and Dental infection K04.[address] [address] 03/20/2024 Stevie Otero Opioid use disorder F11.99 ; Obesity, morbid, BMI 40.0-49.9 E66.01 ; Tobacco use disorder F17.200 and Insomnia, unspecified type G47.[address] [address] 04/17/2024 Mar Eason Opioid use disorder F11.99 ; Obesity, morbid, BMI 40.0-49.9 E66.01 ; Tobacco use disorder F17.200 and Nutritional counseling Z71.[address] [address] 05/18/2024 Mayco Leal Opioid use disorder F11.99 ; Insomnia, unspecified type G47.00 ; Obesity, morbid, BMI 40.0-49.9 E66.01 ; Nutritional counseling Z71.3 and Nicotine dependence, unspecified, uncomplicated F17.[address] [facility] [address] 07/19/2024 Carlos Holley Opioid use disorder F11.[address] [address] 08/21/2024 Mar Eason Opioid use disorder F11.[address] [address] 10/10/[address] [address] 10/11/[address] [address] 01/05/2024 Kimberly Ac [address] [address] 04/27/2024 Carlos Holley Exposure to potentia l infection Z20.9 ; Fatigue R53.83 ; Hyperlipemia E78.5 and Metabolic syndrome E88.[address] [address] 05/18/2024 Nciole Martinez Opioid use disorder F11.[address] [address] 05/22/2024 Mayco Leal Opioid use disorder F11.[address] [address] 08/21/2024 Mar Eason Assessments Encounter Date Diagnosis (ICD Code) Assessment Notes Treatment Notes Treatment Clinical Notes Section Notes 10/14/2023 Tooth abscess (ICD-10 - K04.7) 10/14/2023 Opioid use disorder, severe (ICD-10 - F11.20) 11/15/2023 Nicotine dependence, unspecified, uncomplicated (ICD-10 - F17.200) 11/15/2023 Opioid use disorder, severe (ICD-10 - F11.20) 12/05/2023 Nausea (ICD-10 - R11.0) 12/05/2023 Pyelonephritis (ICD-10 - N12) Kidney Infection: Care Instructions material was printed 12/16/2023 Morbid obesity (ICD-10 - E66.01) 12/16/2023 Opioid use disorder (ICD-10 - F11.99) 01/16/2024 Nicotine dependence, unspecified, uncomplicated (ICD-10 - F17.200) 01/16/2024 Opioid use disorder (ICD-10 - F11.99) 02/16/2024 Nicotine dependence, unspecified, uncomplicated (ICD-10 - F17.200) 02/16/2024 Opioid use disorder (ICD-10 - F11.99) 02/22/2024 Fatigue (ICD-10 - R53.83) 02/22/2024 Hepatitis C virus infection without hepatic coma, unspecified chronicity (ICD-10 - B19.20) 02/22/2024 Exposure to potential infection (ICD-10 - Z20.9) 03/20/2024 Obesity, morbid, BMI 40.0-49.9 (ICD-10 - E66.01) 03/20/2024 Opioid use disorder (ICD-10 - F11.99) 04/17/2024 Obesity, morbid, BMI 40.0-49.9 (ICD-10 - E66.01) 04/17/2024 Opioid use disorder (ICD-10 - F11.99) 04/27/2024 Exposure to potential infection (ICD-10 - Z20.9) 05/18/2024 Insomnia, unspecified type (ICD-10 - G47.00) 05/18/2024 Opioid use disorder (ICD-10 - F11.99) 05/18/2024 Opioid use disorder (ICD-10 - F11.99) 05/22/2024 Opioid use disorder (ICD-10 - F11.99) 07/19/2024 Opioid use disorder (ICD-10 - F11.99) 08/21/2024 Opioid use disorder (ICD-10 - F11.99) 03/20/2024 Tobacco use disorder (ICD-10 - F17.200) 05/18/2024 Obesity, morbid, BMI 40.0-49.9 (ICD-10 - E66.01) 04/27/2024 Fatigue (ICD-10 - R53.83) 04/17/2024 Tobacco use disorder (ICD-10 - F17.200) 02/22/2024 Fatigue (ICD-10 - R53.83) 02/22/2024 Opioid use disorder, severe (ICD-10 - F11.20) 01/16/2024 Nutritional counseling (ICD-10 - Z71.3) 02/16/2024 Obesity, morbid, BMI 40.0-49.9 (ICD-10 - E66.01) 12/16/2023 Nutritional counseling (ICD-10 - Z71.3) 10/14/2023 Morbid obesity (ICD-10 - E66.01) 12/05/2023 Nicotine dependence, unspecified, uncomplicated (ICD-10 - F17.200) 11/15/2023 Morbid obesity (ICD-10 - E66.01) 11/15/2023 Nutritional counseling (ICD-10 - Z71.3) 10/14/2023 Nutritional counseling (ICD-10 - Z71.3) 12/16/2023 Nicotine dependence, unspecified, uncomplicated (ICD-10 - F17.200) 01/16/2024 Obesity, morbid, BMI 40.0-49.9 (ICD-10 - E66.01) 02/16/2024 Nutritional counseling (ICD-10 - Z71.3) 02/22/2024 Schizoaffective disorder (ICD-10 - F25.9) CONTINUE ATTEMPTING TO SCHEDULE PSYCH APPT 02/22/2024 Metabolic syndrome (ICD-10 - E88.810) 03/20/2024 Insomnia, unspecified type (ICD-10 - G47.00) 04/27/2024 Hyperlipemia (ICD-10 - E78.5) 04/17/2024 Nutritional counseling (ICD-10 - Z71.3) 05/18/2024 Nutritional counseling (ICD-10 - Z71.3) 04/27/2024 Metabolic syndrome (ICD-10 - E88.810) 05/18/2024 Nicotine dependence, unspecified, uncomplicated (ICD-10 - F17.200) 02/22/2024 Metabolic syndrome (ICD-10 - E88.810) 02/22/2024 Hepatitis C virus infection without hepatic coma, unspecified chronicity (ICD-10 - B19.20) 10/14/2023 Nicotine dependence, unspecified, uncomplicated (ICD-10 - F17.200) 02/22/2024 Hyperlipemia (ICD-10 - E78.5) 02/22/2024 Hyperlipemia (ICD-10 - E78.5) 02/22/2024 Nicotine dependence, unspecified, uncomplicated (ICD-10 - F17.200) 02/22/2024 Edema of both legs (ICD-10 - R60.0) LOW SALT DIET, INCREASE ACTIVITY, LEG ELEVATION WHILE RESTING 02/22/2024 Exposure to potential infection (ICD-10 - Z20.9) 02/22/2024 Nutritional counseling (ICD-10 - Z71.3) 02/22/2024 Obesity, morbid, BMI 40.0-49.9 (ICD-10 - E66.01) 02/22/2024 Dental infection (ICD-10 - K04.7) STOP CEPHALEXIN, CONTIN NITROFURANTOIN 10/14/2023 Other Learning About the Safe Use of Antibiotics material was discussed. Pt was educated on use of antibiotic medication including dosing, side effects, adverse effects and anticipated response. Pt was also educated on importance of completing full course of treatment as ordered. Patient voiced understanding of all. Potential side effects of buprenorphine discussed, as well as taking buprenorphine as prescribed. Dangers of using other controlled substances (prescribed or illegal/including benzodiazepines) with buprenorphine discussed. Patient understands taking other narcotics with buprenorphine could lead to respiratory distress and even . Patient understands that ALL treating providers/physici ans should be informed of buprenorphine use as part of a Medication Assisted Treatment program 10/14/2023 Other Provided case management services to address social determinants of health needs and reduce barriers to health care services. 11/15/2023 Other Client agrees to take medication as prescribed. Discussed medication side effects, adverse effects, risks, benefits, as well as interactions. Encouraged non-use of opioids and other illicit substances. Has naloxone. Understand that discontinuing buprenorphine increases the risk of overdose upon return to illicit opioid use. Know that that use of alcohol or benzodiazepines with buprenorphine increases the risk of overdose and . Education provided about safe storage of medications. Encourage participation in recovery groups/counseling services. Contact office with questions or concerns. 11/15/2023 Other Provided case management services to address social determinants of health needs and reduce barriers to health care services. 12/05/2023 Other Learning About the Safe Use of Antibiotics material was discussed. Pt was provided with education regarding safe use of antibioitics, impacts of overuse of antibiotics, why antibiotics were not prescribed in this situation, and when to call the office for continued symptoms. At home treatments discussed based on symptoms. 12/16/2023 Other Potential side effects of buprenorphine discussed, as well as taking buprenorphine as prescribed. Dangers of using other controlled substances (prescribed or illegal/including benzodiazepines) with buprenorphine discussed. Patient understands taking other narcotics with buprenorphine could lead to respiratory distress and even . Patient understands that ALL treating providers/physici ans should be informed of buprenorphine use as part of a Medication Assisted Treatment program 12/16/2023 Other Provided case management services to address social determinants of health needs and reduce barriers to health care services. 01/16/2024 Other Client agrees to take medication as prescribed. Discussed medication side effects, adverse effects, risks, benefits, as well as interactions. Encouraged non-use of opioids and other illicit substances. Has naloxone. Understand that discontinuing buprenorphine increases the risk of overdose upon return to illicit opioid use. Know that that use of alcohol or benzodiazepines with buprenorphine increases the risk of overdose and . Education provided about safe storage of medications. Encourage participation in recovery groups/counseling services. Patient understands that all treating providers/physici ans should be informed of buprenorphine use as part of a Medication Assisted Recovery program. Contact office with questions or concerns. 01/16/2024 Other Provided case management services to address social determinants of health needs and reduce barriers to health care services. 02/16/2024 Other Client agrees to take medication as prescribed. Discussed medication side effects, adverse effects, risks, benefits, as well as interactions. Encouraged non-use of opioids and other illicit substances. Has naloxone. Understand that discontinuing buprenorphine increases the risk of overdose upon return to illicit opioid use. Know that that use of alcohol or benzodiazepines with buprenorphine increases the risk of overdose and . Education provided about safe storage of medications. Encourage participation in recovery groups/counseling services. Patient understands that all treating providers/physici ans should be informed of buprenorphine use as part of a Medication Assisted Recovery program. Contact office with questions or concerns. 02/16/2024 Other Provided case management services to address social determinants of health needs and reduce barriers to health care services. 02/22/2024 Other Learning About the Safe Use of Antibiotics material was discussed. Pt was educated on use of antibiotic medication including dosing, side effects, adverse effects and anticipated response. Pt was also educated on importance of completing full course of treatment as ordered. Patient voiced understanding of all. REVIEWED [facility] ED 02/19 CT A/P, CXR, CBC, CMP (ALT 47), U/A (LOTS OF EPITHELIAL CELLS WITH TRACE BACTERIA). 03/20/2024 Other Discussed medication side effects, adverse effects, risks, benefits, as well as interactions. Encouraged non-use of opioids. Has naloxone. Recommended participation in recovery groups/counseling services. Agrees to contact office with questions or concerns. 04/17/2024 Other Client agrees to take medication as prescribed. Discussed [...] services. Contact office with questions or concerns. 05/18/2024 Other Potential side effects of buprenorphine discussed, as well as taking buprenorphine as prescribed. Dangers of using other controlled substances (prescribed or illegal/including benzodiazepines) with buprenorphine discussed. Patient understands taking other narcotics with buprenorphine could lead to respiratory distress and even . Patient understands that ALL treating providers/physici ans should be informed of buprenorphine use as part of a Medication Assisted Treatment program 08/21/2024 Other Patient agrees to take medication [...] may self-administer their own oral medications per [facility] Protocol. Plan Of Treatment No Information Insurance Providers Payer Name Payer Address Payer Phone Subscriber Number Group Number Insured Name Patient Relationship to Insured Coverage Start Date Coverage End Date [facility] [address] [place] [phone] [id number] Yohana Mathis Self - patient is the insured [address] [employer] [address] [place] [address] [id number] Yohana Mathis Self - patient is the insured 0 4 Medical (General) History Medical History History ICD Code Opioid use disorder Hyperlipemia E78.5 Hx of hypothyroidism (not currently) sepsis (bi-lateral kidney) Surgical History Surgery Date(Month/Year) tonsillectomy 2009 Hospitalization History Reason Date(Month/Year) [facility] 11/2023 [facility] 10/2022 MRSA 04/09 child 2013
--- OUTSIDE RECORDS SUMMARY | 2024-09-19 18:20 | XMS_ITS | Clinical Summary ---
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
[2024-09-19 18:22] LABS: Trichomonas Vag PCR NOT DETECTED (NOT DETECTE)
[2024-09-19 18:45] LABS: Chlamydia trachomatis NOT DETECTED (NOT DETECTE); Neisseria gonorrhoeae PCR NOT DETECTED (NOT DETECTE)
[2024-09-19] MEDS: ACETAMINOPHEN 500 MG TABLET 1000 MG PO (19:39)
[2024-09-19 21:00] VITALS: BP 115/65; PULSE 82; RESP 20; TEMP 36.8; O2SAT 97
== END 2024-09-19 21:01 | disposition home or self-care (01) ==
LOC: ANHED 18:18
PROVIDERS: Emergency Medicine; Emergency Provider Physician Assistant
DX: M54.50 Low back pain, unspecified (principal); R10.30 Lower abdominal pain, unspecified; N83.202 Unspecified ovarian cyst, left side; F17.210 Nicotine dependence, cigarettes, uncomplicated; F41.9 Anxiety disorder, unspecified; F32.A Depression, unspecified
CPT/HCPCS: 36415; 72132; 74177; 76830; 80053; 81001; 81025; 83690; 85025; 87491; 87591; 87661; 96374; 99284; A9270; J2405; Q9967

== ENCOUNTER 2024-12-29 16:15 | Emergency (ER) | payer OTHER, SELFPAY ==
--- NOTE | 2024-12-29 16:20 | ED_ITS ---
HPI - Dental/Oral General Chief complaint: Dental/Oral Stated complaint: Dental Pain Time Seen by Provider: 12/29/24 16:19 Source: patient Mode of arrival: ambulatory Limitations: no limitations History of Present Illness HPI Narrative: Yohana is a 34 year old female patient presenting to the clinic today with c/o dental pain x 3 days. She reports she has chronic dental pain and gets multiple infections. Over the past 3 days she has developed swelling and pain over the left lower jaw. Has multiple broken/decayed teeth. History of drug abuse-meth, heroin, fentanyl. No fevers, chills, body aches. No drainage. Has taken Tylenol and ibuprofen for pain. Rates pain 5/10 currently but at its worse at the 03/29. Related Data Home Medications ?Medication ?Instructions ?Recorded ?Confirmed ?Last Taken ?Type buprenorphine 8 mg-naloxone 2 mg 1 film buccal TID 11/22/23 05/13/24 Unknown History sublingual film (Suboxone) quetiapine 50 mg tablet 50 mg PO HS 11/22/23 05/13/24 Unknown History Allergies Allergy/AdvReac Type Severity Reaction Status Date / Time amoxicillin (From Augmentin) Allergy Mild Hypertensio Verified 12/29/24 16:28 n clavulanic acid (From Allergy Mild Hypertensio Verified 12/29/24 16:28 Augmentin) n Review of Systems Review of Systems: Pertinent positives per HPI. Patient denies any fever, chills, rash, headache, visual changes, dizziness, cough, shortness of breath, chest pain, palpitations, nausea, vomiting, diarrhea, constipation, abdominal pain, or any urinary issues. PMF Past Medical History Medical History Schizophrenia ?? Irritable bowel syndrome HPV (human papilloma virus) anogenital infection Cervical dysplasia Hepatitis C Intravenous drug abuse in remission Patient used IV methamphetamines, heroin, fentanyl, prescription narcotics and smoked methamphetamines in the past. She entered rehab in October of 2022. Morbid obesity Anxiety and depression Surgical History Surgical History History of tonsillectomy and adenoidectomy Family History Family History Grandparent Pancreatic cancer Social History Social History Social History: Patient lives at home with her 10-year-old son and her grandmother and grandfather. She was raised by her grandparents after her father overdosed and her mother committed suicide. Her son is 10 years old (as of November 2023). She has smoked 1-2 packs cigarettes per day since she was in her early teens. She does drink alcohol on occasion. She has a long history of polysubstance abuse. She started smoking and injecting meth at 21 and then in her mid 20s transition to combination of meth and fentanyl. She still smokes marijuana somewhat regularly. Code status: Full code Surrogate decision maker: Joseph Briceñosonali Smoking packs per day: 2 Smoking cigarettes per day: 40.0 Years smoked: 15 Smoking pack-years: 30.00 Smoking status: Current every day smoker Tobacco type: cigarettes Alcohol intake: current Substance use: current Substance use type: marijuana, heroin, opiates, IV drugs and methamphetamine Other substance usage details: Patient has used a combination of meth, fentanyl/opiates in various forms Last use: October 2022 Do You Feel Safe in your Home?: Yes Lack of Transportation: No Lack of Food: Sometimes True Current Housing: I Have Housing Concerned About Future Housing: No Difficulty Paying Gas/Electric Bills: No Difficulty Paying for Meds: No Currently Unemployed: No Education: High School Diploma/GED Difficulty w/ Childcare or Family Care: No Occupation/Education: occupation Additional occupation/education comments: She works in a [employer] Spiritual care concerns: No Comments At the time of my signature, I reviewed and agree with the nursing past medical, surgical, social, and family history. There is no relevant family history pertinent to the patient complaint. Exam Narrative: General: Well-developed, morbidly obese, in no apparent distress Head: Normocephalic, atraumatic Eyes: Pupils equally round and reactive to light bilaterally, EOM intact, sclera and conjunctive clear, no discharge, lids normal Ears: TMs intact and clear, ear canals clear, no drainage, grossly hearing normal. Nose: Nares patent, no discharge, no inflammation, no sinus tenderness. Mouth: Oral pharynx without lesions or masses, very poor dentition with multiple missing teeth, broken decayed teeth, MMM. Swelling to the left lower jaw with tenderness to palpation without fluctuance, no visualized abscess inside mouth. Neck: Supple, trachea midline, no enlargement of anterior or posterior cervical nodes, no thyroid masses or goiter palpable. Cardio: Regular rate and rhythm, s1 and s2 normal, no murmur appreciated. Resp: Clear to auscultation bilaterally, no rhonchi, rales, wheezing or rubs Course Course Emergency Course: Portions of this record may have been created with voice recognition software. Level of Care: Express Care Visit Vital Signs Vital signs: Vital Signs Temperature 36.4 C 12/29/24 16:21 Pulse Rate 73 12/29/24 16:21 Respiratory Rate 22 H 12/29/24 16:21 Blood Pressure 125/70 12/29/24 16:21 Pulse Oximetry 100 12/29/24 16:21 Oxygen Delivery Room Air 12/29/24 16:21 Temperature 36.4 C 12/29/24 16:21 Pulse Rate 73 12/29/24 16:21 Respiratory Rate 22 H 12/29/24 16:21 Blood Pressure 125/70 12/29/24 16:21 Pulse Oximetry 100 12/29/24 16:21 Oxygen Delivery Room Air 12/29/24 16:21 Vital signs reviewed MDM - Dental/Oral MDM Narrative Medical decision making narrative: At the time of visit patient is resting comfortably on the exam table. Patient appears to be nontoxic. Patient is here concerns for dental abscess. No obvious sign of dental abscess but does have lower jaw swelling and pain. No fluctuance. She denies any fevers, chills, or body aches. No drainage coming from the area. Has multiple decayed/broken teeth and several missing teeth. History of meth, heroin, and fentanyl use. Plan: I suspect patient has a dental infection to the left lower jaw. Prescription for clindamycin was sent to the pharmacy. Patient reports she gets yeast infections with antibiotics so we will also send over some Diflucan. Patient is on quetiapine. Was instructed to hold this medication as she has taken Diflucan as this can cause a QT prolongation. Supportive measures were discussed with the patient and they voiced understanding discharge instructions and agrees to treatment plan. Return precautions reviewed Differential Diagnosis Differential diagnosis: Likely gingival abscess, dental caries, toothache, dental abscess, fracture of tooth and aphthous ulcer Discharge Plan Discharge Clinical Impression: Dental infection Patient Disposition: Home Condition: Stable Instructions: Antibiotic Form, Dental Abscess (ED) Additional Instructions: Take medications as prescribed-clindamycin and Diflucan Hold taking your quetiapine if your taking Diflucan as this can cause QT prolongation (irregular heart rhythm). May take probiotic daily-take 2 hours before or 2 hours after taking 1 of the antibiotic doses Increase fluids and stay well hydrated May take Tylenol/Motrin as needed for pain or fever May apply Orajel to the affected area to help alleviate pain May apply warm or cool compress to the affected area to help alleviate pain Follow-up with your dentist as soon as possible Patient Language: Mongolian Prescriptions: New clindamycin HCl [Cleocin HCl] 300 mg capsule 300 mg PO Q8H 10 Days Qty: 30 0RF fluconazole 150 mg tablet 150 mg PO ONCE Qty: 2 0RF Rx Instructions: as a single dose. May repeat in 72 hours if needed. No Action (DME) Aerochamber MV Spacer See Rx Instructions .Route Qty: 1 0RF Rx Instructions: As directed quetiapine 50 mg tablet 50 mg PO HS buprenorphine-naloxone [Suboxone] 8-2 mg Film 1 film BUCCAL TID ondansetron 4 mg tablet,disintegrating 4 mg PO TID PRN (Reason: nausea and vomiting) Qty: 15 0RF ondansetron 4 mg tablet,disintegrating 4 mg PO Q8H PRN (Reason: nausea and vomiting) Qty: 15 0RF Follow-up/Referrals: PHYSICIAN,MACHINE LOAD CLERK [Primary Care Provider] - Time of Disposition: 16:29 Quality NIHSS Nursing Documentation ED NIHSS nursing documentation: reviewed/agree
[2024-12-29 16:21] VITALS: BP 125/70; PULSE 73; RESP 22; TEMP 36.4; O2SAT 100
== END 2024-12-29 16:38 | disposition home or self-care (01) ==
PROVIDERS: Emergency Provider Nurse Practitioner Family
DX: K04.7 Periapical abscess without sinus (principal); F17.210 Nicotine dependence, cigarettes, uncomplicated; F12.90 Cannabis use, unspecified, uncomplicated; E66.01 Morbid (severe) obesity due to excess calories; Z68.42 Body mass index [BMI] 45.0-49.9, adult
CPT/HCPCS: 99213; G0463

== ENCOUNTER 2025-02-21 18:15 | Emergency (ER) | payer OTHER, SELFPAY ==
--- NOTE | 2025-02-21 18:19 | ED.URI ---
HPI - URI/Sore Throat General Stated Complaint: LT [facility] [place] [facility] / Cold Like Time Seen by Provider: 02/21/25 18:18 Source: patient Mode of arrival: ambulatory Limitations: no limitations Related Data Home Medications ?Medication ?Instructions ?Recorded ?Confirmed ?Last Taken ?Type buprenorphine 8 mg-naloxone 2 mg 1 film buccal TID 11/22/23 05/13/24 Unknown History sublingual film (Suboxone) quetiapine 50 mg tablet 50 mg PO HS 11/22/23 05/13/24 Unknown History Allergies Allergy/AdvReac Type Severity Reaction Status Date / Time amoxicillin (From Augmentin) Allergy Mild Hypertensio Verified 12/29/24 16:28 n clavulanic acid (From Allergy Mild Hypertensio Verified 12/29/24 16:28 Augmentin) n Review of Systems Review of Systems: All systems reviewed & are unremarkable except as noted in HPI and below Constitutional: Constitutional: Denies chills, Denies fatigue, Denies fever(s), Denies headache(s), Denies malaise and Denies weakness Eyes: Eyes: Denies blurry vision, Denies itchy eyes and Denies loss of vision ENT: Denies otalgia, Denies headache(s), Reports nasal congestion, Denies sinus pain and Denies sore throat Cardiovascular: Cardiovascular: Denies chest pain, Denies irregular heart rhythm and Denies dyspnea Respiratory: Respiratory: Reports cough and Denies dyspnea Gastrointestinal: Gastrointestinal: Denies abdominal pain, Denies diarrhea, Denies nausea and Denies vomiting Musculoskeletal: Musculoskeletal: Denies back pain, Denies myalgias and Denies arthralgias Integumentary/Breasts: Skin/Breast: Denies pruritus and Denies rash Neurologic: Denies headache(s), Denies loss of vision and Denies weakness Psychiatric: Psychiatric: Reports no additional psychiatric complaints Endocrine: Endocrine: Denies fatigue Allergic/Immunologic: Allergic/Immunologic: Denies itchy eyes PMFSH Past Medical History Medical History Schizophrenia ?? Irritable bowel syndrome HPV (human papilloma virus) anogenital infection Cervical dysplasia Hepatitis C Intravenous drug abuse in remission Patient used IV methamphetamines, heroin, fentanyl, prescription narcotics and smoked methamphetamines in the past. She entered rehab in October of 2022. Morbid obesity Anxiety and depression Surgical History Surgical History History of tonsillectomy and adenoidectomy Family History Family History Grandparent Pancreatic cancer Social History Social History Social History: Patient lives at home with her 10-year-old son and her grandmother and grandfather. She was raised by her grandparents after her father overdosed and her mother committed suicide. Her son is 10 years old (as of November 2023). She has smoked 1-2 packs cigarettes per day since she was in her early teens. She does drink alcohol on occasion. She has a long history of polysubstance abuse. She started smoking and injecting meth at 21 and then in her mid 20s transition to combination of meth and fentanyl. She still smokes marijuana somewhat regularly. Code status: Full code Surrogate decision maker: Sánchezwoody Briceñosonali Smoking packs per day: 2 Smoking cigarettes per day: 40.0 Years smoked: 15 Smoking pack-years: 30.00 Smoking status: Current every day smoker Tobacco type: cigarettes Alcohol intake: current Substance use: current Substance use type: marijuana, heroin, opiates, IV drugs and methamphetamine Other substance usage details: Patient has used a combination of meth, fentanyl/opiates in various forms Last use: October 2022 Do You Feel Safe in your Home?: Yes Lack of Transportation: No Lack of Food: Sometimes True Current Housing: I Have Housing Concerned About Future Housing: No Difficulty Paying Gas/Electric Bills: No Difficulty Paying for Meds: No Currently Unemployed: No Education: High School Diploma/GED Difficulty w/ Childcare or Family Care: No Occupation/Education: occupation Additional occupation/education comments: She works in a [employer] Spiritual care concerns: No Comments At time of signature, agree with nursing past medical, surgical, social and family history. There is no relevant family history pertinent to the presenting complaint. Exam Const: General: cooperative, healthy appearing, comfortable, no acute distress and well nourished Nutritional Appearance: well nourished Orientation/consciousness: patient oriented x3 Limitations: no limitations HENMT: Head: normal to inspection, normocephalic and atraumatic Ears: hearing grossly normal bilaterally, external ears normal, TM's normal bilaterally, EAC's normal and no periauricular adenopathy Face/Nose/Sinus: Normal external nose present, Abnormal mucous membranes and turbinates present erythematous bilateral and diffuse, normal facial exam, sinuses nontender and face symmetric Face and sinus: normal facial exam, sinuses nontender and face symmetric Mouth: Yes Normal oral and palatal mucosa present, Yes lip normal, Yes tongue normal, Yes Normal salivary glands and ducts present, Yes oropharynx normal and Yes moist mucous membranes Teeth and gingiva: dentition normal Throat: posterior oropharynx normal, tonsils normal and uvula midline Eyes: General: appearance normal, both eyes and all related structures Alignment and Position: alignment normal and position normal Periorbital: periorbital findings normal Eyelids: eyelids normal Pupils: Equal, round and reactive pupils present Neck: Neck: normal visual inspection, full ROM, no lymphadenopathy and supple Chest: Chest palpation & inspection: normal inspection of the chest and normal palpation of entire chest wall Resp: Effort & Inspection: normal respiratory effort and able to speak in complete sentences Auscultation: clear to auscultation bilaterally, no crackles, no rales, no rhonchi and no wheezes Cardio: Rate: regular rate Rhythm: regular rhythm Heart sounds: S1 normal heart sound present and S2 normal heart sound present GI: Inspection: normal to inspection Skin: General skin exam: normal color and no rashes or lesions noted Neuro: General: patient oriented x3 and moves all extremities Cranial nerves: Yes Equal, round and reactive pupils present Speech: normal speech Gait exam (Neuro): Normal gait present Extrem: General: normal to inspection, full ROM and no edema Psych: Appearance: grossly normal and well kempt Mental Status: mental status grossly normal Speech and movement: Normal speech and movement present Affect: normal affect Attitude: cooperative Thought process: Normal thought process present Course Course Emergency Course: Discharge instructions reviewed with patient, as well as provided in writing per nursing staff. The instructions also include specific and strict return/GO TO THE ER as well as f/u information. All questions have been answered, and the patient deny any further questions with discharge and discharge plan. Portions of this record may have been created with voice recognition software Level of Care: Express Care Visit Vital Signs Vital signs: Reviewed MDM - URI/Sore Throat MDM Narrative Medical decision making narrative: Pt well hydrated appearing, in no respiratory distress, hemodynamically stable. Recommend supportive care. The patient is stable at time of discharge the clinical impression was discussed and the patient was given the opportunity to ask questions, which were addressed as completely as possible given the information available at present. Anticipatory guidance and return to care precautions were discussed and the importance of primary care follow-up was stressed and encouraged. The patient voiced understanding of the plan, indications to return, and the need for follow-up. Exam findings show no acute concerns or changes Patient is appropriate for outpatient treatment and follow-up. Differential diagnosis considered: Infante virus, strep pharyngitis, allergic rhinitis, upper respiratory tract infection, sinusitis, rhinosinusitis, nasopharyngitis. viral pharyngitis, otitis media, otitis externa, otitis effusion, foreign body, cerumen impaction, viral syndrome, and influenza.? Medical Records Attestation: I reviewed the patient's medical records. Lab Data Attestation: I reviewed the patient's lab results. Discharge Plan Discharge Patient Language: Chadian Prescriptions: No Action (DME) Aerochamber MV Spacer See Rx Instructions .Route Qty: 1 0RF Rx Instructions: As directed quetiapine 50 mg tablet 50 mg PO HS buprenorphine-naloxone [Suboxone] 8-2 mg Film 1 film BUCCAL TID ondansetron 4 mg tablet,disintegrating 4 mg PO TID PRN (Reason: nausea and vomiting) Qty: 15 0RF clindamycin HCl [Cleocin HCl] 300 mg capsule 300 mg PO Q8H 10 Days Qty: 30 0RF fluconazole 150 mg tablet 150 mg PO ONCE Qty: 2 0RF Rx Instructions: as a single dose. May repeat in 72 hours if needed. ondansetron 4 mg tablet,disintegrating 4 mg PO Q8H PRN (Reason: nausea and vomiting) Qty: 15 0RF Follow-up/Referrals: PHYSICIAN,SUBSTATION MANAGER [Primary Care Provider, Internal Medicine]
[2025-02-21 18:20] VITALS: BP 126/74; PULSE 87; RESP 16; TEMP 36.6; O2SAT 99
--- NOTE | 2025-02-21 18:49 | ED_ITS ---
HPI - Eye Problem General Chief complaint: Eye Problems Stated complaint: LT [facility] / Cold Like Time Seen by Provider: 02/21/25 18:18 Source: patient Mode of arrival: ambulatory Limitations: no limitations History of Present Illness HPI Narrative: Patient is a 34-year-old female who presents with left eye itching with yellow discharge for 2 days. Wears glasses. Denies any fever, chills, nausea, vomiting, diarrhea. Related Data Home Medications ?Medication ?Instructions ?Recorded ?Confirmed ?Last Taken ?Type buprenorphine 8 mg-naloxone 2 mg 1 film buccal TID 10/1105/13/24 Unknown History sublingual film (Suboxone) Allergies Allergy/AdvReac Type Severity Reaction Status Date / Time amoxicillin (From Augmentin) Allergy Mild Hypertensio Verified 02/21/25 18:25 n clavulanic acid (From Allergy Mild Hypertensio Verified 02/21/25 18:25 Augmentin) n Review of Systems Review of Systems: All systems reviewed & are unremarkable except as noted in HPI and below Constitutional: Constitutional: Denies body ache(s), Denies fever(s), Denies headache(s), Denies malaise and Denies weakness Eyes: Eyes: Denies blurry vision, Reports eye discharge, Reports irritation, Reports itchy eyes, Denies loss of vision and Denies eye pain ENT: Denies otalgia, Denies headache(s), Denies nasal discharge, Denies sinus pain and Denies sore throat Cardiovascular: Cardiovascular: Denies chest pain, Denies irregular heart rhythm and Denies dyspnea Respiratory: Respiratory: Denies dyspnea Gastrointestinal: Gastrointestinal: Denies abdominal pain, Denies diarrhea, Denies nausea and Denies vomiting Musculoskeletal: Musculoskeletal: Denies back pain, Denies myalgias and Denies arthralgias Integumentary/Breasts: Skin/Breast: Denies pruritus and Denies rash Neurologic: Denies headache(s), Denies loss of vision and Denies weakness Psychiatric: Psychiatric: Reports no additional psychiatric complaints Allergic/Immunologic: Allergic/Immunologic: Reports itchy eyes PMFSH Past Medical History Medical History Schizophrenia ?? Irritable bowel syndrome HPV (human papilloma virus) anogenital infection Cervical dysplasia Hepatitis C Intravenous drug abuse in remission Patient used IV methamphetamines, heroin, fentanyl, prescription narcotics and smoked methamphetamines in the past. She entered rehab in October of 2022. Morbid obesity Anxiety and depression Surgical History Surgical History History of tonsillectomy and adenoidectomy Family History Family History Grandparent Pancreatic cancer Social History Social History Social History: Patient lives at home with her 10-year-old son and her grandmother and grandfather. She was raised by her grandparents after her father overdosed and her mother committed suicide. Her son is 10 years old (as of November 2023). She has smoked 1-2 packs cigarettes per day since she was in her early teens. She does drink alcohol on occasion. She has a long history of polysubstance abuse. She started smoking and injecting meth at 21 and then in her mid 20s transition to combination of meth and fentanyl. She still smokes marijuana somewhat regularly. Code status: Full code Surrogate decision maker: Joseph Briceñosonali Smoking packs per day: 2 Smoking cigarettes per day: 40.0 Years smoked: 15 Smoking pack-years: 30.00 Smoking status: Current every day smoker Tobacco type: cigarettes Alcohol intake: current Substance use: current Substance use type: marijuana, heroin, opiates, IV drugs and methamphetamine Other substance usage details: Patient has used a combination of meth, fentanyl/opiates in various forms Last use: October 2022 Do You Feel Safe in your Home?: Yes Lack of Transportation: No Lack of Food: Sometimes True Current Housing: I Have Housing Concerned About Future Housing: No Difficulty Paying Gas/Electric Bills: No Difficulty Paying for Meds: No Currently Unemployed: No Education: High School Diploma/GED Difficulty w/ Childcare or Family Care: No Occupation/Education: occupation Additional occupation/education comments: She works in a [employer] Spiritual care concerns: No Comments At time of signature, agree with nursing past medical, surgical, social and family history. There is no relevant family history pertinent to the presenting complaint. Exam Const: General: cooperative, healthy appearing, comfortable, no acute distress and well nourished Nutritional Appearance: well nourished Orientation/consciousness: patient oriented x3 Limitations: no limitations HENMT: Head: normal to inspection, normocephalic and atraumatic Ears: external ears normal Face/Nose/Sinus: Normal external nose present, normal facial exam and face symmetric Face and sinus: normal facial exam and face symmetric Mouth: Yes lip normal Eyes: General: appearance normal, both eyes and all related structures Visual Winn: normal visual winn by confrontation Alignment and Position: alignment normal and position normal Periorbital: periorbital findings normal Eyelids: eyelids normal Conjunctivae: conjunctival abnormality left conjunctival injection diffuse and discharge mucoid Sclera: scleral abnormal ity left scleral injection diffuse Pupils: Equal, round and reactive pupils present EOM: EOMs intact bilaterally Direct Ophthalmoscopy: no photophobia Other: No hyphema, no foreign body under the lids. Neck: Neck: normal visual inspection, full ROM, no lymphadenopathy and no meningeal signs Chest: Chest palpation & inspection: normal inspection of the chest Resp: Effort & Inspection: normal respiratory effort and able to speak in complete sentences Auscultation: clear to auscultation bilaterally Cardio: Rate: regular rate Rhythm: regular rhythm Heart sounds: S1 normal heart sound present and S2 normal heart sound present GI: Inspection: normal to inspection Skin: General skin exam: normal color and no rashes or lesions noted Neuro: General: patient oriented x3, moves all extremities and no meningeal signs Cranial nerves: Yes Equal, round and reactive pupils present Speech: normal speech Gait exam (Neuro): Normal gait present Extrem: General: normal to inspection, full ROM and no edema Psych: Appearance: grossly normal and well kempt Mental Status: mental status grossly normal Speech and movement: Normal speech and movement present Affect: normal affect Attitude: cooperative Thought process: Normal thought process present Course Course Emergency Course: Patient is aware of diagnosis, understands and agrees to treatment plan. Anticipatory guidance given. Patient agrees to follow-up as directed and is aware of reasons to seek care at the emergency department. Portions of this record may have been created with voice recognition software Level of Care: Express Care Visit Vital Signs Vital signs: Vital Signs Temperature 36.6 C 02/21/25 18:20 Pulse Rate 87 02/21/25 18:20 Respiratory Rate 16 02/21/25 18:20 Blood Pressure 126/74 02/21/25 18:20 Pulse Oximetry 99 02/21/25 18:20 Oxygen Delivery Room Air 02/21/25 18:20 Temperature 36.6 C 02/21/25 18:20 Pulse Rate 87 02/21/25 18:20 Respiratory Rate 16 02/21/25 18:20 Blood Pressure 126/74 02/21/25 18:20 Pulse Oximetry 99 02/21/25 18:20 Oxygen Delivery Room Air 02/21/25 18:20 Reviewed MDM - Eye Problem MDM Narrative Medical decision making narrative: Exam findings show no acute concerns or changes; patient is non-toxic appearing and is in no distress.? Patient is appropriate for outpatient treatment and follow-up Discharge instructions reviewed with patient and family, as well as provided in writing per nursing staff. The instructions also include specific and strict return/GO TO THE ER as well as f/u information. All questions have been answered, and the patient deny any further questions with discharge and discharge plan. Consideration of the following conditions may be warranted for the presenting problem, they are not final diagnoses: Bacterial conjunctivitis, allergic conjunctivitis, viral conjunctivitis, foreign body, blepharitis, chalazion, hordeolum, corneal abrasion. Differential Diagnosis Differential diagnosis: Likely corneal abrasion, conjunctivitis and periorbital cellulitis Medical Records Attestation: I reviewed the patient's medical records. Discharge Plan Discharge Clinical Impression: Bacterial conjunctivitis Patient Disposition: Home Condition: Stable Instructions: Conjunctivitis (ED) Additional Instructions: Eye drops as prescribed. -Do this for 3 to 4 days until all redness and discharge has disappeared. -Cold compresses to the affected eye for comfort -May need warm compresses to remove debris in the morning -When cleaning the eyes used a washcloth/cotton ball in one direction then change washcloths/cotton ball before using it on another eye. -Do not share medicine--do not touch the eye with the medicine -Alternate or take Tylenol or ibuprofen as directed in the bottle for pain -Avoid screen time--television, computer, tablet or phone. -Practice good handwashing and hygiene to prevent spread of infection Follow-up with PCP or representative government relations if condition is not improving in 2-3days. Go to the emergency room if you have pain behind your eye, pressure behind her eye, difficulty seeing, or other severe symptoms Patient Language: Maldivian Prescriptions: New ofloxacin 0.3 % drops See Rx Instructions .ROUTE .COMPLEX Qty: 10 0RF Rx Instructions: put 1-2 drps into left eye every 2-4 h x 2 days, then 1-2 drps 4 times/day days 3-7 No Action (DME) Aerochamber MV Spacer See Rx Instructions .Route Qty: 1 0RF Rx Instructions: As directed buprenorphine-naloxone [Suboxone] 8-2 mg Film 1 film BUCCAL TID Follow-up/Referrals: Vanesa Nelson DO [Physician, Family Practice] - 3 Days Stand Alone Forms: Work/School Release IP Time of Disposition: 18:54
== END 2025-02-21 19:04 | disposition home or self-care (01) ==
PROVIDERS: Emergency Provider Nurse Practitioner Family
DX: H10.9 Unspecified conjunctivitis (principal); F17.210 Nicotine dependence, cigarettes, uncomplicated; N87.9 Dysplasia of cervix uteri, unspecified; E66.01 Morbid (severe) obesity due to excess calories; Z68.42 Body mass index [BMI] 45.0-49.9, adult
CPT/HCPCS: 99213; G0463

== ENCOUNTER 2025-03-21 16:40 | Outpatient (CLI) | payer OTHER, SELFPAY ==
--- OUTSIDE RECORDS SUMMARY | 2025-02-26 08:20 | XMS_ITS ---
Author Organization [facility] Address [address] [place] [address] Care Team Providers Care Client Support Analyst Name Role Phone Laure Fernandez Primary Care Provider Carlos Holley [phone] REASON FOR VISIT last appt 02/22/24- needs 40 mins Social History Sex Assigned At : Social History Observation Description Sex Assigned At Female Encounters Encounter Location Date Provider Diagnosis [address] [address] 02/26/2025 Carlos Holley Plan Of Treatment Next Appt Details Provider Name:Jammie Disla, 03/27/2025 01:00:00 PM, [address], [place], [address], Progress Notes * Adonis MATHISHarshadOB:1990 (34 yo F)Acc No.[id number]:02/26/2025 UNLOCKED PROGRESS NOTE Progress Notes Patient: Yohana SUTTON Provider: Cherrie Holley :1990 A ge:34 Y S ex:Female Date:02/26/2025 Phone: Address:[facility] [place], [place] Pcp:Laure Fernandez Subjective: * Chief Complaints: * 1 . Last appt 02/22/24- needs 40 mins. * Medical History: Objective: * Vitals: Assessment: Plan: * Treatment: * * Electronic signature of Aries Holley , [id number] on 03/21/2025 at 04:49 PM CDT Sign off status: Pending * Provider: Cherrie Holley Date: 0 02/26/2025 Generated for Agustina ware/Angelique/Leora on: 1 04:49 PM CDT
--- NOTE | ~2025-03-21 | US_ITS ---
EXAMINATION: US venous doppler [facility], 03/21/2025 17:05 CDT HISTORY: Bilateral leg edema COMPARISON: None Technique: Joya-scale and color Doppler images were attempted of the lower saphenofemoral junction, common femoral vein,superficial femoral vein, proximal deep femoral vein, proximal deep femoral vein, popliteal vein and posterior tibial veins. Findings: Deep Venous System:Normal flow, augmentation and compressibility. No echogenic thrombus identified. Superficial Venous SystemNo superficial thrombophlebitis. Soft tissues: Soft tissues are unremarkable. Impression: Negative for DVT. Reviewed, dictated and finalized at location P. Impression: Negative for DVT.
--- OUTSIDE RECORDS SUMMARY | 2025-03-21 16:49 | XMS_ITS | Clinical Summary ---
Author Organization [facility] Address [facility] [place] [address] Care Team Providers Care Dental Instrument Maker Name Role Phone None, Provider MD Primary [...] 11:31 AM CDT Height 165.1 cm (5' 5) 10/10/2022 11:31 AM CDT Body Mass Index 33.82 10/10/2022 11:31 AM CDT Plan of Treatment Health Maintenance Due Date Last Done Comments Annual Physical 11/12/1995 Hepatitis C 2010 DTaP, Tdap and Td Vaccines ( 4 - Tdap) 11/12/2011 06/24/1994, 07/30/1993, 03/05/1993 HPV Vaccines (1 - 3-dose SCD M series) 11/12/2019 Cervical Cancer Screening Pa p with HPV Testing (Age 30 to 64) Every 5 Years 2022 06/30/2022 COVID-19 Vaccine (1 - 2023-2 5 season) 2025 Cervical Cancer Screening Pa p Smear (Age 30 to 64) Every 3 Years 06/30/2025 06/30/2022 Cervical Cancer Screening wi th HPV 06/30/2025 Hepatitis B Vaccines Completed 07/30/1993, 03/05/1993, 1992 Meningococcal B Vaccine Aged Out No l onger eligible based on patient's age to complete this topic Meningococcal Vaccine Aged Out No marlee kwaku eligible based on patient's age to complete this topic Pneumococcal Vaccine: Pediatrics (0 to 5 Years) and At-Risk Patients (6 to 49 Years) Aged Out No longer eligible b ased on patient's age to complete this topic RSV Immunizations Under 20 Months Aged Out No longer eligible b ased on patient's age to complete this topic Insurance [place] [employer] Care Teams Dental Instrument Maker Relationship Specialty Start Date End Date None, Provider, MD PCP - General UNKNOWN PHYSICIAN SPECIALTY 10/10/22
--- OUTSIDE RECORDS SUMMARY | 2025-03-21 16:49 | XMS_ITS | Clinical Summary ---
Author Organization [facility] Address [address] [place] [address] Care Team Providers Care Chemical Laboratory Tester Name Role Phone Unavailable Primary Care Provider Unavailabl e Source Comments [facility],non-owned Affiliates and Associated Physician Practices is amultiple site organization consisting of ambulatory clinics and hospital sitesin [place], [place], [place] and [place]. This disclosure is being madepursuant to the Care Everywhere program and may not contain all information available regarding this patient. Last updated 18.Snapchat Allergies No known active allergies Medications * This document contains information received from the source organization and may not represent a complete record from that organization. * Be aware that medications may not be up to date on this document. Alwaysverify current medications with the patient. methadone (DOLOPHINE) 10 MG tabletIndicatio ns:Opioid Dependence Take 285 mg by mouth once daily Reasons: Opioid Dependence Active buPROPion XL 24hr (WELLBUTRIN-XL) 150 MG tabletIndicatio ns:Major Depressive Disorder Take 1 tablet by mouth once daily Reasons: Major Depressive Disorder 15 tablet 1 9 Active cephalexin (KEFLEX) 500 MG capsuleIndicati ons:Genitourina ry Infection Take 1 capsule by mouth 2 times daily Reasons: Infection of Genitals and/or Urinary Tract 8 capsule 9 Active nicotine (NICODERM CQ) 14 MG/24HR patchIndication s:Nicotine Dependence Apply 1 patch to skin once daily Remove old patch before applying new patch. Reasons: Nicotine Addiction 7 patch 9 Active ondansetron, disintegrating, (Zofran ODT) 4 MG tabletIndicatio ns:Nausea without vomiting Take 1 (one) tablet by mouth every 6 hours as needed for Nausea/Vomiting Allow tablet to dissolve on the tongue Reasons: Nausea without vomiting 30 tablet 3 Active albuterol HFA (ProAir HFA) 108 (90 Base) MCG/ACT inhalerIndicati ons:Shortness of breath Inhale 2 (two) puffs by mouth every 6 hours as needed for Shortness of Breath Reasons: Shortness of breath 8 g 3 Active aspirin-acetami nophen-caffeine (Excedrin Migraine) 250-250-65 MG tabletIndicatio ns:Headache Take 2 (two) tablets by mouth every 24 hours as needed for Headache Reasons: Headache 15 tablet 3 Active fluticasone propionate (Flonase) 50 MCG/ACT nasal sprayIndication s:Acute non-recurrent frontal sinusitis [place] 2 (two) sprays into each nostril once daily 16 g 3 Active naloxone HCl (Narcan) 4 MG/0.1ML nasal spray [place] 1 (one) spray into the nose as needed (May repeat every 2 min in alternating nostrils until emergency medical help arrives for overdose) 2 Each 3 Active Active Problems Problem Noted Date Diagnosed [...] more drinks on one occasion? 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 Gender Identity Not on file Sexual Orientation [...] 12:57 AM CDT Height 167.6 cm (5' 6) 10/03/2022 12:57 AM CDT Body Mass Index 35.51 10/03/2022 12:57 AM CDT Plan of Treatment Health Maintenance Due Date Last Done Comments DTAP/TDAP/TD VACCINES (1 - Tdap) 11/12/2011 HEPATITIS B VACCINE (1 of 3 - 19+ 3-dose series) 11/12/2011 PNEUMOCOCCAL VACCINE (1 of 2 - PCV) 11/12/2011 PAP SMEAR 2013 HPV VACCINE (1 - 3-dose SCDM series) 11/12/2019 COVID-19 VACCINE (1 - 2023-2 5 season) 2025 INFLUENZA VACCINE (#1) 2025 ZOSTER VACCINE (1 of 2) 2042 HEPATITIS [...] Reactive Non Reactive 09/30/2018 2:40 AM CDT [facility] Blood BLOOD SPECIMEN / Unknown Venipuncture / Unknown 09/30/2018 1:01 AM CDT 09/30/2018 2:00 AM CDT Narrative [facility] - 09/30/2018 2:40 AM CDT No Laboratory evidence of HIV infection. Tai Thorne MD LAB - CHEMISTRY ORDERABLES Final Result Performing Organization Address [facility] Co de Phone Number [facility] [address] [place] [address] * HEPATITIS SCREEN ACUTE (09/29/2018 3:01 PM CDT) [facility] HAV Antibody IgM Non Reactive Non Reactive 09/29/2018 3:51 PM CDT [facility] HBsAg Non Reactive Non Reactive 09/29/2018 3:51 PM CDT [facility] HBc Antibody IgM Non Reactive Non Reactive 09/29/2018 3:51 PM CDT [facility] HCV Antibody Screen Non Reactive Non Reactive 09/29/2018 3:51 PM CDT [facility] HCV S/C Ratio 0.23 0.00 - 0.79 09/29/2018 3:51 PM CDT [facility] Comment: Vizgar-xf-ecwetv ratio (S/CO) <0.80: Non Reactive Blood BLOOD SPECIMEN / Unknown Venipuncture / Unknown 09/29/2018 3:01 PM CDT 09/29/2018 3:10 PM CDT [facility] - 09/29/2018 3:51 PM CDT Non Reactive - Antibodies to Hepatitis C virus (HCV) were not detected, result does not exclude early acute HCV infection. Tai Thorne MD LAB - CHEMISTRY ORDERABLES Final Result Performing Organization Address [facility] de Phone Number [facility] [address] [place] [address] from Last 3 Months or Most Recently Relevant to Health Maintenance Insurance [facility] Advance Directives * Full Code (Latest Code Status on File) Date Activated Date Inactivated Comments 03/30/2019 4:20 AM 04/06/2019 9:37 PM * Full Code Date Activated Date Inactivated Comments 09/29/2018 2:34 PM 10/02/2018 11:50 AM
--- OUTSIDE RECORDS SUMMARY | 2025-03-21 16:49 | XMS_ITS | Clinical Summary ---
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
--- OUTSIDE RECORDS SUMMARY | 2025-03-21 16:49 | XMS_ITS | Patient Health Record ---
Author Organization [facility] Address [address] [place] [address] Care Team Providers Care District Plant Supervisor Name Role Phone Laure Fernandez Primary Care Provider [phone] Carlos Holley Unavailable [phone] Mayco Leal Unavailable [phone] Nicole Martinez Unavailable [phone] Thais Walsh Unavailable [phone] Mar Eason Unavailable [phone] Peter Nye Unavailable [address] Mayco Hawthorne Unavailable [phone] Martine Alan Unavailable [phone] Allergies Allergen (clinical drug ingredient) Drug/Non Drug Allergy documented on EMR Reaction Allergy Type Onset Date Status amoxicillin / clavulanate Augmentin Unknown Drug Allergy Active Results Component Value Reference Range Notes 12 Panel Urine Drug Screen Reviewed date:05/18/2024 02:54:45 PM Interpretation: Performing Lab: Notes/Report: THC NEG ZAIRA NEG MOP (OPI) NEG AMP NEG MET NEG BAR NEG BZO NEG MDMA NEG MTD NEG OXY NEG PCP NEG BUP POS 14 Panel Urine Drug Screen Reviewed date:02/05/2025 02:54:23 PM Interpretation: Performing Lab: Notes/Report: THC neg ZAIRA neg MOP (OPI) neg AMP neg MET neg BAR neg BZO neg MDMA neg MTD neg OXY neg PCP neg BUP POS TCA neg FTY neg 14 Panel Urine Drug Screen Reviewed date:03/12/2025 02:10:55 PM Interpretation: Performing Lab: Notes/Report: THC neg ZAIRA neg MOP (OPI) neg AMP neg MET neg BAR neg BZO neg MDMA neg MTD neg OXY neg PCP neg BUP POS TCA neg FTY neg 12 Panel Urine Drug Screen Reviewed date:04/17/2024 [...] neg OXY neg PCP neg BUP POS 14 Panel Urine Drug Screen Reviewed date:11/30/2024 02:21:01 PM Interpretation: Performing Lab: Notes/Report: THC NEG ZAIRA NEG MOP (OPI) NEG AMP NEG MET NEG BAR NEG BZO NEG MDMA NEG MTD NEG OXY NEG PCP NEG BUP POS TCA NEG FTY NEG Buprenorphine and Metabolite (Urine test) Reviewed date:08/27/2024 08:21:23 AM Interpretation: Performing Lab:[facility], [address], [place], Phone - [phone], Director - PhDAbudu Notes/Report: Clinical Information:CCU:[id number] LM Buprenorphine Positive Confirmation p erformed by Mass Spectrometry Buprenorphine Positive Buprenorphine Conf, MS, UR 306 Cutoff=10 ng/m L Norbuprenorphine Positive Norbuprenorphine Conf, MS, UR 256 Cutoff=10 n g/mL 14 Panel Urine Drug Screen Reviewed date:01/02/2025 03:12:46 PM Interpretation: Performing Lab: Notes/Report: THC neg ZAIRA neg MOP (OPI) neg AMP neg MET neg BAR neg BZO neg MDMA neg MTD neg OXY neg PCP neg BUP POS TCA neg FTY neg 12 Panel Urine Drug Screen Reviewed date:07/19/2024 02:10:17 PM Interpretation: Performing Lab: Notes/Report: THC NEG ZAIRA NEG MOP (OPI) NEG AMP NEG MET NEG BAR NEG BZO NEG MDMA NEG MTD NEG OXY NEG PCP NEG BUP POS 12 Panel Urine Drug Screen Reviewed date:10/24/2024 03:24:28 PM Interpretation: Performing Lab: Notes/Report: THC neg ZAIRA neg MOP (OPI) neg AMP neg MET neg BAR neg BZO neg MDMA neg MTD neg OXY neg PCP neg BUP POS Reason For Referral Reason Psych Diagnosis 1 Opioid use disorder (F11.99) Referral Organization [facility] Referring Provider First Name Martine Referring Provider Last Name Dayanna Referring Provider Speciality Psychiatry Referred Provider Specialty Behavioral [facility] Referral Priority Routine Medications Medication SIG (Take, Route, Frequency, Duration) [...] school 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 Stress is when someone feels tense, nervous, anxious, or can\t sleep at night because their mind is troubled Very much In the past year have you sp ent more than 2 nights in a row in a long term, senior care, fdc center, or juvenile correctional facility? No Are [...] cigarette smoker (20-39 cigs/day),Chain smoker Section Notes: ADDITIONAL SOCIAL HISTORY 02/25/2023: PERSONAL [...] On probation for meth possession Spiritual Affiliation- [facility] PAST PSYCHIATRIC HISTORY Past Psychiatrist or Therapist [...] On probation for meth possession Spirit[facility]- [facility] PAST PSYCHIATRIC HISTORY Past Psychiatrist or Therapist [...] Legal History- On probation for meth possession [facility] Affiliation- [place] - - - - - [...] lithium, different depression meds, buspirone, Concerta, Vyvanse In Psych Hospitalizations - Multiple stays for SI/self [...] On probation for meth possession Spiritual Affiliation- [facility] PAST PSYCHIATRIC HISTORY Past Psychiatrist or Therapist [...] lithium, different depression meds, buspirone, Concerta, Vyvanse In Psych Hospitalizations - Multiple stays for SI/self [...] On probation for meth possession Spiritual Affiliation- [facility] - - - - - - - [...] Legal History- On probation for meth possession [facility]- [place] - - - - - - [...] On probation for meth possession Spiritual Affiliation- [facility] - - - - - - - [...] Legal History- On probation for meth possession [facility]- [place] - - - - - - [...] On probation for meth possession Spiritual Affiliation- [facility] - - - - - - - [...] Legal History- On probation for meth possession [facility]- [place] - - - - - - [...] On probation for meth possession Spiritual Affiliation- [facility] - - - - - - - [...] Problem Status W/U Status Risk Notes Problem Morbid obesity (430750042) Morbid obesity (E66.01) Active confirmed Problem Generalized anxiety disorder (94042773) RADHA (generalized anxiety disorder) (F41.1) Active confirmed Problem Psychoactive substance dependence (3008304) Chemical dependency (F19.20) Active confirmed Problem Urinary hesitancy (8558053) Urinary hesitancy (R39.11) Active confirmed Problem Depressive disorder (46089613) Depressive disorder (F32.9) Active confirmed Problem Schizoaffective disorder (22751219) Schizoaffective disorder (F25.9) Active confirmed Problem Overweight (585766034) Over weight (E66.3) Active confirmed Problem Hyperlipidaemia (79658892) Hyperlipemia (E78.5) Active confirmed Problem Obesity (125061880) Obesity (BMI 30-39.9) (E66.9) Active confirmed Problem Insomnia (800701540) Insomnia, unspecified type (G47.00) Active confirmed Problem Opioid dependence (86181635) Opioid use disorder, severe (F11.20) Active confirmed Problem Tobacco use (250579474) Tobacco use disorder (F17.200) Active confirmed Problem Morbid obesity (114791499) Obesity, morbid, BMI 40.0-49.9 (E66.01) Active confirmed Problem Opioid use disorder (4183016570) Opioid use disorder (F11.99) Active confirmed Problem Metabolic syndrome (722375478) Metabolic syndrome (E88.810) Active confirmed Vital Signs Heart Rate 90 /min 03/21/2025 Temperature 97.8 degrees Fahrenheit 03/21/2025 Respiratory Rate 18 /min 03/21/2025 Blood pressure diastolic 78 mm Hg 03/21/2025 Oximetry 98 % 03/21/2025 Height 65 in 03/21/2025 Blood pressure systolic 114 mm Hg 03/21/2025 Weight 299.6 lbs 03/21/2025 BMI 49.85 kg/m2 03/21/2025 Encounters Encounter Location Date Provider Diagnosis [facility] [address] [place] [place] [address] 03/21/2025 Mayco aHwthorne Hyperlipemia E78.5 ; Bilateral leg edema R60.0 ; Fatigue R53.83 ; Metabolic syndrome E88.810 ; Shortness of breath on exertion R06.02 ; Over weight E66.3 ; Elevated blood pressure (not hypertension) R03.0 and Obesity, morbid, BMI 40.0-49.[address] [place] [address] 04/17/2024 Mar Szlufik Opioid use disorder F11.99 ; Obesity, morbid, BMI 40.0-49.9 E66.01 ; Tobacco use disorder F17.200 and Nutritional counseling Z71.[address] [address] 05/18/2024 Mayco Leal Opioid use disorder F11.99 ; Insomnia, unspecified type G47.00 ; Obesity, morbid, BMI 40.0-49.9 E66.01 ; Nutritional counseling Z71.3 and Nicotine dependence, unspecified, uncomplicated F17.[address] [address] 07/19/2024 Carlos Holley Opioid use disorder F11.[address] [address] 08/21/2024 Mar Szlufik Opioid use disorder F11.[address] [address] 10/24/2024 Mar Szlufik Opioid use disorder F11.99 and Over weight E66.[address] [address] 11/30/2024 Thais Walsh Opioid use disorder F11.99 and Over weight E66.[address] [address] 01/02/2025 Carlos Holley Opioid use disorder F11.[address] [address] 02/05/2025 Mar Szlufik Opioid use disorder F11.99 and Over weight E66.[address] [address] 02/05/2025 Peter Nye [address] [address] 02/06/2025 Peter Nye [address] [address] 03/12/2025 Martine Alan Opioid use disorder F11.99 and Tobacco use disorder F17.[address] [address] 04/27/2024 Carlos Holley Exposure to potential infection Z20.9 ; Fatigue R53.83 ; Hyperlipemia E78.5 and Metabolic syndrome E88.[address] [address] 05/18/2024 Nicole Martinez Opioid use disorder F11.[address] [address] 05/22/2024 Mayco Sutton Opioid use disorder F11.[address] [address] 08/21/2024 Mar Eason Assessments Encounter Date Diagnosis (ICD Code) Assessment Notes Treatment Notes Treatment Clinical Notes Section Notes 04/17/2024 Obesity, morbid, BMI 40.0-49.9 (ICD-10 - E66.01) 04/17/2024 Opioid use disorder (ICD-10 - F11.99) 05/18/2024 Opioid use disorder (ICD-10 - F11.99) 05/18/2024 Opioid use disorder (ICD-10 - F11.99) 05/22/2024 Opioid use disorder (ICD-10 - F11.99) 07/19/2024 Opioid use disorder (ICD-10 - F11.99) 08/21/2024 Opioid use disorder (ICD-10 - F11.99) 10/24/2024 Over weight (ICD-10 - E66.3) 10/24/2024 Opioid use disorder (ICD-10 - F11.99) 02/05/2025 Over weight (ICD-10 - E66.3) 02/05/2025 Opioid use disorder (ICD-10 - F11.99) *Referred to peer recovery 03/12/2025 Tobacco use disorder (ICD-10 - F17.200) Patient counseled on the risks of smoking, and benefits of quitting. Begin wearing Nicotine patch. The nicotine patch is typically worn for 24 hours. The patch can even be worn when showering or bathing. When you wake up, put a fresh patch on clean skin and wear it for a full 24 hours. If you find that you are having vivid dreams or that your sleep is disturbed, you can take the patch off before bed and put a new one on the next morning. Put the patch on clean, dry, hair-free skin on the upper body. Usual places to put the patch are the upper chest, upper arm, shoulder, back, or inner arm. Avoid putting the patch on areas of irritated, oily, scarred, or damaged skin. Wash your hands with soap and water after you apply the patch to wash away any nicotine you may have gotten on your fingers when applying the patch. To avoid skin irritation, put the patch on a different area of your upper body each day. If the patch loosens or falls off, replace it with a new one. When changing your patch, remove the patch carefully and dispose of it by folding it in half with the sticky sides touching. Keep out of reach of children and pets. Quitting smoking may make some people depressed or anxious, whether quitting with medication or not. 03/12/2025 Opioid use disorder (ICD-10 - F11.99) 04/27/2024 Exposure to potential infection (ICD-10 - Z20.9) 05/18/2024 Insomnia, unspecified type (ICD-10 - G47.00) 03/21/2025 Hyperlipemia (ICD-10 - E78.5) 03/21/2025 Bilateral leg edema (ICD-10 - R60.0) Educated patient to go the ER if any of the symptoms worsen like increased SOB, CP, worst headache of her life or her pain is worsening. 11/30/2024 Over weight (ICD-10 - E66.3) 11/30/2024 Opioid use disorder (ICD-10 - F11.99) May self-administer or be administered own oral medication per [facility] Protocols. Provided informed consent with understanding of side effects, risks and benefits as well as alternative treatments as previously discussed and with the above recommended medications ang other aspects of the treatment program. Agrees to return sooner if symptoms worsen or suicidal or homicidal ideations occur. support and education provided concerning illness and treatment plan, risks and benefits, pt verbalized understanding of the same and agreeable - presents via secure Zoom connection for MAT walk in clinic. Denies concerns, cravings, or missteps - Most mornings feels bad, like she's going through with drawal, but feels this is manageable, doesn't want to increase dose. - Feels Suboxone at current dose has been working well, prefers to continue with current dose - continue Suboxone for OUD, evaluate at follow up in 4 weeks - [place]- no concerns - UDS-no concerns++BUP 01/02/2025 Opioid use disorder (ICD-10 - F11.99) May self-administer or be administered own oral medication per [facility] Protocols. Provided informed consent with understanding of side effects, risks and benefits as well as alternative treatments as previously discussed and with the above recommended medications ang other aspects of the treatment program. Agrees to return sooner if symptoms worsen or suicidal or homicidal ideations occur. support and education provided concerning illness and treatment plan, risks and benefits, pt verbalized understanding of the same and agreeable - presents via secure Zoom connection for MAT walk in clinic. Denies concerns, cravings, or missteps - Most mornings feels bad, like she's going through with drawal, but feels this is manageable, doesn't want to increase dose. - Feels Suboxone at current dose has been working well, prefers to continue with current dose - continue Suboxone for OUD, evaluate at follow up in 4 weeks - [place]- no concerns - UDS-no concerns++BUP 05/18/2024 Obesity, morbid, BMI 40.0-49.9 (ICD-10 - E66.01) 03/21/2025 Fatigue (ICD-10 - R53.83) 04/27/2024 Fatigue (ICD-10 - R53.83) 04/17/2024 Tobacco use disorder (ICD-10 - F17.200) 04/27/2024 Hyperlipemia (ICD-10 - E78.5) 04/17/2024 Nutritional counseling (ICD-10 - Z71.3) 05/18/2024 Nutritional counseling (ICD-10 - Z71.3) 03/21/2025 Metabolic syndrome (ICD-10 - E88.810) 04/27/2024 Metabolic syndrome (ICD-10 - E88.810) 05/18/2024 Nicotine dependence, unspecified, uncomplicated (ICD-10 - F17.200) 03/21/2025 Shortness of breath on exertion (ICD-10 - R06.02) 03/21/2025 Over weight (ICD-10 - E66.3) 03/21/2025 Elevated blood pressure (not hypertension) (ICD-10 - R03.0) Educated patient to take BPs at work for the next week and return for a follow-up/[facility] appointment. 03/21/2025 Obesity, morbid, BMI 40.0-49.9 (ICD-10 - E66.01) 04/17/2024 Other Client agrees to take medication [...] even . Patient understands that ALL treating providers/physicia ns should be informed of buprenorphine use as [...] office with questions or concerns. Patient may self-administe r their own medications or may self-administe r their own oral medications per [facility] Protocol. 10/24/2024 Other Patient agrees to take medication as [...] office with questions or concerns. Patient may self-administe r their own medications or may self-administe r their own oral medications per [facility] Protocol. 02/05/2025 Other *Met with health navigator today for resources Patient agrees to take medication as prescribed. [...] office with questions or concerns. Patient may self-administe r their own medications or may self-administe r their own oral medications per [facility] Protocol. 03/12/2025 Other Patient agrees to take medication as [...] may self-administer their own oral medications per [facility] Protocol. 02/05/2025 Other Event Planning Intern met with Amarilys Mathis to assist in working on building skills to help the consumer gain confidence in their independent living skills. The bond underwriter practiced with amarilys implementing problem solving skills to help facilitate exploration of options of enrolling in therapy and obtaining resources. The bond underwriter encouraged and engaged in critical thinking of how to use natural resources and coping skills to help manage symptoms in the moment. Event Planning Intern also worked on modeling and practicing with the consumer healthy coping skills to reduce stress and anxiety including attending 12 step meetings, enrolling in therapy, using her parent coach, journaling and exercising. Plan Of Treatment Future Test Test Name Order Date Echocardiogram 03/21/2025 Chest X-ray PA and lateral 03/21/2025 Electrocardiogram (EKG) 03/21/2025 Hemoglobin A1c CLIA Waived 03/21/2025 Vitamin B12 and Folate 03/21/2025 Iron and TIBC* 03/21/2025 CBC With Differential/Platelet* 03/21/20 25 D-Dimer 03/21/2025 Lipid Panel With LDL/HDL Ratio CMP 14 Comprehensive Metabolic Panel* Bilateral Venous Doppler of Lower Extrem ities 03/21/2025 TSH+Free T4 03/21/2025 Next Appt Details Provider Name:Jammie Disla, 03/27/2025 01:00:00 PM, [address], [place], [address], Medical (General) History Medical History History ICD Code Opioid use disorder Hyperlipemia E78.5 Hx of hypothyroidism (not currently) sepsis (bi-lateral kidney) Surgical History Surgery Date(Month/Year) tonsillectomy 2009 Hospitalization History Reason Date(Month/Year) [facility] 11/2023 [facility] 10/2022 MRSA 04/09 child 2012
== END 2025-03-21 16:41 | disposition home or self-care (01) ==
DX: R60.0 Localized edema (principal)
CPT/HCPCS: 93970

== ENCOUNTER 2025-03-22 11:16 | Outpatient (CLI) | payer OTHER, SELFPAY ==
--- OUTSIDE RECORDS SUMMARY | 2025-02-26 08:20 | XMS_ITS ---
Author Organization [facility] Address [address] [place] [address] Care Team Providers Care Security Systems Specialist Name Role Phone Laure Fernandez Primary Care Provider Carlos Holley [phone] REASON FOR VISIT last appt 02/22/24- needs 40 mins Social History Sex Assigned At : Social History Observation Description Sex Assigned At Female Encounters Encounter Location Date Provider Diagnosis [address] [place] [address] 02/26/2025 Carlos Holley Plan Of Treatment Next Appt Details Provider Name:Jammie Disla, 03/27/2025 01:00:00 PM, [address], [place], [address], Provider Name:Mayco lassiter, 03/28/2025 10:00:00 AM, [address], [place], [address], Progress Notes * Vic ABREUOB:1990 (34 yo F)Acc No.[id number]:02/26/2025 UNLOCKED PROGRESS NOTE Progress Notes Patient: Yohana SUTTON Provider: Cherrie Holley :1990 A ge:34 Y S ex:Female Date:02/26/2025 Phone: Address:[address] [place], [place] [id number] Pcp:Laure Fernandez Subjective: * Chief Complaints: * 1 . Last appt 02/22/24- needs 40 mins. * Medical History: Objective: * Vitals: Assessment: Plan: * Treatment: * * Electronic signature of Aries Holley , [id number] on 03/22/2025 at 11:22 AM CDT Sign off status: Pending * Provider: Cherrie Holley Date: 0 02/26/2025 Generated for Agustina ware/Angelique/Leora on: 11:22 AM CDT
--- OUTSIDE RECORDS SUMMARY | 2025-03-21 09:00 | XMS_ITS ---
Author Organization Formerly [facility] Address [address] [place] [address] Care Team Providers Care Technology Development Intern Name Role Phone Laure Fernandez Primary Care Provider [phone] Mayco Hawthorne Unavailable [phone] Allergies Allergen (clinical drug ingredient) Drug/Non Drug Allergy documented on EMR Reaction Allergy Type Onset Date Status amoxicillin / clavulanate Augmentin Unknown Drug Allergy Active REASON FOR VISIT urgent, both legs swollen Medications Medication SIG (Take, Route, Frequency, Duration) Notes Start Date End Date Status QUEtiapine Fumarate 50 mg TAKE 1 TABLET BY MOUTH AT BEDTIME Not-Taking Buprenorphine HCl-Naloxone HCl 8-2 MG 1.5 film under the tongue and allow to dissolve Sublingual Once a day; Duration: 30 days 03/12/2025 Active Nicotine 21 MG/24HR 1 patch to skin Transdermal Once a day; Duration: 30 days remove at bedtime 02/22/2024 Active Nicotine Polacrilex 4 MG 1 piece chew for 30 minutes as needed Mouth/Throat WINTER 1-2 HOURS As needed smoking cessation 02/22/2024 Active Social History Tobacco Use: Social History Observation Description Date Details (start date - stop date) Heavy tobacco s moker 10/02/2008 - NA Sex Assigned At : Social [...] Positive PRAPARE Question Answer Notes Date Completed/Updated: 02/06/2025 What is your current housing situation? I have housing Staying with sister for right now. Are you worried about losing your housing? Yes What is the highest level of school that you have finished? 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 Check all that apply Food,Clothing,Utilities,Ot her (please write in notes) Has lack of transportation k ept you from medical appointments, meetings, work or from getting things needed for daily living? No How often do you see or talk to people that you care about and feel close to? (For example: talking to friends on the phone, visiting friends or family, going to yarsanism or club meetings) More than 5 times a week How stressed are you? Stress is when someone feels tense, nervous, anxious, or can\t sleep at night because their mind is troubled Very much In the past year have you sp ent more than 2 nights in a row in a detention, mcfp, care home center, or juvenile correctional facility? No Are you a refugee? No What country are you from? [place] Do you feel physically and emotionally safe where you currently live? Yes In the past year, have you b een afraid of your partner or ex-partner? Yes PRAPARE Score: 8 Tobacco Control (Standard) Question Answer Notes When did you start smoking? 10/02/2008 Tobacco use: Heavy tobacco smoker Additional Findings: Tobacco user Heavy cigarette smoker (20-39 cigs/day),Chain smoker Section Notes: - - - - [...] in 2006 by hanging herself. Also found naveen 2-3 years ago. 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 Legal History- On probation for meth possession Spiritual Affiliation- Bulmarodavid - - - - - - - [...] - Father Anxiety - None Vital Signs Blood pressure systolic 114 mm Hg 03/21/20 25 Blood pressure diastolic 78 mm Hg 025 Heart Rate 90 /min 03/21/2025 Oximetry 98 % 03/21/2025 Temperature 97.8 degrees Fahrenheit 03/21/20 25 Respiratory Rate 18 /min 03/21/2025 Weight 299.6 lbs 03/21/2025 Height 65 in 03/21/2025 BMI 49.85 kg/m2 03/21/2025 Encounters Encounter Location Date Provider Diagnosis [facility] [address] [place] [address] 03/21/2025 Mayco Hawthorne Hyperlipemia E78.5 ; Bilateral leg edema R60.0 ; Fatigue R53.83 ; Metabolic syndrome E88.810 ; Shortness of breath on exertion R06.02 ; Over weight E66.3 ; Elevated blood pressure (not hypertension) R03.0 and Obesity, morbid, BMI 40.0-49.9 E66.01 Assessments Encounter Date Diagnosis (ICD Code) Assessment Notes Treatment Notes Treatment Clinical Notes Section Notes 03/21/2025 Hyperlipemia (ICD-10 - E78.5) 03/21/2025 Bilateral leg edema (ICD-10 - R60.0) Educated patient to go the ER if any of the symptoms worsen like increased SOB, CP, worst headache of her life or her pain is worsening. 03/21/2025 Fatigue (ICD-10 - R53.83) 03/21/2025 Metabolic syndrome (ICD-10 - E88.810) 03/21/2025 Shortness of breath on exertion (ICD-10 - R06.02) 03/21/2025 Over weight (ICD-10 - E66.3) 03/21/2025 Elevated blood pressure (not hypertension) (ICD-10 - R03.0) Educated patient to take BPs at work for the next week and return for a follow-up/[facility] care appointment. 03/21/2025 Obesity, morbid, BMI 40.0-49.9 (ICD-10 - E66.01) Plan Of Treatment Treatment Notes Assessment Notes Bilateral leg edema Educated patient to go the ER if any of the symptoms worsen like increased SOB, CP, worst headache of her life or her pain is worsening. Elevated blood pressure (not hypertensio n) Educated patient to take BPs at work for the next week and return for a follow-up/[facility] care appointment. Future Test Test Name Order Date Echocardiogram 03/21/2025 Chest X-ray PA and lateral 03/21/2025 Electrocardiogram (EKG) 03/21/2025 Hemoglobin A1c CLIA Waived 03/21/2025 Vitamin B12 and Folate 03/21/2025 Iron and TIBC* 03/21/2025 CBC With Differential/Platelet* 03/21/20 25 D-Dimer 03/21/2025 Lipid Panel With LDL/HDL Ratio CMP 14 Comprehensive Metabolic Panel* Bilateral Venous Doppler of Lower Extrem ities 03/21/2025 TSH+Free T4 03/21/2025 Next Appt Details Follow Up: 1 Week, Reason: Provider Name:Jammie Disla, 03/27/2025 01:00:00 PM, [address], [place], [address], Provider Name:Mayco lassiter, 03/28/2025 10:00:00 AM, [address], [place], [address], Progress Notes * Vic MATHISOB:1990 (34 yo F)Acc No.[id number]:03/21/2025 UNLOCKED PROGRESS NOTE Progress Notes Patient: Yohana SUTTON Provider: Payton Hawthorne APN :1990 A ge:34 Y S ex:Female Date:03/21/2025 Phone: Address:[address] [place], [place] [id number] Pcp:Laure Fernandez Subjective: * Chief Complaints: * 1 . Urgent, both legs swollen. * HPI: I nterim History: Emergency room visit N o. W as hospitalized N o.? D epression Screening: PHQ-9 L ittle interest or pleasure in doing things M ore than half the days, F eeling down, depressed, or hopeless M ore than half the days, T rouble falling or staying asleep, or sleeping too much M ore than half the days, F eeling tired or having little energy N early every day, P oor appetite or overeating M ore than half the days, F eeling bad about yourself or that you are a failure, or have let yourself or your family down M ore than half the days, T rouble concentrating on things, such as [...] N ot at all, T otal Score 1 3, I nterpretation M oderate Depression. C SSRS Interpretation and Follow Up Plan: CSSRS Interpretation and Follow Up Plan C SSRS Screen documented using SF Y es, R isk Disposition from SF L ow - No Follow Up Plan Required, F ollow Up Plan N o Follow Up Plan required at this time., T imeframe of Screening T pacheco.? S creening: [place] Suicide Severity Rating Scale (LF) D o [...] N o, I nterpretation: L ow Risk. S ummary: 34-year-old female presents to the office today for bilateral leg swelling. The patient states that over the last 6 months her legs have started to swell and be very tight. Her R leg and ankle have started to have some pain 3/10, but no redness or heat felt behind the knee. She states that the pain is constantly there with some throbbing. She is concerned with her weight as well stating that since May of 2023 she has gained close to 100lbs. She is also stating that she never got labs done last time citing that she lost insurance and did not have the money to get the labs completed. She is still complaining of fatigue and needing other labs completed. She states that she is always tired, is under a lot of stress working, taking care of her grandfather and her son, and just cannot catch a break. She is also stating that she has been smoking a lot lately to help with anxiety, but states that she has had SOB with exertion and at times gets dizzy at work. She states that they have taken BPs at her job, a longterm, and it has been elevated when she is symptomatic. * ROS: G eneral/Constitutional: Denies D ental Problems. d iaphoresis D enies. D enies D rowsiness. D enies S weats. L ethargy A dmits. W eakness D enies. D enies C hills. D enies F atigue. D enies F ever. D enies H eadache. D enies L ightheadedness. A dmits W eight gain. E ndocrine: Change in appetite D enies. D enies C old intolerance. D enies D iabetes. D enies D ifficulty sleeping. A dmits D izziness,?intermittently. D enies E xcessive sweating. D enies E xcessive thirst. D enies F requent urination. D enies H eat intolerance. R espiratory: Denies D yspnea. D enies P ain with breathing. A dmits B reathing problems, w ith exertion. C ardiovascular: diaphoresis Denies. L eg Swelling Admits. A dmits E stefan. D enies C hest pain. P eripheral Vascular: Calf pain with walking D enies. D enies A bsent pulses in hands. D enies A bsent pulses in feet. D enies B lanching of skin. D enies C old extremities. * Medical History: O pioid use disorder, Hyperlipemia, Hx of hypothyroidism (not currently), Sepsis (bi-lateral kidney). * Surgical History: t onsillectomy 2009. * Hospitalization/Major Diagno stic Procedure: c hild 2012, MRSA 04/09 , [facility] 10/2022, [facility] 11/2023. * Family History: F ather: , suicide. 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 0 . S ocial Determinants: P ANGEL Choi ate Completed/Updated: 0 02/06/2025, W hat is your current housing situation? I have housing Staying with sister for right now., A re you worried about losing your housing? Y es, W hat is the highest level of school that you have finished? M ore than high school, W hat is your current work situation? F ull time work, I n the past year, have you or any family members you live with been unable to get any of the following when it was really needed? Check all that apply F ood,Clothing,Utilities,Other (please write in notes), H as lack of transportation kept you from medical appointments, meetings, work or from getting things needed for daily living? N o, H ow often do you see or talk to people that you care about and feel close to? (For example: talking to friends on the phone, visiting friends or family, going to yarsanism or club meetings) M ore than 5 times a week, H ow stressed are you? Stress is when someone feels tense, nervous, anxious, or can\t sleep at night because their mind is troubled V deandra much, I n the past year have you spent more than 2 nights in a row in a detention, mcfp, care home center, or juvenile correctional facility? N o, A re you a refugee? N o, W hat country are you from[place], D o you feel physically and emotionally safe where you currently live? Y es, I n the past year, have you been afraid of your partner or ex-partner??Yes, P RAPARE Score: 8 . T obacco Use: T obacco Control (Standard) W hen did you start smoking? 0 10/02/2008, T obacco use: H eavy tobacco smoker, A dditional Findings: Tobacco user H eavy cigarette smoker (20-39 cigs/day),Chain smoker. D rugs/Alcohol: A lcohol Screen (Audit-C) D [...] Father Anxiety - None. * Medications: T aking Nicotine Polacrilex 4 MG Gum 1 piece chew for 30 minutes as needed Mouth/Throat WINTER 1-2 HOURS As needed smoking cessation, Taking Buprenorphine HCl-Naloxone HCl 8-2 MG Film 1.5 film under the tongue and allow to dissolve Sublingual Once a day , Taking Nicotine 21 MG/24HR Patch 24 Hour 1 patch to skin Transdermal Once a day remove at bedtime, Not-Taking QUEtiapine Fumarate 50 mg Tablet TAKE 1 TABLET BY MOUTH AT BEDTIME , Medication List reviewed and reconciled with the patient * Allergies: A ugmentin: Allergy. Objective: * Vitals: I nitials:KS, Wt:299.6, Ht:65, BMI:49.85, BP:114/78, HR:90, Oxygen sat %:98, Temp:97.8, RR:18, Pain scale:4. * Examination: G eneral Examination: GENERAL APPEARANCE: a lert, well hydrated, in no distress, pleasant, in no acute distress. NECK/THYROID: n ormal, neck supple, full range of motion, carotid pulse normal, neck supple. HEART: r egular rate and rhythm, S1, S2 normal, no S3, S4, no murmurs, no rubs, normal. LUNGS: n ormal, respirations regular and easy, clear to auscultation bilaterally, no wheezes, rales, rhonchi, clear anteriorly and posteriorly, good air movement. EXTREMITIES: n egative anglin sign bilaterally., good capillary refill in nail beds, non- pitting edema lower extremities. Assessment: * Assessment: 1. H yperlipemia - E78.5 2 . B ilateral leg edema - R60.0 (Primary) ? 3 . F atigue - R53.83 4 . M etabolic syndrome - E88.810 ?5. S hortness of breath on exertion - R06.02 6 . O dillon weight - E66.3 7. E levated blood pressure (not hypertension) - R03.0 8 . O besity, morbid, BMI 40.0-49.9 - E66.01 Plan: * Treatment: 2. H yperlipemia L AB: Lipid Panel With LDL/HDL Ratio (Ordered for 03/21/2025) 3. F atigue L AB: TSH+Free T4 (Ordered for 03/21/2025) L AB: Iron and TIBC* (Ordered for 03/21/2025) L AB: Vitamin B12 and Folate (Ordered for 03/21/2025) L AB: CBC With Differential/Platelet* (Ordered for 03/21/2025) L AB: CMP 14 Comprehensive Metabolic Panel* (Ordered for 03/21/2025) 4. M etabolic syndrome L AB: Hemoglobin A1c CLIA Waived (Ordered for 03/21/2025) 5. S hortness of breath on exertion I maging: Echocardiogram (Ordered for 03/21/2025) I maging: Electrocardiogram (EKG) (Ordered for 03/21/2025) I maging: Chest X-ray PA and lateral (Ordered for 03/21/2025) 6. E levated blood pressure (not hypertension) Notes: Educated patient to take BPs at work for the next week and return for a follow-up/establishing care appointment. * Recommended Wellness and Pre vention Guidelines: * S tatus Francis arellanot L ast Done N ext Due A ction Taken N ONCOMPLIANT C ervical cancer screening - 1 - - * Procedure Codes: 3 008F BODY MASS INDEX DOCD * Preventive Medicine: Counseling: S MOKING: P atient counselled on the dangers of tobacco use and urged to quit. 1 .. C are goal follow-up plan: B MN management provided Y es,?Above Normal BMI Follow-up L ifestyle education regarding diet. * Follow Up: 1 Week * * Electronic signature of Tez Hawthorne on 03/22/2025 at 11:22 AM CDT Sign off status: Pending * Provider: Payton Hawthorne APN Date: 1 Generated for Agustina ware/Angelique/Leora on: 1 11:22 AM CDT History and Physical Notes * HPI (History of Present Illness) Category Sub-Category Detail Notes Category Not es Interim History Was hospitalized No Emergency room visit No Depression Screening PHQ-9 Little inte rest or pleasure in doing things: More than half the days Feeling down, depressed, or hopeless: Mo re than half the days Trouble falling or staying a sleep, or sleeping too much: More than half the days Feeling tired or having little energy: N early every day Poor appetite or overeating: More than h mcfp the days Feeling bad about yourself o r that you are a failure, or have let yourself or your family down: More than half the days Trouble concentrating on thi ngs, such as [...] some way: Not at all Total Score: 13 Interpretation: Moderate Depression Summary 34-year-old female presents to the office today for bilateral leg swelling. The patient states that over the last 6 months her legs have started to swell and be very tight. Her R leg and ankle have started to have some pain 3/10, but no redness or heat felt behind the knee. She states that the pain is constantly there with some throbbing. She is concerned with her weight as well stating that since May of 2023 she has gained close to 100lbs. She is also stating that she never got labs done last time citing that she lost insurance and did not have the money to get the labs completed. She is still complaining of fatigue and needing other labs completed. She states that she is always tired, is under a lot of stress working, taking care of her grandfather and her son, and just cannot catch a break. She is also stating that she has been smoking a lot lately to help with anxiety, but states that she has had SOB with exertion and at times gets dizzy at work. She states that they have taken BPs at her job, a longterm, and it has been elevated when she is symptomatic. Screening [place] Suicide Severity Rating Scale (LF) Do you want to [...] end your life?: No Interpretation:: Low Risk CSSRS Interpretation and Follow Up Plan CSSRS Interpretation and Follow Up Plan CSSRS Screen documented using SF: Yes Risk Disposition from SF: Low - No Follo w Up Plan Required Follow Up Plan: No Follow Up Plan requir ed at this time. Timeframe of Screening: Today Examination Category Sub-Category Detail Notes Category Not es General Examination GENERAL APPEARANCE: alert, w ell hydrated, in no distress, pleasant, in no acute distress NECK/THYROID: normal, neck supple, full range of motion, carotid pulse normal, neck supple HEART: regular rate and rhy thm, S1, S2 normal, no S3, S4, no murmurs, no rubs, normal LUNGS: normal, respirations regular and easy, clear to auscultation bilaterally, no wheezes, rales, rhonchi, clear anteriorly and posteriorly, good air movement EXTREMITIES: negative anglin sign bilaterally., good capillary refill in nail beds, non-pitting edema lower extremities
--- NOTE | 2025-03-22 | ECG_ITS ---
Test Date: 2025-03-22 12:22:51 Measurements Intervals [place] Rate: 76 P: 52 ID: [id number] QRS: 8 QRSD: 109 T: 22 QT: 386 QTc: 435 Interpretive Statements SINUS RHYTHM WITH SINUS ARRHYTHMIA INCOMPLETE RIGHT BUNDLE BRANCH BLOCK BASELINE ARTIFACT- I, II, III, AVR, AVL, AVF BORDERLINE ECG No previous ECG available for comparison Electronically Signed On 03-22-2025 12:43:21 CDT by Jaciel Amaro D.O.
--- NOTE | ~2025-03-22 | XR_ITS ---
Examination: XR chest 2V Clinical History: BREATH EXERTION, SMOKER, SOB X 6 MONTHS Comparison: 04/28/2023 Technique: PA and Lateral Findings: Cardiomediastinal silhouette normal size and configuration. Lungs clear. No acute bony abnormality. IMPRESSION: 1. No acute cardiopulmonary findings. Reviewed, dictated and finalized at location R.
--- OUTSIDE RECORDS SUMMARY | 2025-03-22 11:22 | XMS_ITS | Clinical Summary ---
Author Organization [facility] Address [address] [place] [address] Care Team Providers Care Road Driver Name Role Phone Unavailable Primary Care Provider Unavailabl e Source Comments [facility],non-owned Affiliates and Associated Physician Practices is amultiple site organization consisting of ambulatory clinics and hospital sitesin [place], [place], [place] and [place]. This disclosure is being madepursuant to the Care Everywhere program and may not contain all information available regarding this patient. 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 Tai Thorne MD LAB - CHEMISTRY ORDERABLES Final Result Performing Organization Address [facility] Co de Phone Number [facility] [address] [place] [address] * HEPATITIS SCREEN ACUTE (09/29/2018 3:01 PM CDT) [facility] HAV Antibody IgM Non Reactive Non Reactive 09/29/2018 3:51 PM CDT [facility] HBsAg Non Reactive Non Reactive 09/29/2018 3:51 PM CDT [facility] HBc Antibody IgM Non Reactive Non Reactive 09/29/2018 3:51 PM CDT [facility] HCV Antibody Screen Non Reactive Non Reactive 09/29/2018 3:51 PM CDT [facility] HCV S/C Ratio 0.23 0.00 - 0.79 09/29/2018 3:51 PM CDT [facility] Comment: Dlhscn-tk-litvvw ratio (S/CO) <0.80: Non Reactive Blood BLOOD SPECIMEN / Unknown Venipuncture / Unknown 09/29/2018 3:01 PM CDT 09/29/2018 3:10 PM CDT [facility] - 09/29/2018 3:51 PM CDT Non Reactive - Antibodies to Hepatitis C virus (HCV) were not detected, result does not exclude early acute HCV infection. Tai Thorne MD LAB - CHEMISTRY ORDERABLES Final Result Performing Organization Address [facility] de Phone Number [facility] [address] [place] [address] from Last 3 Months or Most Recently Relevant to Health Maintenance Insurance [facility] Advance Directives * Full Code (Latest Code Status on File) Date Activated Date Inactivated Comments 03/30/2019 4:20 AM 04/06/2019 9:37 PM * Full Code Date Activated Date Inactivated Comments 09/29/2018 2:34 PM 10/02/2018 11:50 AM
--- OUTSIDE RECORDS SUMMARY | 2025-03-22 11:22 | XMS_ITS | Clinical Summary ---
Author Organization [facility] Address [facility] [place] [address] Care Team Providers Care Blasting Worker Name Role Phone None, Provider MD Primary [...] this topic Insurance [employer] Care Teams Blasting Worker Relationship Specialty Start Date End Date None, Provider, MD PCP - General UNKNOWN PHYSICIAN SPECIALTY 10/10/22
--- OUTSIDE RECORDS SUMMARY | 2025-03-22 11:22 | XMS_ITS | Clinical Summary ---
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
--- OUTSIDE RECORDS SUMMARY | 2025-03-22 11:22 | XMS_ITS | Patient Health Record ---
Author Organization [facility] Address [address] [place] [address] Care Team Providers Care Security Developer Name Role Phone Laure Fernandez Primary Care Provider [phone] Carlos Holley Unavailable [phone] Mayco Leal Unavailable [phone] Nicole Martinez Unavailable [phone] Thais Walsh Unavailable [phone] Mar Eason Unavailable [phone] Peter Nye Unavailable [address] Mayco Hawthorne Unavailable [phone] Martine Alan Unavailable [phone] Allergies Allergen (clinical drug ingredient) Drug/Non Drug Allergy documented on EMR Reaction Allergy Type Onset Date Status amoxicillin / clavulanate Augmentin Unknown Drug Allergy Active Results Component Value Reference Range Notes 14 Panel Urine Drug Screen Reviewed date:03/12/2025 02:10:55 PM Interpretation: Performing Lab: Notes/Report: THC neg ZAIRA neg MOP (OPI) neg AMP neg MET neg BAR neg BZO neg MDMA neg MTD neg OXY neg PCP neg BUP POS TCA neg FTY neg Bilateral Venous Doppler of Lower Extremities (Not yet reviewed by provider) Interpretation: Performing Lab: Notes/Report: Buprenorphine and Metabolite (Urine test) Reviewed date:08/27/2024 08:21:23 AM Interpretation: Performing Lab:[facility], [address] [facility], [facility], Phone - [phone], Director - PhDAbudu Notes/Report: Clinical Information:CCU:[id number] LM Buprenorphine Positive Confirmation p erformed by Mass Spectrometry Buprenorphine Positive Buprenorphine Conf, MS, UR 306 Cutoff=10 ng/m L Norbuprenorphine Positive Norbuprenorphine Conf, MS, UR 256 Cutoff=10 n g/mL 12 Panel Urine Drug Screen Reviewed date:08/21/2024 [...] POS 12 Panel Urine Drug Screen Reviewed date:07/19/2024 [...] neg 14 Panel Urine Drug Screen Reviewed date:01/02/2025 03:12:46 PM Interpretation: Performing Lab: Notes/Report: THC neg ZAIRA neg MOP (OPI) neg AMP neg MET neg BAR neg BZO neg MDMA neg MTD neg OXY neg PCP neg BUP POS TCA neg FTY neg 14 Panel Urine Drug Screen Reviewed date:11/30/2024 02:21:01 PM Interpretation: Performing Lab: Notes/Report: THC NEG ZAIRA NEG MOP (OPI) NEG AMP NEG MET NEG BAR NEG BZO NEG MDMA NEG MTD NEG OXY NEG PCP NEG BUP POS TCA NEG FTY NEG Reason For Referral Reason Psych Diagnosis 1 Opioid use disorder (F11.99) Referral Organization [facility] Referring Provider First Name Martine Referring Provider Last Name Dayanna Referring Provider Speciality Psychiatry Referred Provider Specialty Behavioral H ealt Referral Priority Routine Medications Medication SIG (Take, [...] date - stop date) Heavy tobacco s baldomeroker 10/02/2008 - NA Sex Assigned At : [...] school 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 Stress is when someone feels tense, nervous, anxious, or can\t sleep at night because their mind is troubled Very much In the past year have you sp ent more than 2 nights in a row in a [facility], jail, residential center, or juvenile correctional facility? No [...] On probation for meth possession Spiritual Affiliation- [facility] PAST PSYCHIATRIC HISTORY Past Psychiatrist or Therapist [...] Legal History- On probation for meth possession [facility] - - - - - - [...] History- On probation for meth possession Spiritual AffiliationNick Hightower PAST PSYCHIATRIC HISTORY Past Psychiatrist or Therapist [...] On probation for meth possession Spiritual Affiliation- [facility] - - - - - - - [...] On probation for meth possession Spiritual Affiliation- [facility] - - - - - - - [...] On probation for meth possession Spiritual Affiliation- [facility] - - - - - - - [...] On probation for meth possession Spiritual Affiliation- [facility] - - - - - - - [...] On probation for meth possession Spiritual Affiliation- [facility] - - - - - - - [...] Legal History- On probation for meth possession [facility] - - - - - - - [...] W/U Status Risk Notes Problem Morbid obesity (346719873) Morbid obesity (E66.01) Active confirmed Problem Generalized anxiety disorder (08654179) RADHA (generalized anxiety disorder) (F41.1) Active confirmed Problem Psychoactive substance dependence (0548597) Chemical dependency (F19.20) Active confirmed Problem Urinary hesitancy (5205701) Urinary hesitancy (R39.11) Active confirmed Problem Depressive disorder (23213457) Depressive disorder (F32.9) Active confirmed Problem Schizoaffective disorder (11840933) Schizoaffective disorder (F25.9) Active confirmed Problem Overweight (754772686) Over weight (E66.3) Active confirmed Problem Hyperlipidaemia (13724320) Hyperlipemia (E78.5) Active confirmed Problem Obesity (056942897) Obesity (BMI 30-39.9) (E66.9) Active confirmed Problem Insomnia (913907201) Insomnia, unspecified type (G47.00) Active confirmed Problem Opioid dependence (48522688) Opioid use disorder, severe (F11.20) Active confirmed Problem Tobacco use (320408433) Tobacco use disorder (F17.200) Active confirmed Problem Morbid obesity (886683210) Obesity, morbid, BMI 40.0-49.9 (E66.01) Active confirmed Problem Opioid use disorder (3069445407) Opioid use disorder (F11.99) Active confirmed Problem Metabolic syndrome (366379297) Metabolic syndrome (E88.810) Active confirmed Vital Signs Heart Rate 90 /min 03/21/2025 Temperature 97.8 degrees Fahrenheit 03/21/2025 Respiratory Rate 18 /min 03/21/2025 Oximetry 98 % 03/21/2025 Blood pressure diastolic 78 mm Hg 03/21/2025 Height 65 in 03/21/2025 Blood pressure systolic 114 mm Hg 03/21/2025 Weight 299.6 lbs 03/21/2025 BMI 49.85 kg/m2 03/21/2025 Encounters Encounter Location Date Provider Diagnosis [facility] [address] [place] [address] 03/21/2025 Mayco Hawthorne Hyperlipemia E78.5 ; Bilateral leg edema R60.0 ; Fatigue R53.83 ; Metabolic syndrome E88.810 ; Shortness of breath on exertion R06.02 ; Over weight E66.3 ; Elevated blood pressure (not hypertension) R03.0 and Obesity, morbid, BMI 40.0-49.[address] [place] [address] 04/17/2024 Mar Szlufik Opioid use disorder F11.99 ; Obesity, morbid, BMI 40.0-49.9 E66.01 ; Tobacco use disorder F17.200 and Nutritional counseling Z71.[address] [address] 05/18/2024 Mayco Leal Opioid use disorder F11.99 ; Insomnia, unspecified type G47.00 ; Obesity, morbid, BMI 40.0-49.9 E66.01 ; Nutritional counseling Z71.3 and Nicotine dependence, unspecified, uncomplicated F17.[address] [address] 07/19/2024 Carlos Holley Opioid use disorder F11.[address] [address] 08/21/2024 Mar Szlufik Opioid use disorder F11.[address] [address] 10/24/2024 Mar Szlufik Opioid use disorder F11.99 and Over weight E66.[address] [address] 11/30/2024 Thais Sparal Opioid use disorder F11.99 and Over weight E66.[address] [address] 01/02/2025 Carlos Holley Opioid use disorder F11.[address] [address] 02/05/2025 Mar Szlufik Opioid use disorder F11.99 and Over weight E66.[address] [address] 02/05/2025 Peter Nye [address] [address] 02/06/2025 Peter Nye [address] [address] 03/12/2025 Martine Alan Opioid use disorder F11.99 and Tobacco use disorder F17.[address] [address] 04/27/2024 Carlos Holley Exposure to potential infection Z20.9 ; Fatigue R53.83 ; Hyperlipemia E78.5 and Metabolic syndrome E88.[address] [address] 05/18/2024 Nicole Michelle Opioid use disorder F11.[address] [address] 05/22/2024 Mayco Elvis Opioid use disorder F11.[address] [address] 08/21/2024 Mar Eason Assessments Encounter Date Diagnosis (ICD Code) Assessment Notes Treatment Notes Treatment Clinical Notes Section Notes 05/18/2024 Opioid use disorder (ICD-10 - F11.99) 05/18/2024 Opioid use disorder (ICD-10 - F11.99) 05/22/2024 Opioid use disorder (ICD-10 - F11.99) 07/19/2024 Opioid use disorder (ICD-10 - F11.99) 08/21/2024 Opioid use disorder (ICD-10 - F11.99) 10/24/2024 Over weight (ICD-10 - E66.3) 10/24/2024 Opioid use disorder (ICD-10 - F11.99) 11/30/2024 Over weight (ICD-10 - E66.3) 11/30/2024 Opioid use disorder (ICD-10 - F11.99) May self-administer or be administered own oral medication per [place] Protocols. Provided informed consent with understanding of [...] or be administered own oral medication per [place] Protocols. Provided informed consent with understanding of [...] [place] PD[place]- no concerns - UDS-no concerns++BUP 02/05/2025 Over weight (ICD-10 - E66.3) 02/05/2025 [...] 03/12/2025 Opioid use disorder (ICD-10 - F11.99) 04/17/2024 [...] her life or her pain is worsening. 05/18/2024 Obesity, morbid, BMI 40.0-49.9 (ICD-10 - E66.01) 04/27/2024 Fatigue (ICD-10 - R53.83) 03/21/2025 Fatigue (ICD-10 - R53.83) 04/17/2024 Tobacco use disorder (ICD-10 - F17.200) 04/27/2024 Hyperlipemia (ICD-10 - E78.5) 04/17/2024 Nutritional counseling (ICD-10 - Z71.3) 05/18/2024 Nutritional counseling (ICD-10 - Z71.3) 03/21/2025 Metabolic syndrome (ICD-10 - E88.810) 03/21/2025 Shortness of breath on exertion (ICD-10 - R06.02) 04/27/2024 Metabolic syndrome (ICD-10 - E88.810) 05/18/2024 Nicotine dependence, unspecified, uncomplicated (ICD-10 - F17.200) 03/21/2025 Over weight (ICD-10 - E66.3) 03/21/2025 Elevated blood pressure (not hypertension) (ICD-10 - R03.0) Educated patient to take BPs at work for the next week and return for a follow-up/[facility] appointment. 03/21/2025 Obesity, morbid, BMI 40.0-49.9 (ICD-10 [...] self-administe r their own oral medications per [place] Protocol. 10/24/2024 Other Patient agrees to take [...] self-administe r their own oral medications per [place] Protocol. 02/05/2025 Other *Met with health navigator [...] self-administe r their own oral medications per [place] Protocol. 02/05/2025 Other Spray Foam Installer met with Amarilys Mathis to assist in working on building skills to help the consumer gain confidence in their independent living skills. The scientific technical writer practiced with amarilys implementing problem solving skills to help facilitate exploration of options of enrolling in therapy and obtaining resources. The scientific technical writer encouraged and engaged in critical thinking of how to use natural resources and coping skills to help manage symptoms in the moment. Spray Foam Installer also worked on modeling and practicing with the consumer healthy coping skills to reduce stress and anxiety including attending 12 step meetings, enrolling in therapy, using her pitching coach, journaling and exercising. 03/12/2025 Other Patient agrees to take medication [...] may self-administer their own oral medications per [place] Protocol. Plan Of Treatment Future Test Test Name Order Date Echocardiogram 03/21/2025 Chest X-ray PA and lateral 03/21/2025 Electrocardiogram (EKG) 03/21/2025 Hemoglobin A1c CLIA Waived 03/21/2025 Vitamin B12 and Folate 03/21/2025 Iron and TIBC* 03/21/2025 CBC With Differential/Platelet* 03/21/20 D-Dimer 03/21/2025 Lipid Panel With LDL/HDL Ratio CMP 14 Comprehensive Metabolic Panel* Bilateral Venous Doppler of Lower Extrem ities 03/21/2025 TSH+Free T4 03/21/2025 Next Appt Details Provider Name:Jammie Disla, 03/27/2025 01:00:00 PM, [address], [place], [address], Provider Name:Mayco lassiter, 03/28/2025 10:00:00 AM, [address], [place], [address], Medical (General) History Medical History History ICD Code Opioid use disorder Hyperlipemia E78.5 Hx of hypothyroidism (not currently) sepsis (bi-lateral kidney) Surgical History Surgery Date(Month/Year) tonsillectomy 2009 Hospitalization [facility] Reason Date[facility] 10/2022 MRSA 04/09 child 2012
[2025-03-22 11:58] LABS: Hematocrit 39.5 % (37.0-47.0); Hemoglobin 13.0 g/dL (12.0-15.0); Immature Granulocyte Percent A 0.3 % (0-0.5); Lymphocytes Absolute Auto 2.44 K/mm3 (0.9-3.2); Mean Corpuscular HGB Conc 32.9 g/dl (32-36); Mean Corpuscular Hemoglobin 31.0 pg (26-34); Mean Corpuscular Volume 94.0 fl (80-100); Nucleated Red Blood Cells Absolute Auto 0.000 K/mm3 (0.0-0.012); Nucleated Red Blood Cells Perc 0.0 % (0.0-0.2); Platelet Count Result 186 k/mm3 (150-375); Red Blood Count 4.20 M/mm3 (4.2-5.4); White Blood Count 7.9 K/mm3 (4.5-10.0)
[2025-03-22 12:20] LABS: Alanine Aminotransferase 52 U/L (6-35); Albumin Level 3.9 g/dL (3.5-5.1); Alkaline Phosphatase 82 U/L (38-126); Anion Gap 5 mmol/L (4-12); Aspartate Amino Transferase 35 U/L (14-36); Bilirubin,Total 0.4 mg/dL (0.2-1.3); Blood Urea Nitrogen 12 mg/dL (7-17); Calcium 9.2 mg/dL (8.4-10.2); Carbon Dioxide 29 mmol/L (22-30); Chloride 101 mmol/L (98-107); Cholesterol 130 mg/dL (0-200); Estimated Glomerular Filt Rate > 60; Glucose 115 mg/dL (65-110); HDL Direct 35 mg/dL; Potassium 4.1 mmol/L (3.4-5.0); Sodium 135 mmol/L (137-145); Total Protein 7.5 g/dL (6.3-8.2); Triglycerides 239 mg/dL (<150)
[2025-03-22 12:28] LABS: Iron 74 ug/dL (37-170)
[2025-03-22 12:37] LABS: Percent Iron Saturation 20 % (20-50)
[2025-03-22 13:31] LABS: Vitamin B12 387.0 pg/mL (239-931)
[2025-03-23 07:46] LABS: Free T4 Free Thyroxine 1.31 ng/dL (0.78-2.19)
[2025-03-23 08:01] LABS: Thyroid Stimulating Hormone 3.790 uIU/mL (0.465-4.680)
== END 2025-03-22 11:17 | disposition home or self-care (01) ==
DX: R06.02 Shortness of breath (principal); I45.10 Unspecified right bundle-branch block; R53.83 Other fatigue; E78.5 Hyperlipidemia, unspecified; R60.0 Localized edema; F17.210 Nicotine dependence, cigarettes, uncomplicated
CPT/HCPCS: 36415; 71046; 80053; 80061; 82607; 82746; 83540; 83550; 84439; 84443; 85025; 93005

== ENCOUNTER 2025-03-27 12:56 | Outpatient (CLI) | payer OTHER, SELFPAY | END 2025-03-27 12:57 | disposition home or self-care (01) | LOC: ANHCARD 12:58 | DX: R53.83 Other fatigue (principal); R60.0 Localized edema; E78.5 Hyperlipidemia, unspecified | CPT/HCPCS: 36415; 85380 ==

== ENCOUNTER 2025-05-03 13:34 | Emergency (ER) | payer OTHER, SELFPAY ==
--- NOTE | 2025-05-03 13:35 | ED.URI ---
HPI - URI/Sore Throat General Chief Complaint: Upper Respiratory Infection Stated Complaint: sore throat/headache Time Seen by Provider: 05/03/25 13:35 Source: patient Mode of arrival: ambulatory Limitations: no limitations History of Present Illness HPI Narrative: Yohana is a 34 year old female patient presenting to the clinic today with c/o sore throat, nasal congestion, and headache x1 day. States her symptoms just started yesterday. Her son is also sick with similar symptoms in the clinic today. Has not taken any medications for her symptoms. Denies any chest pain or shortness of breath. MD elicited complaint: sore throat and nasal congestion Related Data Home Medications ?Medication ?Instructions ?Recorded ?Confirmed ?Last Taken ?Type buprenorphine 8 mg-naloxone 2 mg 1 film buccal TID 11/22/23 05/13/24 Unknown History sublingual film (Suboxone) Allergies Allergy/AdvReac Type Severity Reaction Status Date / Time amoxicillin (From Augmentin) Allergy Mild Hypertensio Verified 05/03/25 13:52 n clavulanic acid (From Allergy Mild Hypertensio Verified 05/03/25 13:52 Augmentin) n Review of Systems Review of Systems: Pertinent positives per HPI. Patient denies any fever, chills, rash, visual changes, dizziness, shortness of breath, chest pain, palpitations, nausea, vomiting, diarrhea, constipation, abdominal pain, or any urinary issues. FORMERLY [facility] Past Medical History Medical History Schizophrenia ?? Irritable bowel syndrome HPV (human papilloma virus) anogenital infection Cervical dysplasia Hepatitis C Intravenous drug abuse in remission Patient used IV methamphetamines, heroin, fentanyl, prescription narcotics and smoked methamphetamines in the past. She entered rehab in October of 2022. Morbid obesity Anxiety and depression Surgical History Surgical History History of tonsillectomy and adenoidectomy Family History Family History Grandparent Pancreatic cancer Social History Social History Social History: Patient lives at home with her 10-year-old son and her grandmother and grandfather. She was raised by her grandparents after her father overdosed and her mother committed suicide. Her son is 10 years old (as of November 2023). She has smoked 1-2 packs cigarettes per day since she was in her early teens. She does drink alcohol on occasion. She has a long history of polysubstance abuse. She started smoking and injecting meth at 21 and then in her mid 20s transition to combination of meth and fentanyl. She still smokes marijuana somewhat regularly. Code status: Full code Surrogate decision maker: Joseph Mathis Smoking packs per day: 2 Smoking cigarettes per day: 40.0 Years smoked: 15 Smoking pack-years: 30.00 Smoking status: Current every day smoker Tobacco type: cigarettes Alcohol intake: current Substance use: current Substance use type: marijuana, heroin, opiates, IV drugs and methamphetamine Other substance usage details: Patient has used a combination of meth, fentanyl/opiates in various forms Last use: October 2022 Do You Feel Safe in your Home?: Yes Lack of Transportation: No Lack of Food: Sometimes True Current Housing: I Have Housing Concerned About Future Housing: No Difficulty Paying Gas/Electric Bills: No Difficulty Paying for Meds: No Currently Unemployed: No Education: High School Diploma/GED Difficulty w/ Childcare or Family Care: No Occupation/Education: occupation Additional occupation/education comments: She works in a [employer] Spiritual care concerns: No Comments At the time of my signature, I reviewed and agree with the nursing past medical, surgical, social, and family history. There is no relevant family history pertinent to the patient complaint. Exam Narrative: General: Well-developed, morbidly obese, in no apparent distress Head: Normocephalic, atraumatic Eyes: Pupils equally round and reactive to light bilaterally, EOM intact, sclera and conjunctive clear, no discharge, lids normal Ears: TMs intact and clear, ear canals clear, no drainage, grossly hearing normal. Nose: Nares patent, clear nasal discharge, no inflammation, no sinus tenderness. Mouth: Oropharynx red without lesions or masses, good dentition, MMM. Postnasal drip Neck: Supple, trachea midline, no enlargement of anterior or posterior cervical nodes, no thyroid masses or goiter palpable. Cardio: Regular rate and rhythm, s1 and s2 normal, no murmur appreciated. Resp: Clear to auscultation bilaterally anteriorly and posteriorly, no rhonchi, rales, wheezing or rubs Course Course Emergency Course: Portions of this record may have been created with voice recognition software. Level of Care: Express Care Visit Vital Signs Vital signs: Vital Signs Temperature 36.8 C 05/03/25 13:45 Pulse Rate 87 05/03/25 13:45 Respiratory Rate 16 05/03/25 13:45 Blood Pressure 130/96 H 05/03/25 13:45 Pulse Oximetry 97 05/03/25 13:45 Oxygen Delivery Room Air 05/03/25 13:45 Temperature 36.8 C 05/03/25 13:45 Pulse Rate 87 05/03/25 13:45 Respiratory Rate 16 05/03/25 13:45 Blood Pressure 130/96 H 05/03/25 13:45 Pulse Oximetry 97 05/03/25 13:45 Oxygen Delivery Room Air 05/03/25 13:45 Vital signs reviewed MDM - URI/Sore Throat MDM Narrative Medical decision making narrative: At the time of visit patient is resting comfortably on the exam table. Patient appears to be nontoxic. C/o sore throat and headache x1 day. States her symptoms just started yesterday. Her son is also sick with similar symptoms in the clinic today. Has not taken any medications for her symptoms. Denies any chest pain or shortness of breath. On exam patient has bilateral TMs intact and clear, clear nasal drainage, mild inflammation the anterior turbinates, oropharynx mildly red with postnasal drip, lung sounds are clear, heart rates regular rate rhythm. COVID, influenza, and strep test was ordered. Labs: Strep, COVID, and influenza testing was negative in the clinic today. Plan: I suspect patient has URI/pharyngitis. Work note was given. Supportive measures were discussed with the patient and they voiced understanding discharge instructions and agrees to treatment plan. Return precautions reviewed Differential Diagnosis Differential diagnosis: Likely upper respiratory infection, otitis media, sinusitis, viral infection, bronchitis, influenza, pharyngitis and other (COVID) Lab Data Labs: Lab Results 05/03/25 Range/Units 13:47 POC Grp A Strep Screen Negative (Negative) Discharge Plan Discharge Clinical Impression: URI (upper respiratory infection) Qualifiers: URI type: unspecified URI Qualified Code(s): J06.9 - Acute upper respiratory infection, unspecified Pharyngitis Qualifiers: Pharyngitis/tonsillitis etiology: unspecified etiology Qualified Code(s): J02.9 - Acute pharyngitis, unspecified Patient Disposition: Home Condition: Stable Instructions: Antibiotic Form, Pharyngitis (ED), Cold Symptoms (ED) Additional Instructions: COVID, influenza, and strep test were all negative in the clinic today. We will send strep for culture and if this comes back positive we will contact you and place you on antibiotics at that time. May take Coricidin HBP for cold/flu symptoms. Increase fluids and stay well hydrated May take Tylenol or motrin as directed on bottle for pain/fever May use Flonase 1 spray in each nare daily May take OTC antihistamines such as Zyrtec or Claritin daily as directed on bottle May apply Vicks vapor rub to chest to open sinuses Sinus rinses for congestion Cepacol spray, cough drops, throat lozenges, warm tea with honey/lemon, gargle salt water to soothe throat BRAT diet for diarrhea Clear liquids x 24 hours then advance as tolerated for nausea/vomiting Go to the ED if you develop a worsening in your condition- high fever not controlled by Tylenol or Motrin, dehydration, weakness, lethargy, shortness of breath, or chest pain. Follow up with your PCP in 3-5 days if symptoms persist. Patient Language: [place]i Prescriptions: No Action (DME) Aerochamber MV Spacer See Rx Instructions .Route Qty: 1 0RF Rx Instructions: As directed buprenorphine-naloxone [Suboxone] 8-2 mg Film 1 film BUCCAL TID ofloxacin 0.3 % drops See Rx Instructions .ROUTE .COMPLEX Qty: 10 0RF Rx Instructions: put 1-2 drps into left eye every 2-4 h x 2 days, then 1-2 drps 4 times/day days 3-7 Follow-up/Referrals: Marine,Mayco Kaiser APRN [Primary Care Provider, Unknown] Stand Alone Forms: Work/School Release IP Time of Disposition: 14:00 Quality NIHSS Nursing Documentation ED NIHSS nursing documentation: reviewed/agree
[2025-05-03 13:45] VITALS: BP 130/96; PULSE 87; RESP 16; TEMP 36.8; O2SAT 97; O2SAT 99
[2025-05-03 14:03] LABS: EDSTREPNEGPOS1 Negative (Negative)
[2025-05-03 14:10] LABS: EDCOVIDSCREEN Negative (Negative); EDINFLUASCREEN Negative (Negative); EDINFLUBSCREEN Negative (Negative)
== END 2025-05-03 14:10 | disposition home or self-care (01) ==
PROVIDERS: Emergency Provider Nurse Practitioner Family; PCP Registered Nurse
DX: J06.9 Acute upper respiratory infection, unspecified (principal); J02.9 Acute pharyngitis, unspecified; Z20.822 Contact with and (suspected) exposure to COVID-19; F17.210 Nicotine dependence, cigarettes, uncomplicated; F12.90 Cannabis use, unspecified, uncomplicated; F19.10 Other psychoactive substance abuse, uncomplicated; E66.01 Morbid (severe) obesity due to excess calories; Z68.43 Body mass index [BMI] 50.0-59.9, adult
CPT/HCPCS: 87081; 87426; 87804; 87880; 99213; G0463